=== PATIENT | female | born 1965 | race Two or more races ===

== ENCOUNTER 2020-04-17 13:49 | Outpatient (REF) | payer OTHER, SELFPAY ==
--- NOTE | 2020-04-17 | MM_ITS ---
EXAMINATION: MM SCREENING DIGITAL BREAST TOMOSYNTHESIS, BILATERAL CLINICAL INFORMATION: Screening. Asymptomatic. The lifetime risk of breast cancer based on the Tyrer-Cuzick Model is 7.0%. COMPARISON: Mammography: October 08, 2018 and studies dating back to December 06, 2011 TECHNIQUE: Digital breast tomosynthesis is performed in both the craniocaudal and mediolateral oblique views along with computer-aided detection (CAD). Synthesized 2D images are generated from the tomosynthesis. FINDINGS: There are scattered areas of fibroglandular density (ACR BI-RADS breast composition Category b). There are no significant masses, abnormal calcifications, or other abnormalities. There is a stable circumscribed density about the superior aspect of the left breast. MM/MM tomosynthesis screening BI IMPRESSION: There are no significant changes from prior study. ASSESSMENT: BI-RADS 1: Negative RECOMMENDATION: Routine annual mammography screening. This patient's information was entered into a reminder system with a target due date for their next mammogram.
== END 2020-04-17 13:50 | disposition home or self-care (01) ==
LOC: HO.MAMMO 13:49
PROVIDERS: PCP Internal Medicine; Visit Provider Internal Medicine
DX: Z12.31 Encounter for screening mammogram for malignant neoplasm of breast (principal)
CPT/HCPCS: 77063; 77067

== ENCOUNTER → 2020-06-29 14:25 | Outpatient (BNVA) | payer OTHER, SELFPAY | PROVIDERS: PCP Internal Medicine; Visit Provider Nurse Practitioner | DX: Z01.818 Encounter for other preprocedural examination (principal) | CPT/HCPCS: Q3014 ==

== ENCOUNTER 2020-11-04 13:50 | Outpatient (REF) | payer OTHER, SELFPAY ==
--- NOTE | ~2020-11-04 | US_ITS ---
EXAMINATION: US EXTRACRANIAL CAROTID DUPLEX, BILATERAL CLINICAL INFORMATION: Unilateral hypertensive retinopathy of the left COMPARISON: None TECHNIQUE: Real-time ultrasound and Doppler techniques (integrating B-mode 2-D vascular images, Doppler spectral analysis and color-flow Doppler imaging) were utilized to interrogate the extracranial carotid arteries, the vertebral arteries and proximal subclavian arteries bilaterally. The degree of stenosis is determined by criteria similar to NASCET. FINDINGS: Right Side: 1. There is trace atherosclerotic plaque seen in the bifurcation/proximal ICA region. 2. The common carotid artery PSV proximally is 120 cm/s and distally 94.4 cm/s. 3. The proximal internal carotid artery velocities are 70.9 cm/s systolic and 22.3 cm/s diastolic. 4. The proximal external carotid artery PSV is 117 cm/s. 5. The vertebral artery shows antegrade flow. 6. The subclavian artery waveforms are normal. Left Side: 1. There is minimal atherosclerotic plaque seen in the bifurcation/proximal ICA region. 2. The common carotid artery PSV proximally is 122 cm/s and distally 92.6 cm/s. 3. The proximal internal carotid artery velocities are 70.9 cm/s systolic and 18.8 cm/s diastolic. 4. The proximal external carotid artery PSV is 123 cm/s. 5. The vertebral artery shows antegrade flow. 6. The subclavian artery waveforms are normal. US/US carotid duplex BI IMPRESSION: 1. RIGHT: Minimal, non-hemodynamically significant stenosis of the proximal right internal carotid artery corresponding to a 0-49% stenosis by velocity criteria. 2. LEFT: Minimal, non-hemodynamically significant stenosis of the proximal left internal carotid artery corresponding to a 0-49% stenosis by velocity criteria.
== END 2020-11-04 13:51 | disposition home or self-care (01) ==
LOC: HO.HMGCX 13:50
PROVIDERS: PCP Internal Medicine; Visit Provider Internal Medicine
DX: H35.032 Hypertensive retinopathy, left eye (principal)
CPT/HCPCS: 93880

== ENCOUNTER 2020-11-27 10:57 | Outpatient (REF) | payer OTHER, SELFPAY ==
[2020-11-27 12:20] LABS: Cholesterol 225 mg/dL; HDL Cholesterol 51 mg/dL; LDL Cholesterol Calculated 139 mg/dl; Triglycerides 179 mg/dL
[2020-11-27 13:02] LABS: Creatinine Urine 150.67 mg/dL; Microalbum/Creatinine Ratio Ur 11.2 ug/mg cr
== END 2020-11-27 10:58 | disposition home or self-care (01) ==
LOC: HO.LAB 10:57
PROVIDERS: PCP Internal Medicine; Visit Provider Internal Medicine
DX: I10 Essential (primary) hypertension (principal)
CPT/HCPCS: 36415; 80061; 82043

== ENCOUNTER 2021-05-20 11:53 | Outpatient (REF) | payer OTHER, SELFPAY ==
--- NOTE | ~2021-05-20 | MM_ITS ---
EXAMINATION: MM SCREENING DIGITAL BREAST TOMOSYNTHESIS, BILATERAL CLINICAL INFORMATION: Screening. Asymptomatic. The lifetime risk of breast cancer based on the Tyrer-Cuzick Model is 14%. COMPARISON: Mammography: 04/17/2020, 10/08/2018, 09/18/2017 TECHNIQUE: Digital breast tomosynthesis is performed in both the craniocaudal and mediolateral oblique views along with computer-aided detection (CAD). Synthesized 2D images are generated from the tomosynthesis. Additional right CC view is provided. FINDINGS: There are scattered areas of fibroglandular density (ACR BI-RADS breast composition Category b). There are no significant masses, abnormal calcifications, or other abnormalities. Parenchymal pattern is similar to prior studies. There is no developing density or architectural abnormality. The axilla and skin contours are unremarkable. No significant changes. MM/MM tomosynthesis screening BI IMPRESSION: No mammographic evidence of malignancy. ASSESSMENT: BI-RADS 1: Negative RECOMMENDATION: Routine annual mammography screening. This patient's information was entered into a reminder system with a target due date for their next mammogram.
== END 2021-05-20 11:54 | disposition home or self-care (01) ==
LOC: HO.MAMMO 11:53
PROVIDERS: PCP Internal Medicine; Visit Provider Internal Medicine
DX: Z12.31 Encounter for screening mammogram for malignant neoplasm of breast (principal)
CPT/HCPCS: 77063; 77067

== ENCOUNTER 2021-07-23 10:46 | Outpatient (REF) | payer OTHER, SELFPAY ==
[2021-07-23 12:39] LABS: MANUAL DIFF FLAG NO
[2021-07-23 13:00] LABS: Basophils Absolute Auto 0.1 X10*3/uL (0.0-0.2); Basophils Percent Auto 0.7 % (0-2); Eosinophils Absolute Auto 0.1 X10*3/uL (0.0-0.4); Eosinophils Percent Auto 1.5 % (0-4); Hematocrit 42.1 % (37.0-47.0); Hemoglobin 14.3 g/dl (12.0-16.0); Imm Gran Abs Auto 0.05 X10*3/uL (0.00-0.03); Imm Gran Pct Auto 0.6 % (0.0-0.4); Lymphocytes Absolute Auto 3.3 X10*3/uL (1.2-4.9); Lymphocytes Percent Auto 38.1 % (20-40); Mean Corpuscular Hemoglobin 28.2 pg (27.0-33.0); Mean Platelet Volume 9.3 fL (9.4-12.3); Monocytes Absolute Auto 0.7 X10*3/uL (0.1-1.2); Monocytes Percent Auto 7.6 % (2-11); Neutrophils Absolute Auto 4.4 x10*3/uL (2.0-8.3); Neutrophils Percent Auto 51.5 % (45-73); Platelet Count 296 X10*3/uL (160-400); Red Blood Count 5.07 X10*6/uL (4.20-5.50); Red Cell Distribution Width 12.8 % (11.0-16.0); White Blood Count 8.6 X10*3/uL (4.8-10.8)
[2021-07-23 13:19] LABS: Alanine Aminotransferase 36 U/L (0-31); Albumin Level 4.5 g/dL (3.5-5.0); Alkaline Phosphatase 89 U/L (39-117); Anion Gap 12 (12-20); Aspartate Amino Transferase 24 U/L (5-31); Bilirubin Total 0.5 mg/dL (0.0-1.0); Blood Urea Nitrogen 10 mg/dL (9-16); Calcium 9.9 mg/dL (8.4-10.2); Carbon Dioxide 28 mmol/L (22-29); Chloride 103 mmol/L (96-108); Estimated Glomerular Filt Rate > 60; Glucose Random 128 mg/dL (60-115); Potassium 4.1 mmol/L (3.3-5.1); Sodium 139 mmol/L (135-145); Total Protein 7.8 g/dL (6.5-8.0)
== END 2021-07-23 10:47 | disposition home or self-care (01) ==
LOC: HO.LAB 10:46
PROVIDERS: PCP Internal Medicine; Referring Provider Internal Medicine; Visit Provider Nurse Practitioner
DX: Z12.11 Encounter for screening for malignant neoplasm of colon (principal)
CPT/HCPCS: 36415; 80053; 85025; 99212

== ENCOUNTER 2021-10-29 10:19 | Day surgery (SDC) | payer OTHER, SELFPAY ==
[2021-10-25 12:16] VITALS: BMI 30.2
--- NOTE | 2021-10-28 13:57 | P.CONAN_ITS ---
Documented by User: Akosua Parish NP 10/28/21 13:58 HPI - Anesthesia Eval Consult details Narrative: 56yo F for Colonoscopy PMFSH Active Problems Active Problems: All Active Problems (Updated 10/25/21 @ 12:13 by Luz Cotto, INÉS) Colon cancer screening (Acute) Positive PPD (Acute) Hypertension (Acute) Rosacea (Acute) Insomnia (Acute) Allergic rhinitis (Acute) Chronic neck pain (Acute) Lipoma of neck (Acute) Diabetes (Acute) Past Medical History Medical History Diabetes History of positive PPD HTN (hypertension) Rosacea Surgical History Surgical History No history of previous surgery Social History Social History (Updated 10/29/21 @ 10:55 by Yanet Bowen MD) Household Members: Spouse Alcohol intake: current Alcohol intake frequency: does not drink Patient Tobacco Use Status: Never used Tobacco Use of substances other than those prescribed or required for medical reasons: No Are you DNR?: No Advance Directives: No Advance Directives Information Provided: Yes Meds Allergies Allergy/AdvReac Type Severity Reaction Status Date / Time No Known Allergies Allergy Verified 07/23/21 11:40 Home Medications Medication Instructions Recorded Confirmed Last Taken Type chlorthalidone 25 mg tablet 25 mg PO DAILY 06/29/20 Unknown History hydrocortisone 2.5 % topical cream appl topical 06/29/20 Unknown History Exam Exam Date and Time: October 28, 2021 1357 Height,Weight and Vital Signs: Height 5 ft 2 in Weight 74.843 kg Pertinent Lab Results Pertinent Lab Results: Laboratory Tests 07/23/21 07/23/21 12:36 12:36 WBC 8.6 Hgb 14.3 Hct 42.1 Plt Count 296 Sodium 139 Potassium 4.1 Chloride 103 Carbon Dioxide 28 BUN 10 Creatinine 0.84 Assessment and Plan Assessment Anesthesia Assessment: Chart Reviewed Documented by User: Yanet Bowen MD 10/29/21 12:03 [facility] Active Problems Active Problems: All Active Problems (Updated 10/25/21 @ 12:13 by Luz Cotto RN) Colon cancer screening (Acute) Positive PPD (Acute) Hypertension (Acute) Rosacea (Acute) Insomnia (Acute) Allergic rhinitis (Acute) Chronic neck pain (Acute) Lipoma of neck (Acute) Diabetes diet-controlled Past Medical History Medical History Diabetes History of positive PPD HTN (hypertension) Rosacea Family History Family history of problems with anesthesia: No Surgical History Surgical History No history of previous surgery History of Problems with Anesthesia: No Social History Social History (Updated 10/29/21 @ 10:55 by Yanet Bowen MD) Household Members: Spouse Alcohol intake: current Alcohol intake frequency: does not drink Patient Tobacco Use Status: Never used Tobacco Use of substances other than those prescribed or required for medical reasons: No Are you DNR?: No Advance Directives: No Advance Directives Information Provided: Yes Meds Allergies Allergy/AdvReac Type Severity Reaction Status Date / Time No Known Allergies Allergy Verified 07/23/21 11:40 Home Medications Medication Instructions Recorded Confirmed Last Taken Type chlorthalidone 25 mg tablet 25 mg PO DAILY 06/29/20 Unknown History hydrocortisone 2.5 % topical cream appl topical 06/29/20 Unknown History Exam Height,Weight and Vital Signs: Height 5 ft 2 in Weight 74.843 kg Vital Signs Temp Pulse Resp BP Pulse Ox O2 Del Method 10/29/21 10:55 97.3 F 83 16 147/91 H 98 Room Air Airway Mallampati Class: II TM Dist: >3cm Neck ROM: Full Loose/Missing/Broken Teeth: Yes (1 missing bottom left) Heart: RRR Lungs: CTAB Assessment and Plan Assessment Anesthesia Assessment: Anesthesia Plan Discussed Final Anesthetic Review Family History of Problems with Anesthesia: No History of Problems with Anesthesia: No NPO: Yes ASA Class: II Final Preanesthetic Review: No Changes in Pt Med Stat, Meds/Allgs Chart Reviewed, Consent Obtained/Reviewed and Anes Risks/Benef Reviewed Patient Risk: Low Procedure Risk: Low Assessment/Block/Sedation in SS: Assess/Block/Sedation-SS Anesthetic Plan Anesthetic Plan: MAC: Disposition: Standard PACU
[2021-10-29 10:55] VITALS: BP 147/91; PULSE 83; RESP 16; TEMP 36.3; O2SAT 98
--- NOTE | 2021-10-29 11:28 | MHC.SHP ---
Pre-Procedural Eval Section A Date of Service: 10/29/21 The patient is an INPATIENT: No The History & Physical has been completed within 30 days and I have reviewed it.: No Section B Chief Complaint: screening Details of Present Illness: Colon cancer screening, brother had colon surgery (indication not know to the patient) Relevant Social History: None Present Medications: see Short Stay Collaborative assessment Medical History: Significant History (History of positive PPD Hypertension In occult blood in the stools Rosacea Insomnia History of leiomyoma of the uterus Allergic rhinitis/conjunctivitis Chronic neck pain LIpoma left neck) History of Previous Operations: No relevant previous surgery Allergies: Allergies Allergy/AdvReac Type Severity Reaction Status Date / Time No Known Allergies Allergy Verified 07/23/21 11:40 Review of Systems Sugical H&P ROS: Negative: Constitution, Cardiovascular, Respiratory and Gastrointestinal Exam Surgical H&P Exam: Normal: Heart, Normal: Lungs, Normal: Extremities and Normal: Abdomen Plan Diagnosis/Plan: Unchanged I have reviewed the history and physical and performed a pertinent physical examination on my patient. No changes have occurred unless specified.
--- NOTE | 2021-10-29 12:29 | P.OP_ITS ---
Operative Note Operative Note Date of Service: 10/29/21 Narrative: Pre-op diagnosis: Colon cancer screening, brother had colon surgery (indication not know to the patient) Post-op diagnosis:?other (Colon polyps, diverticulosis, hemorrhoids) Procedure: COLONOSCOPY TILL CECUM WITH BIOPSIES AND SNARE POLYPECTOMY Consent: Indications for the procedure and potential complications of bleeding, perforation, reaction to medications and missed diagnosis were discussed with the patient and informed consent was obtained. Instrument: Olympus PCF H 190 L variable stiffness pediatric colonoscope Monitoring: Vital signs and clinical assessment, intermittent blood pressure monitoring, continuous EKG monitoring, Pulse oximetry and Carbon Dioxide monitoring were done throughout the procedure. Colon withdrawl time was 20 minutes. Procedure: The patient was placed in the left lateral decubitis position and pre-procedure medications were administered. After a digital rectal examination of the ano-rectum, the video colonoscope was inserted into the rectum and advanced through the colon to the cecum. The colonoscope was slowly withdrawn in a retrograde panoramic fashion and the colon mucosa was carefully examined including a retroflexed view of the rectum. Findings and interventions are described below. Procedure Difficulty: Without difficulty Findings: Terminal Ileum: Not evaluated Cecum:? Normal Ascending Colon:? A 3-4 mm diminutive appearing polyp removed with a cold biopsy Transverse Colon:? Two 12 - 15 mm sessile polyps removed with a hot snare. Descending Colon:? Moderate diverticulosis Sigmoid Colon:? Two 12 to 15 mm sessile polyps removed with a hot snare. A 2 to 2.5 cms sessile polyp at 25 cms removed with a hot snare. Moderate diverticulosis Rectum:? Normal Ano-rectum:? Moderate internal hemorrhoids Colon preparation: Excellent ? Impression and Post Procedure Diagnosis: Colonoscopy Findings: Six small to medium sized and one large polyps removed Moderate diverticulosis seen in the left colon Moderate hemorrhoids on retroflexed exam. Plan: Await pathology results Patient has an appointment on 11/12/21 in the GI Clinic with? Radha Kang NP. Repeat Colonoscopy interval based on path results - in 2 years if polyps are adenomatous and 10 years if polyps are hyperplastic. Above findings were reviewed with the patient and colon polyps and diverticulosis handouts were given in the discharge area Surgeon: Lourdes Fried MD Anesthesia:?MAC Was an Bag Machine Operator used for this Procedure?:?Yes Bag Machine Operator:?Darlene Fontana Estimated blood loss (mL):?0 Pathology:?other ( A: biopsy ascending colon polyp? B: transverse colon polyps? C: sigmoid polyps? D: sigmoid polyp at 25 cm) Condition:?stable Disposition:?PACU
[2021-10-29 13:06] VITALS: BP 90/59; PULSE 74; RESP 16; TEMP 37.1; O2SAT 96
[2021-10-29 13:21] VITALS: BP 136/73; PULSE 70; RESP 17; O2SAT 99
[2021-10-29 13:36] VITALS: BP 135/69; PULSE 85; RESP 18; TEMP 37.1; O2SAT 96
== END 2021-10-29 14:00 | disposition home or self-care (01) ==
PROVIDERS: PCP Internal Medicine; Visit Provider Internal Medicine Gastroenterology
PROC: 0DJD8ZZ Inspection of Lower Intestinal Tract, Via Natural or Artificial Opening Endoscopic (ICD-10-PCS; CPT 45378; principal; 2021-10-29 11:40)
DX: Z12.11 Encounter for screening for malignant neoplasm of colon (principal); D12.3 Benign neoplasm of transverse colon; D12.5 Benign neoplasm of sigmoid colon; K63.5 Polyp of colon; K57.30 Diverticulosis of large intestine without perforation or abscess without bleeding; K64.8 Other hemorrhoids; I10 Essential (primary) hypertension; R76.11 Nonspecific reaction to tuberculin skin test without active tuberculosis; E11.9 Type 2 diabetes mellitus without complications; H57.13 Ocular pain, bilateral; L71.9 Rosacea, unspecified; J30.9 Allergic rhinitis, unspecified
CPT/HCPCS: 45385; 45380; 88305

== ENCOUNTER → 2021-11-12 11:19 | Outpatient (BNVA) | payer OTHER, SELFPAY | PROVIDERS: PCP Internal Medicine; Visit Provider Nurse Practitioner | DX: D12.6 Benign neoplasm of colon, unspecified; Z79.899 Other long term (current) drug therapy | CPT/HCPCS: 99212 ==

== ENCOUNTER 2021-12-09 14:05 | Outpatient (REF) | payer OTHER, SELFPAY ==
[2021-12-09 15:18] LABS: Appearance Urine Clear; Color Urine Yellow; Glucose Urine UA Negative (Negative); Leukocyte Esterase Urine Moderate (2+) (Negative); Nitrite Urine Negative (Negative); PH 6.5 (5.0-9.0); UMIC TRIGGER UACC YES; Urine Blood Trace (Negative); Urine Ketones Negative (Negative); Urine Protein Negative (Neg-Trace)
[2021-12-09 15:51] LABS: Bacteria Urine None Seen (None Seen); Hyaline Casts Urine 0-2 /LPF (0-2); RBC Urine 0-2 /HPF (0-2); Squamous Epithelial Cell Urine 0-2 /HPF (0-2); WBC Urine 0-5 /HPF (0-5)
== END 2021-12-09 14:06 | disposition home or self-care (01) ==
LOC: HO.LAB 14:05
PROVIDERS: Visit Provider Nurse Practitioner
DX: R10.13 Epigastric pain (principal); R19.5 Other fecal abnormalities; R30.0 Dysuria
CPT/HCPCS: 81001; 81003; 99212

== ENCOUNTER 2021-12-10 13:51 | Outpatient (REF) | payer OTHER, SELFPAY ==
[2021-12-10 15:28] LABS: Campylobacter Not Detected (Not Detect.); Cryptosporidium Not Detected (Not Detect.); E. coli EAEC Not Detected (Not Detect.); E. coli EPEC Not Detected (Not Detect.); E. coli ETEC Not Detected (Not Detect.); E. coli STEC Not Detected (Not Detect.); Plesiomonas shigelloides Not Detected (Not Detect.); Salmonella Not Detected (Not Detect.); Shigella sp./EIEC Not Detected (Not Detect.); Vibrio Not Detected (Not Detect.); Vibrio Cholerae Not Detected (Not Detect.); Yersinia enterocolitica Not Detected (Not Detect.)
[2021-12-10 15:29] LABS: Adenovirus F 40/41 Not Detected (Not Detect.); Astrovirus Not Detected (Not Detect.); Cyclospora cayetanensis Not Detected (Not Detect.); Entamoeba histolytica Not Detected (Not Detect.); Giardia lamblia Not Detected (Not Detect.); Norovirus GI/GII Not Detected (Not Detect.); Rotavirus A Not Detected (Not Detect.); Sapovirus Not Detected (Not Detect.)
== END 2021-12-10 13:52 | disposition home or self-care (01) ==
LOC: HO.LNP 13:51
PROVIDERS: Visit Provider Nurse Practitioner
DX: R30.0 Dysuria (principal); R19.5 Other fecal abnormalities
CPT/HCPCS: 87507

== ENCOUNTER 2022-01-07 12:25 | Outpatient (REF) | payer OTHER, SELFPAY ==
--- NOTE | 2022-01-07 | PFT_ITS ---
FLOWS: FEV1 109% of predicted at 2.44 L. FVC 96% of predicted at 2.73 L. FEV1 to FVC ratio of 0.89. The patient refused bronchodilator testing. LUNG VOLUMES: Total lung capacity 87% of predicted at 3.91 L. Residual volume 66% of predicted at 1.16 L. Slow vital capacity 101% of predicted at 2.75 L. Expiratory reserve volume 41% of predicted at 0.30 L. Diffusion capacity is normal. IMPRESSION: No obstructive or restrictive ventilatory defect. The patient refused bronchodilator testing. Decreased expiratory reserve volume suggests extrathoracic restriction likely secondary to abdominal obesity. Elias Partida MD AP/MODL / [id number]
--- NOTE | ~2022-01-07 | XR_ITS ---
EXAMINATION: XR CHEST CLINICAL INFORMATION: Shortness of breath COMPARISON: Previous chest x-ray most recent March 2018 TECHNIQUE: 2 views of the chest were obtained. FINDINGS: No significant abnormality is noted involving the heart, lungs, mediastinum, bony thorax or soft tissues. XR/XR chest 2V IMPRESSION: Unremarkable examination.
== END 2022-01-07 12:26 | disposition home or self-care (01) ==
LOC: HO.RESP 12:25
PROVIDERS: Absent Provider Internal Medicine; PCP Internal Medicine; Visit Provider Family Medicine
DX: R06.02 Shortness of breath (principal)
CPT/HCPCS: 71046; 94010; 94727; 94729

== ENCOUNTER → 2022-01-19 14:02 | Outpatient (BNVA) | payer OTHER, SELFPAY | PROVIDERS: PCP Internal Medicine; Referring Provider Internal Medicine; Visit Provider Nurse Practitioner | DX: R30.0 Dysuria (principal); K21.9 Gastro-esophageal reflux disease without esophagitis; R19.5 Other fecal abnormalities; D12.6 Benign neoplasm of colon, unspecified | CPT/HCPCS: 99212 ==

== ENCOUNTER 2022-06-07 11:33 | Outpatient (REF) | payer OTHER, SELFPAY ==
--- NOTE | ~2022-06-07 | MM_ITS ---
EXAMINATION: MM SCREENING DIGITAL BREAST TOMOSYNTHESIS, BILATERAL CLINICAL INFORMATION: Screening. Asymptomatic. The lifetime risk of breast cancer based on the Tyrer-Cuzick Model is 12%. COMPARISON: Mammography: 05/20/2021, 04/17/2020, 10/08/2018 TECHNIQUE: Digital breast tomosynthesis is performed in both the craniocaudal and mediolateral oblique views along with computer-aided detection (CAD). Synthesized 2D images are generated from the tomosynthesis. FINDINGS: There are scattered areas of fibroglandular density (ACR BI-RADS breast composition Category b). There are no significant masses, abnormal calcifications, or other abnormalities. No architectural abnormality or developing density or significant change from prior studies. The axilla and skin contours are unremarkable. MM/MM tomosynthesis screening BI IMPRESSION: No mammographic evidence of malignancy. ASSESSMENT: BI-RADS 1: Negative RECOMMENDATION: Routine annual mammography screening. This patient's information was entered into a reminder system with a target due date for their next mammogram.
== END 2022-06-07 11:34 | disposition home or self-care (01) ==
LOC: HO.MAMMO 11:33
PROVIDERS: PCP Nurse Practitioner Primary Care; Visit Provider Nurse Practitioner Primary Care
DX: Z12.31 Encounter for screening mammogram for malignant neoplasm of breast (principal)
CPT/HCPCS: 77063; 77067

== ENCOUNTER → 2022-07-19 13:34 | Outpatient (BNVA) | payer OTHER, SELFPAY | PROVIDERS: PCP Nurse Practitioner Primary Care; Visit Provider Nurse Practitioner | DX: K21.9 Gastro-esophageal reflux disease without esophagitis (principal); R10.13 Epigastric pain; R19.5 Other fecal abnormalities | CPT/HCPCS: 99212 ==

== ENCOUNTER 2022-12-02 13:06 | Outpatient (REF) | payer OTHER, SELFPAY ==
[2022-12-02 16:32] LABS: Anion Gap 14 (12-20); Blood Urea Nitrogen 13 mg/dL (9-16); Calcium 9.5 mg/dL (8.4-10.2); Carbon Dioxide 26 mmol/L (22-29); Chloride 105 mmol/L (96-108); Cholesterol 233 mg/dL (<200); Estimated Glomerular Filt Rate > 60; Glucose Random 110 mg/dL (60-115); HDL Cholesterol 58 mg/dL (>40); LDL Cholesterol Calculated 145 mg/dL (<100); Potassium 3.7 mmol/L (3.3-5.1); Sodium 141 mmol/L (135-145); Triglycerides 150 mg/dL (<150)
[2022-12-02 16:36] LABS: Estimated Average Glucose 146 mg/dL; Hemoglobin A1c % 6.7 % (<6.0)
[2022-12-02 18:10] LABS: Creatinine Urine 237.44 mg/dL; Microalbum/Creatinine Ratio Ur 12.6 ug/mg cr (<30)
== END 2022-12-02 13:07 | disposition home or self-care (01) ==
LOC: HO.HHCL 13:06
PROVIDERS: Visit Provider Nurse Practitioner Primary Care
DX: E11.59 Type 2 diabetes mellitus with other circulatory complications (principal); I15.2 Hypertension secondary to endocrine disorders
CPT/HCPCS: 36415; 80048; 80061; 82043; 82570; 83036

== ENCOUNTER 2023-03-21 12:47 | Outpatient (REF) | payer OTHER, SELFPAY ==
[2023-03-21 14:28] LABS: Alanine Aminotransferase 25 U/L (0-31); Albumin Level 4.4 g/dL (3.5-5.0); Alkaline Phosphatase 84 U/L (39-117); Anion Gap 13 (12-20); Aspartate Amino Transferase 20 U/L (5-31); Bilirubin Total 0.5 mg/dL (0.0-1.0); Blood Urea Nitrogen 15 mg/dL (9-16); Calcium 9.5 mg/dL (8.4-10.2); Carbon Dioxide 28 mmol/L (22-29); Chloride 104 mmol/L (96-108); Estimated Glomerular Filt Rate > 60; Glucose Random 162 mg/dL (60-115); Potassium 3.8 mmol/L (3.3-5.1); Sodium 141 mmol/L (135-145); Total Protein 7.9 g/dL (6.5-8.0)
== END 2023-03-21 12:48 | disposition home or self-care (01) ==
LOC: HO.LAB 12:47
PROVIDERS: PCP Nurse Practitioner Primary Care; Visit Provider Nurse Practitioner
DX: Z01.818 Encounter for other preprocedural examination (principal); R10.13 Epigastric pain; K21.9 Gastro-esophageal reflux disease without esophagitis; Z86.010 Personal history of colon polyps
CPT/HCPCS: 36415; 80053; 99212

== ENCOUNTER 2023-03-21 12:47 | Outpatient (AMB) | payer OTHER, SELFPAY ==
--- NOTE | 2023-03-21 13:01 | MHC.OFFVIS ---
Intake Vital Signs 03/21/23 13:02 Height 4 ft 11 in Weight 160 lb 0.889 oz BMI 32.3 BP 142/79 H Blood Pressure Location Lt brachial Position Sitting Pulse 69 Intake Visit Reasons: 8 month follow up Intake Note: Patient presents to in office visit today in 8 months follow up of epigastric pain. CC: Patient reports she is doing well. Denies having any GI symptoms today. Cane Flume Chute Operator Required: Yes Cane Flume Chute Operator Name: aidan Rodarte Accompanied by: Self / Same As Patient Allergies No Known Allergies Allergy (Verified 03/21/23 13:03) HPI 8 month follow up HPI Details Assessment & Plan (1) GERD (gastroesophageal reflux disease): Code(s): K21.9 - Gastro-esophageal reflux disease without esophagitis Plan: Vietnamese #Onofre LIve She continues to do well and has not been using the omeprazole or the bentyl! ROV 8 mos to discuss her next scope. (2) Abdominal cramping: Code(s): R10.9 - Unspecified abdominal pain (3) Loose stools: Code(s): R19.5 - Other fecal abnormalities Medications: Discontinued omeprazole Disc ontinued Reason: Doctor's Order 40 mg PO DAILY 30 days 30 caps 3RF TODAY'S VISIT Vietnamese #[id number] THE SHE WILL BE DUE FOR REPEAT COLONOSCOPY IN 2023 BECAUSE OF VERY LARGE COLON POLYPS DISCOVERED IN 2021. She is also no longer using the bentyl as she has not needed it. I will d/c it. She is agreeable to having the colonoscopy ordered today. I have asked her to go for lab work. Her only new health problems are high cholesterol and some allergic rhinitis. She denies any cardiac or respiratory problems. No Id problems She had very large TA's in 2021. [facility] Medical History Rosacea History of positive PPD Diabetes HTN (hypertension) Surgical History H/O colonoscopy Social History Household Members: Spouse Alcohol intake: current Alcohol intake frequency: does not drink Patient Tobacco Use Status: Never used Tobacco Review of Systems Const Denies fatigue, Denies fever(s), Denies night sweats, Denies poor appetite and Denies weight loss ENT Reports Normal hearing present, Denies dental pain, Denies dysphagia, Denies hearing loss, Denies mouth pain, Denies odynophagia, Denies throat swelling, Denies tongue swelling and Reports other (Dentition adequate) Card Reports no additional complaints Resp Reports no additional complaints GI Denies abdominal pain, Denies melena, Denies bloating, Denies hematochezia, Denies constipation, Denies GI cramping, Denies dysphagia, Denies excessive flatus, Denies early satiety, Denies heartburn, Denies diarrhea, Denies nausea, Denies odynophagia, Denies vomiting and Denies hematemesis Skin/Breast Denies pruritus, Denies lesions, Denies rash and Denies jaundice Neuro Reports Normal hearing present and Denies Abnormal speech present Endo Denies fatigue Aller/Immun Denies throat swelling and Denies tongue swelling Physical Exam Vital Signs: Last Vital Signs Pulse 69 03/21/23 13:02 BP 142/79 H 03/21/23 13:02 BMI result Body Mass Index 32.3 Const General: cooperative, no acute distress, well developed and well groomed Nutritional Appearance: well nourished and obese Orientation/consciousness: oriented to person, oriented to place and oriented to time Limitations: language barrier HEENT Head: Yes normocephalic and Yes atraumatic Eyes General: appearance normal, both eyes and all related structures Pupils: Equal, round and reactive pupils present Neck Neck: Yes normal visual inspection and Yes no lymphadenopathy Thyroid: Thyroid normal Resp Effort & Inspection: normal respiratory effort and able to speak in complete sentences Auscultation: clear to auscultation bilaterally Cardio Rate: regular rate Rhythm: regular rhythm Heart sounds: Normal, physiologic split S2 sound present Peripheral pulses: radial pulses present and posterior tibial pulses present GI Inspection: No distended, Yes Abdominal panniculus present and Yes obesity Palpation (GI): Soft to palpation, nontender, no guarding, not rigid and No hepatosplenomegaly present Percussion: Yes normal to percussion Auscultation: normal bowel sounds Rectal Exam - Female: deferred Skin General skin exam: no rashes or lesions noted, turgor normal, skin not dry, no jaundice, No spider nevi and no striae Rashes: no rashes Nails: normal Neuro General: oriented to person, oriented to place and oriented to time Cranial nerves: Yes Equal, round and reactive pupils present and Yes Normal hearing present Speech: No Abnormal speech present Extrem General: Yes normal to inspection, No clubbing, No cyanosis and No edema Psych Appearance: grossly normal and well kempt Mental Status: mental status grossly normal Speech and movement: Normal speech and movement present Affect: normal affect Attitude: cooperative Thought process: Normal thought process present and not confabulating Thought content: Normal thought content present Insight: Fair insight present (Psych) Judgement: Fair judgement present (Psych) Assessment & Plan Assessment & Plan (1) Pre-op examination: Code(s): Z01.818 - Encounter for other preprocedural examination (2) Tubular adenoma of colon: Comment: 10/2021=w large sessile repeat 2 years Code(s): D12.6 - Benign neoplasm of colon, unspecified (3) GERD (gastroesophageal reflux disease): Code(s): K21.9 - Gastro-esophageal reflux disease without esophagitis (4) Abdominal cramping: Code(s): R10.9 - Unspecified abdominal pain Plan Vietnamese #[id number] THE SHE WILL BE DUE FOR REPEAT COLONOSCOPY IN 2023 BECAUSE OF VERY LARGE COLON POLYPS DISCOVERED IN 2021. She is also no longer using the bentyl as she has not needed it. I will d/c it. She is agreeable to having the colonoscopy ordered today. I have asked her to go for lab work. Her only new health problems are high cholesterol and some allergic rhinitis. She denies any cardiac or respiratory problems. No Id problems She had very large TA's in 2021. Orders: Orders Colonoscopy - GI Use Only Today D12.6 - Benign neoplasm of colon, unspecified, Z01.818 - Encounter for other preprocedural examination Comprehensive Met. Panel Today D12.6 - Benign neoplasm of colon, unspecified, Z01.818 - Encounter for other preprocedural examination Medications: New bisacodyl (Dulcolax (bisacodyl)) 10 mg (2 x 5 mg) PO BEDTIME 2 days 4 tabs 0RF Refilled dicyclomine 10 mg PO TID 90 caps 3RF R10.13 - Epigastric pain Coding Level of Care Code Est Pt Level 4 (53774) Diagnoses Pre-op examination Z01.818 Tubular adenoma of colon D12.6 GERD (gastroesophageal reflux disease) K21.9 Abdominal cramping R10.9
[2023-03-21 13:02] VITALS: BP 142/79; PULSE 69; BMI 32.3
== END 2023-03-21 13:27 | disposition home or self-care (01) ==
PROVIDERS: PCP Nurse Practitioner Primary Care; Visit Provider Nurse Practitioner
DX: K21.9 Gastro-esophageal reflux disease without esophagitis (principal); Z01.818 Encounter for other preprocedural examination; Z86.010 Personal history of colon polyps
CPT/HCPCS: 99214

== ENCOUNTER 2023-04-06 09:55 | Outpatient (REF) | payer OTHER, SELFPAY ==
[2023-04-06 11:54] LABS: MANUAL DIFF FLAG NO
[2023-04-06 12:09] LABS: Basophils Absolute Auto 0.1 X10*3/uL (0.0-0.2); Basophils Percent Auto 1.2 % (0-2); Eosinophils Absolute Auto 0.2 X10*3/uL (0.0-0.4); Eosinophils Percent Auto 2.1 % (0-4); Hematocrit 41.9 % (37.0-47.0); Hemoglobin 14.5 g/dl (12.0-16.0); Imm Gran Abs Auto 0.05 X10*3/uL (0.00-0.03); Imm Gran Pct Auto 0.7 % (0.0-0.4); Lymphocytes Percent Auto 39.1 % (20-40); Mean Corpuscular HGB Conc 34.6 g/dl (31.0-35.0); Mean Corpuscular Hemoglobin 29.3 pg (27.0-33.0); Mean Corpuscular Volume 84.6 fL (80.0-98.0); Mean Platelet Volume 9.7 fL (9.4-12.3); Monocytes Absolute Auto 0.7 X10*3/uL (0.1-1.2); Monocytes Percent Auto 9.1 % (2-11); Neutrophils Absolute Auto 3.6 x10*3/uL (2.0-8.3); Neutrophils Percent Auto 47.8 % (45-73); Platelet Count 308 X10*3/uL (160-400); Red Blood Count 4.95 X10*6/uL (4.20-5.50); Red Cell Distribution Width 12.7 % (11.0-16.0); White Blood Count 7.6 X10*3/uL (4.8-10.8)
== END 2023-04-06 09:56 | disposition home or self-care (01) ==
LOC: HO.HHCL 09:55
PROVIDERS: Visit Provider Nurse Practitioner Primary Care
DX: M89.8X9 Other specified disorders of bone, unspecified site (principal)
CPT/HCPCS: 36415; 82550; 85025

== ENCOUNTER 2023-04-25 14:13 | Outpatient (REF) | payer OTHER, SELFPAY | END 2023-04-25 14:14 | disposition home or self-care (01) | LOC: HO.HHCL 14:13 | PROVIDERS: Visit Provider Nurse Practitioner Primary Care | DX: R74.8 Abnormal levels of other serum enzymes (principal) | CPT/HCPCS: 36415; 82550 ==

== ENCOUNTER 2023-06-13 11:25 | Outpatient (REF) | payer OTHER, SELFPAY | END 2023-06-13 11:26 | disposition home or self-care (01) | LOC: HO.MAMMO 11:25 | PROVIDERS: PCP Nurse Practitioner Primary Care; Visit Provider Nurse Practitioner Primary Care | DX: Z12.31 Encounter for screening mammogram for malignant neoplasm of breast (principal) | CPT/HCPCS: 77063; 77067 ==

== ENCOUNTER → 2023-06-13 11:45 | Outpatient (BNV) | payer OTHER, SELFPAY | PROVIDERS: PCP Nurse Practitioner Primary Care; Visit Provider Radiology Diagnostic Radiology | DX: Z12.31 Encounter for screening mammogram for malignant neoplasm of breast (principal) | CPT/HCPCS: 77063; 77067 ==

== ENCOUNTER 2023-06-26 13:21 | Outpatient (REF) | payer OTHER, SELFPAY ==
[2023-06-30 21:08] LABS: HPV mRNA E6/E7 rflx Not Detected (Not Detected)
== END 2023-06-26 13:22 | disposition home or self-care (01) ==
LOC: HO.HHCL 13:21
PROVIDERS: Advanced Practice Midwife; Visit Provider Nurse Practitioner Primary Care
DX: R74.8 Abnormal levels of other serum enzymes (principal); D21.9 Benign neoplasm of connective and other soft tissue, unspecified
CPT/HCPCS: 36415; 82550; 87624; 88142

== ENCOUNTER 2023-07-05 12:27 | Outpatient (REF) | payer OTHER, SELFPAY ==
--- NOTE | ~2023-07-05 | US_ITS ---
EXAMINATION: US PELVIS COMPLETE CLINICAL INFORMATION: History of uterine fibroid disease; postmenopausal patient. COMPARISON: Pelvic ultrasound dated 11/29/2018. TECHNIQUE: Transabdominal and transvaginal imaging were performed. FINDINGS: The uterus is of normal size and echogenicity, measuring 9.2 x 5.1 x 8.0 cm. The uterus is anteverted and anteflexed. A regular, homogeneous endometrium is identified measuring 0.4 cm. FIBROIDS: There are 8 fibroids seen. 1. Location: Posterior lower body, subserosal. Size: 3.9 x 2.7 x 3.9 cm. Prior: 3.5 x 2.1 x 3.4 cm. Fibroid characteristics: Heterogeneously hypoechoic. 2. Location: Posterior lower body, subserosal. Size: 2.9 x 3.0 x 2.8 cm. Prior: 2.7 x 2.6 x 2.6 cm. Fibroid characteristics: Heterogeneously hypoechoic. 3. Location: Anterior lower body, myometrial. Size: 1.5 x 1.3 x 1.7 cm. Prior: 1.5 x 1.0 x 1.3 cm. Fibroid characteristics: Heterogeneously hypoechoic. 4. Location: Posterior mid body, myometrial. Size: 3.2 x 2.6 x 2.6 cm. Prior: 1.5 x 1.6 x 1.3 cm. Fibroid characteristics: Heterogeneously hyperechoic, with shadowing calcifications. 5. Location: Anterior upper body, myometrial. Size: 1.5 x 1.2 x 1.3 cm. Prior: Not seen. Fibroid characteristics: Heterogeneous echotexture. 6. Location: Anterior lower fundus, myometrial. Size: 2.3 x 1.6 x 1.9 cm. Prior: 2.3 x 1.7 x 1.3 cm. Fibroid characteristics: Heterogeneous echotexture. 7. Location: Anterior fundus, myometrial. Size: 2.1 x 2.1 x 1.6 cm. Prior: Not seen. Fibroid characteristics: Heterogeneous echotexture. 8. Location: Posterior fundus, exophytic, subserosal. Size: 5.1 x 4.2 x 6.1 cm. Prior: 4.7 x 4.5 x 6.8 cm. Fibroid characteristics: Mildly hypoechoic. The right ovary is not visualized. The left ovary measures 3.0 x 1.7 x 1.8 cm, for a volume of 4.9 mL. There is no pelvic free fluid. No adnexal mass is seen. US/US pelvic and transvaginal IMPRESSION: 1. There are numerous uterine fibroids, as above. 2. The right ovary is not visualized.
== END 2023-07-05 12:28 | disposition home or self-care (01) ==
LOC: HO.HMGCX 12:27
PROVIDERS: PCP Nurse Practitioner Primary Care; Visit Provider Advanced Practice Midwife
DX: D21.9 Benign neoplasm of connective and other soft tissue, unspecified (principal)
CPT/HCPCS: 76830; 76856

== ENCOUNTER 2023-09-07 10:52 | Outpatient (REF) | payer OTHER, SELFPAY ==
[2023-09-07 12:47] LABS: Cholesterol 222 mg/dL (<200); HDL Cholesterol 50 mg/dL (>40); LDL Cholesterol Calculated 133 mg/dL (<100); Triglycerides 198 mg/dL (<150)
[2023-09-07 13:29] LABS: TSH reflex Free T4 0.95 uIU/mL (0.32-4.0); Vitamin D 25-OH Total 22.2 ng/mL (>30)
== END 2023-09-07 10:53 | disposition home or self-care (01) ==
LOC: HO.HHCL 10:52
PROVIDERS: Visit Provider Nurse Practitioner Primary Care
DX: R74.8 Abnormal levels of other serum enzymes (principal); E11.69 Type 2 diabetes mellitus with other specified complication; E78.5 Hyperlipidemia, unspecified; Z78.9 Other specified health status
CPT/HCPCS: 36415; 80061; 82306; 82550; 84443

== ENCOUNTER 2024-02-05 11:23 | Day surgery (SDC) | payer OTHER, SELFPAY ==
--- NOTE | 2023-08-17 09:37 | HO.ANESPROP2 ---
HPI - Anesthesia Eval Consult details Narrative: 58yo F for Colonoscopy PMFSH Active Problems Active Problems: All Active Problems Pre-op examination (Acute) Abdominal cramping (Acute) GERD (gastroesophageal reflux disease) (Acute) Urinary tract infection (Acute) Loose stools (Acute) Dysuria (Acute) Epigastric pain (Acute) Tubular adenoma of colon (Acute) Colon cancer screening (Acute) Positive PPD (Acute) Hypertension (Acute) Rosacea (Acute) Insomnia (Acute) Allergic rhinitis (Acute) Chronic neck pain (Acute) Lipoma of neck (Acute) Diabetes (Acute) Past Medical History Medical History Rosacea History of positive PPD Diabetes HTN (hypertension) Family History Family history of problems with anesthesia: No Surgical History Surgical History H/O colonoscopy History of Problems with Anesthesia: No Social History Social History Household Members: Spouse Alcohol intake: current Alcohol intake frequency: does not drink Patient Tobacco Use Status: Never used Tobacco Meds Allergies Allergy/AdvReac Type Severity Reaction Status Date / Time No Known Allergies Allergy Verified 03/21/23 13:03 Home Medications ?Medication ?Instructions ?Recorded ?Confirmed ?Last Taken ?Type lisinopril 2.5 mg tablet 2.5 mg PO DAILY 03/21/23 Unknown History Assessment and Plan Assessment Anesthesia Assessment: Chart Reviewed Final Anesthetic Review Family History of Problems with Anesthesia: No History of Problems with Anesthesia: No
[2023-08-17 13:30] VITALS: BMI 32.3
--- NOTE | 2024-02-02 09:52 | HO.ANESPROP2 ---
Documented by User: Akosua Parish NP 02/02/24 09:52 HPI - Anesthesia Eval Consult details Narrative: 58yo F for Colonoscopy PMFSH Active Problems Active Problems: All Active Problems Pre-op examination (Acute) Abdominal cramping (Acute) GERD (gastroesophageal reflux disease) (Acute) Urinary tract infection (Acute) Loose stools (Acute) Dysuria (Acute) Epigastric pain (Acute) Tubular adenoma of colon (Acute) Colon cancer screening (Acute) Positive PPD (Acute) Hypertension (Acute) Rosacea (Acute) Insomnia (Acute) Allergic rhinitis (Acute) Chronic neck pain (Acute) Lipoma of neck (Acute) Diabetes (Acute) Past Medical History Medical History Rosacea History of positive PPD Diabetes HTN (hypertension) Family History Family history of problems with anesthesia: No Surgical History Surgical History H/O colonoscopy History of Problems with Anesthesia: No Social History Social History Household Members: Spouse Are you a primary child care centre manager to a significant other at home: No Do you presently have visiting nurse or other home services: No Alcohol intake: current Alcohol intake frequency: does not drink Patient Tobacco Use Status: Never used Tobacco Have you been hit, kicked, punched, or otherwise hurt by someone within the past year? If so, by whom?: No Are you DNR?: No Advance Directives: No Advance Directives Information Provided: Yes Recently lost weight without trying: No Nutrition Risks: No Nutritional Risk Patient : No Meds Allergies Allergy/AdvReac Type Severity Reaction Status Date / Time No Known Allergies Allergy Verified 03/21/23 13:03 Home Medications ?Medication ?Instructions ?Recorded ?Confirmed ?Last Taken ?Type lisinopril 2.5 mg tablet 2.5 mg PO DAILY 03/21/23 Unknown History Exam Height,Weight and Vital Signs: Height 4 ft 11 in Weight 72.575 kg Assessment and Plan Assessment Anesthesia Assessment: Chart Reviewed Final Anesthetic Review Family History of Problems with Anesthesia: No History of Problems with Anesthesia: No Documented by User: Nicola Mcdaniels MD 02/05/24 12:45 PMFSH Past Medical History Medical History Rosacea History of positive PPD Diabetes HTN (hypertension) Surgical History Surgical History H/O colonoscopy Social History Social History Household Members: Spouse Are you a primary child care centre manager to a significant other at home: No Do you presently have visiting nurse or other home services: No Alcohol intake: current Alcohol intake frequency: does not drink Patient Tobacco Use Status: Never used Tobacco Have you been hit, kicked, punched, or otherwise hurt by someone within the past year? If so, by whom?: No Are you DNR?: No Advance Directives: No Advance Directives Information Provided: Yes Recently lost weight without trying: No Nutrition Risks: No Nutritional Risk Patient : No Meds Allergies Allergy/AdvReac Type Severity Reaction Status Date / Time No Known Allergies Allergy Verified 03/21/23 13:03 Home Medications ?Medication ?Instructions ?Recorded ?Confirmed ?Last Taken ?Type lisinopril 2.5 mg tablet 2.5 mg PO DAILY 03/21/23 Unknown History Exam Airway Mallampati Class: II TM Dist: >3cm Neck ROM: Full Assessment and Plan Assessment Anesthesia Assessment: Anesthesia Plan Discussed Final Anesthetic Review ASA Class: II Final Preanesthetic Review: No Changes in Pt Med Stat, Meds/Allgs Chart Reviewed, Consent Obtained/Reviewed, Anes Risks/Benef Reviewed and DNR Form (If Appl.) Patient Risk: Low Procedure Risk: Low Anesthetic Plan Anesthetic Plan: TIVA Disposition: Standard PACU
--- NOTE | 2024-02-05 12:07 | MHC.SHP ---
Pre-Procedural Eval Section A - 24 Hr Update-Section A only Date of Service: 02/05/24 The patient is an INPATIENT: No The patient has been examined within 24 hours of the surgical procedure. The History & Physical has been completed within 30 days and I have reviewed it.: No Section B - Complete if H&P > 30 days Chief Complaint: Surveillance for colon polyps Relevant Family History (Specify if Yes): No Relevant Social History: None Present Medications: see Short Stay Collaborative assessment Medical History: Significant History (Rosacea History of positive PPD Diabetes HTN (hypertension)) History of Previous Operations: Relevant previous surgery/procedure and date(s) (History of colonoscopy) Allergies: Allergies Allergy/AdvReac Type Severity Reaction Status Date / Time No Known Allergies Allergy Verified 03/21/23 13:03 Review of Systems Sugical H&P ROS: Negative: Constitution, Cardiovascular, Respiratory and Gastrointestinal Exam Surgical H&P Exam: Normal: Heart, Normal: Lungs, Normal: Extremities and Normal: Abdomen Plan Diagnosis/Plan: Unchanged I have reviewed the history and physical and performed a pertinent physical examination on my patient. No changes have occurred unless specified. Time Spent With Patient Time: Total time managing care of this patient today ____ minutes.
[2024-02-05 12:23] LABS: Glucose, Whole Blood 99 mg/dL (60-115)
[2024-02-05 12:25] VITALS: BP 134/78; PULSE 76; RESP 18; TEMP 36.3; O2SAT 96
--- NOTE | 2024-02-05 13:30 | HO.OPN-COLON ---
Colonoscopy Operative Note Operative Note Date of Service: 02/05/24 Narrative: COLONOSCOPY TILL CECUM WITH BIOPSIES AND SNARE POLYPECTOMY Pre-op diagnosis: Surveillance for colon polyps. Post-op diagnosis:? Colon polyps, Diverticulosis, hemorrhoids Endoscopist:? Lourdes Fried MD Anesthesia:?MAC Consent: Indications for the procedure and potential complications of bleeding, perforation, reaction to medications and missed diagnosis were discussed with the patient and informed consent was obtained. Instrument: Olympus PCF H 190 L variable stiffness pediatric colonoscope Monitoring: Vital signs and clinical assessment, intermittent blood pressure monitoring, continuous EKG monitoring, Pulse oximetry and Carbon Dioxide monitoring were done throughout the procedure. Please see anesthesia flowsheet. Colon withdrawl time was 25 minutes. Procedure: The patient was placed in the left lateral decubitis position and pre-procedure medications were administered. After a digital rectal examination of the ano-rectum, the video colonoscope was inserted into the rectum and advanced through the colon to the cecum. The colonoscope was slowly withdrawn in a retrograde panoramic fashion and the colon mucosa was carefully examined including a retroflexed view of the rectum. Findings and interventions are described below. Procedure Difficulty: without difficulty Findings: Terminal Ileum: Not evaluated Cecum: Prominent distal lip of ICV - biopsies were obtained to rule out adenomatous change Ascending Colon: Normal Transverse Colon: A 4-5 mm sessile polyp - removed with a cold biopsy Descending Colon: Normal Sigmoid Colon: A 5-6 mm sessile polyp - removed with a cold snare and polyp was not retrieved. Moderate diverticulosis Rectum: Normal Ano-rectum: Moderate internal hemorrhoids Colon preparation: Excellent, after some irrigation. [place] Bowel Preparation Scale Right colon; 3 Transverse colon: 3 Left colon; 3 (0 = Unprepared colon segment with mucosa not seen due to solid stool that cannot be cleared. 1 = Portion of mucosa of the colon segment seen, but other areas of the colon segment not well seen due to staining, residual stool and/or opaque liquid. 2 = Minor amount of residual staining, small fragments of stool and/or opaque liquid, but mucosa of colon segment seen well. 3 = Entire mucosa of colon segment seen well with no residual staining, small fragments of stool or opaque liquid) Impression and Post Procedure Diagnosis: Colonoscopy Findings: Two small polyps were removed Prominent distal lip of ICV - biopsies were obtained to rule out adenomatous change Moderate diverticulosis seen in the sigmoid [left] [entire] colon Moderate hemorrhoids on retroflexed exam. Plan: Pt has a FU appointment on 02/20/24 with Radha Kang NP. Repeat Colonoscopy in 3 years if polyps are adenomatous and due to a hx of multiple colon polyps on past colonoscopy. If biopsies from ICV show adenomatous change, repeat colon in 6 months. Above findings were reviewed with the patient and relevant handouts were given and the discharge area. BIOPSIES SHOWED: A. Ileocecal valve, biopsy: Ileocolonic mucosa with focally active inflammation. B. Colon, transverse, polypectomy: Tubular adenoma; negative for high-grade dysplasia or carcinoma. Letter sent advising repeat colon in 3 years. Pt placed on the colonoscopy recall list.
[2024-02-05 13:36] VITALS: BP 100/60; PULSE 70; RESP 14; TEMP 36.6; O2SAT 96
[2024-02-05 13:51] VITALS: BP 117/79; PULSE 73; RESP 16; TEMP 36.6; O2SAT 98
== END 2024-02-05 14:07 | disposition home or self-care (01) ==
PROVIDERS: PCP Nurse Practitioner Primary Care; Visit Provider Internal Medicine Gastroenterology
PROC: 0DJD8ZZ Inspection of Lower Intestinal Tract, Via Natural or Artificial Opening Endoscopic (ICD-10-PCS; CPT 45378; principal; 2024-02-05 13:20)
DX: Z12.11 Encounter for screening for malignant neoplasm of colon (principal); Z86.0101 Personal history of adenomatous and serrated colon polyps; D12.3 Benign neoplasm of transverse colon; K63.5 Polyp of colon; K57.30 Diverticulosis of large intestine without perforation or abscess without bleeding; K64.8 Other hemorrhoids; K21.9 Gastro-esophageal reflux disease without esophagitis; I10 Essential (primary) hypertension; E11.9 Type 2 diabetes mellitus without complications; R76.11 Nonspecific reaction to tuberculin skin test without active tuberculosis; L71.9 Rosacea, unspecified; Z79.899 Other long term (current) drug therapy
CPT/HCPCS: 45385; 45380; 82947; 88305; J2003; J2704

== ENCOUNTER → 2024-02-05 11:23 | Outpatient (BNV) | payer OTHER, SELFPAY | PROVIDERS: PCP Nurse Practitioner Primary Care; Visit Provider Internal Medicine Gastroenterology | DX: Z12.11 Encounter for screening for malignant neoplasm of colon (principal); Z86.0100 Personal history of colon polyps, unspecified; D12.3 Benign neoplasm of transverse colon; K63.5 Polyp of colon; K57.30 Diverticulosis of large intestine without perforation or abscess without bleeding; K64.8 Other hemorrhoids | CPT/HCPCS: 45380; 45385 ==

== ENCOUNTER 2024-06-18 11:01 | Outpatient (REF) | payer OTHER, SELFPAY ==
--- OUTSIDE RECORDS SUMMARY | 2024-06-18 13:17 | XMS_ITS | Clinical Summary ---
Author Organization [employer] Address [address] [place] [address] Care Team Providers Care Rn Patient Care Name Role Phone Nirali Bowser Primary Care Provider Allergies Active Allergy Reactions Criticality Noted Date Comments Cetirizine Headache,Anxiety Low 05/24/2019 Pravastatin Other Low 03/02/2023 Change in taste Medications Blood Glucose Monitoring Suppl (FreeStyle Lite) w/Device kit 2 Active Calcium Carb-Cholecalcif maria g 600-10 MG-MCG tablet Take 1 capsule by mouth in the morning. 7 Active FreeStyle lancetsIndicatio ns:Hypertension associated with diabetes (CMS/[facility]) 1 each by Other route 2 times daily. 100 each 3 Active FREESTYLE LITE test stripIndications :Hypertension associated with diabetes (CMS/HCC) Twice daily as needed 100 each 3 Active Alcohol Swabs padsIndications: Type 2 diabetes mellitus with hyperglycemia, without long-term current use of insulin ([facility]) 1 each if needed (to clean skin). 100 each 3 Active glucose blood test stripIndications :Type 2 diabetes mellitus with hyperglycemia, without long-term current use of insulin ([facility]) 1 each by Other route 2 times daily. 100 each 12 3 Active Blood Glucose Monitoring Suppl (FreeStyle Winnett Lite) w/Device kitIndications:T ype 2 diabetes mellitus with hyperglycemia, without long-term current use of insulin ([facility]) Use to test blood sugar 3 times daily 1 kit 3 Active simvastatin (Zocor) 10 MG tabletIndication s:Type 2 diabetes mellitus with other circulatory complication, without long-term current use of insulin (CMS/HCC) Take 1 tablet (10 mg) by mouth at bedtime. 90 tablet 3 4 11/22/19 25 Active Azelastine-Fluti casone 137-50 MCG/ACT suspensionIndica tions:Non-season al allergic rhinitis due to other allergic trigger Administer 1 spray into affected nostril(s) every 12 (twelve) hours. As needed for allergies/conge stion 23 g 2 5 Active lisinopril 2.5 MG tabletIndication s:Type 2 diabetes mellitus with hyperglycemia, without long-term current use of insulin (CMS/HCC) TAKE 1 TABLET BY MOUTH EVERY MORNING 90 tablet 1 5 Active Active Problems Problem Noted Date Diagnosed Date Dental calculus 12/15/2023 Periodontal disease 12/15/2023 Gingival bleeding 12/15/2023 Tooth sensitivity 12/15/2023 Chest wall discomfort 06/01/2023 Assessment & Plan (06/01/2023 6:22 AM EDT): EKG today HR 76x, QTC 436, NSR ,TWI in lead III but rest wnl -pain seems muscular- pain is reproduced w palpation -warm compresses advised and NSAIDS prn -alarm signs symptoms discussed w pt Sciatica of right side 06/01/2023 Assessment & Plan (06/01/2023 6:22 AM EDT): 03/2023 CBC and chem wnl Right lower back/buttock pain Seems sciatica, muscular pain ,normal neuro examination -warm compresses -avoid excessive activity for few days -tylenol prn and NDSIDS prn for mod pain -mucle relaxants for few days -- -prescribed muscle relaxant for few days -prior bedtime-explained to avoid ETOH,and to not drive or use heavy machinery after taking medication Type 2 diabetes mellitus wit h circulatory disorder, without long-term current use of insulin 12/19/2022 Overview (12/23/2022): DM: diagnosed in 2019 with A1C 6.8. Has strong FH of DM. Has been watching her diet and exercising. Metformin 500 BID was started previously but it gave her nausea/GI upset so she stopped it. Has been exercising regularly, likes to play tennis/basketball ASCVD risk 8.1% 12/02/22 On statin, ACEi Hypertension associated with diabetes (CMS/HCC) 05/05/2022 Overview (12/23/2022): Current regimen: Lisinopril 2.5mg daily For reference: amlodipine caused headaches and palpitations. 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/2011 Uterine leiomyoma 10/13/2011 Encounters Date Type Department Care Team Description 06/11/2024 Patient Outreach [facility] [address] [place] [phone] Nirali Bowser ANP Pre-visit Planning (SDOH Screening negative and Tobacco screening negative) 04/30/2024 Refill [facility] [place] [address] Nirali Bowser ANP Type 2 diabetes mellitus with hyperglycemia, without long-term current use of insulin ([facility]/HCC) 04/24/2024 Travel 04/22/2024 Telephone [facility] [place] [address] Rema Russ MA June recall 03/26/2024 2:00 PM EST Office Visit [facility] [place] [address] Nirali Bowser ANP Hypertension associated with diabetes (CMS/HCC) (Primary Dx); Non-seasonal allergic rhinitis due to other allergic trigger 03/26/2024 Travel 03/25/2024 Telephone [facility] [place] [address] Kylee Joseph MA chart prep 03/25/2024 Telephone [facility] [place] [address] Kylee Joseph MA from Last 3 Months Immunizations Name Administration Dates Next Due INFLUENZA VACCINE QUADRIVALE NT RECOMBINANT PRESERVATIVE FREE RIV4 12/25/2019 Influenza injectable quadriv alent IIV4 with preservative 01/22/2018 Influenza injectable quadriv alent preservative free 12/19/2022,05/05/2022,01/25/2021,2018 Influenza, IIV3, injectable 01/17/2014, 1 Influenza, Split (incl. mauricio fied surface antigen) 04/09/2013,02/01/2012 Influenza, seasonal, injecta ble, preservative free 01/22/2024 MMR 03/08/2013 Pfizer Covid-19 Vaccine 12+ 08/06/2020, 1 TD (adult), 2 Lf tetanus tox oid, preservative free, adsorbed 04/27/2023,04/04/2002 Tdap 04/09/2013 Zoster, Recombinant 02/06/2019 Family History Medical History Relation Name Comments Ovarian cancer Mother Relation Name Status Comments Mother Social History Tobacco Use Types Packs/Day Years Used Date Smoking Tobacco: Never Passive Smoke Exposure: Never Smokeless Tobacco: Never Tobacco Cessation:Counseling Given: Not Answered Alcohol Use Standard Drinks/Week Comments Never 0 (1 standard drink = 0.6 oz pur e alcohol) Depression Answer Date Recorded Patient Health Questionnaire-9 Score 17 11/22/2023 Patient Health Questionnaire-9 Score 17 11/22/2023 Last PHQ-9: Questionnaire Data Not on file 0 11/22/2023 Housing Stability Answer Date Recorded What is your housing situation today? I have cipriano ramires 06/11/[address] you li ve. Do you have problems with any of the following? None of the above 06/11/2024 Food Insecurity Answer Date Recorded Within the past 12 months, y ou worried that your food would run out before you got money to buy more: Never True 06/11/2024 Within the past 12 months,th e food you bought just didn't last and you didn't have enough money to get more: Never True Transportation Answer Date Recorded In the past 12 months, has l ack of transportation kept you from medical appts, meetings, work or from getting things needed for daily living? No 06/11/2024 Utilities Answer Date Recorded In the past 12 months, has t he electric, gas, oil or water company threatened to shut off services in your home? No 06/11/2024 Depression Answer Date Recorded Patient Health Questionnaire-2 Score 5 11/22/2023 Internet Access Answer Date Recorded Internet Access Q1 Yes 06/11/2024 Internet Access Q2 I do not want or need it 05/19 Comments No Sex and Gender Information Value Date Recorded Sex Assigned at Female 01/17/2022 10:16 AM EDT Legal Sex Female 10:16 AM EDT Gender Identity Female 01/17/2022 10:16 AM EDT Sexual Orientation Straight 01/17/2022 10 :16 AM EDT Last Filed Vital Signs Vital Sign Reading Time Taken Comments Blood Pressure 134/84 03/26/2024 1:59 PM EST Pulse 81 03/26/2024 1:59 PM EST Temperature 36.3 ??C (97.4 ??F) 03/26/2024 1:59 PM ES T Respiratory Rate 14 03/26/2024 1:59 PM EST Oxygen Saturation 97% 03/26/2024 1:59 PM EST Inhaled Oxygen Concentration - - Weight 71.8 kg (158 lb 6.4 oz) 03/26/2024 1:59 P M EST Height 152.4 cm (5') 11/22/2023 3:13 PM EDT Body Mass Index 30.94 11/22/2023 3:13 PM EDT Plan of Treatment Upcoming Encounters Date Type Department Care Team (Late st Contact Info) Description 06/21/2024 1:30 PM EDT Office Visit [facility] [address] [place] [phone] Nirali Bowser ANP [address] [place] [address] 06/25/2024 3:15 PM EDT Office Visit [facility] [address] [place] [phone] Gabriela Noriega CNM [address] [place] [address] 07/05/2024 10:00 AM EDT Office Visit [facility] [address] [place] [address] Lise Rogers [address] [place] [address] Health Maintenance Due Date Last Done Comments CT Colonography 1965 FIT DNA/Cologuard 1965 FIT 1965 FOBT 1965 HIV Screening 1965 Sigmoidoscopy 1965 Diabetes: Foot Exam 1974 Eye Exam 1974 Alcohol/Substance Use Screening 1976 Hepatitis B Vaccines (1 of 3 - 19+ 3-dose series) 07/31/1983 Pneumococcal Vaccine: 50+ Years (1 of 2 - PCV) 07/31/1983 Zoster Vaccines (2 of 2) 04/03/2019 02/06/2019 COVID-19 Vaccine ( season) 2023 05/21/2021, 08/06/2020, 07/16/2020 Diabetes: Urine Protein Screening 12/03/2023 12/02/2022, 07/22/2021, 11/27/2020 Dental X-Ray: Full Mouth 01/07/2024 021, 10/16/2013, 05/02/2008 Dental Oral Exam 05/03/2024 10/31/2023, , 05/15/2018, Additional history exists Depression Monitoring (PHQ-9) 05/21/2024 11/22/2023, 11/22/2023 Mammogram 06/12/2024 06/13/2023, 05/19, 05/20/2021, Additional history exists Dental Prophylaxis 06/14/2024 12/15/2023, 0 09/13/2021, 01/05/2021, Additional history exists Diabetes: Hemoglobin A1C 06/24/2024 025, 11/22/2023, 06/23/2023, Additional history exists Lipid Panel 09/06/2024 09/07/2023, 11/18, 11/27/2020 Dental X-Ray: Bitewings 10/31/2024 10/31/19 24, 09/13/2021, 01/05/2021, Additional history exists Depression Screening 11/21/2024 11/22/2023, 11/22/19 Tobacco Screening 03/26/2025 03/26/2024 SDOH Screening 06/11/2025 06/11/2024 Colonoscopy 02/01/2027 10/29/2021 Colorectal Cancer Screening 02/01/2027 Cervical Cancer Screening 06/25/2028 HPV/Cotest 06/25/2028 06/26/2023, 11/21/2018 Pap Smear 06/25/2028 06/26/2023 DTaP/Tdap/Td Vaccines (3 - Td or Tdap) 04/27/2033 04/27/2023, 04/09/2013, 04/04/2002 RSV Patients and Patients Aged 60 years or older (1 - 1-dose 75+ series) 07/31/2039 Hepatitis C Screening Completed 06/25/2020 Influenza Vaccine Completed 01/22/2024, , 05/05/2022, Additional history exists HIB Vaccines Aged Out No longer eligi ble based on patient's age to complete this topic HPV Vaccines Aged Out No longer eligi ble based on patient's age to complete this topic Hepatitis A Vaccines Aged Out No long er eligible based on patient's age to complete this topic IPV Vaccines Aged Out No longer eligi ble based on patient's age to complete this topic Meningococcal Vaccine Aged Out No shabana nitza eligible based on patient's age to complete this topic RSV under 20 months Aged Out No longe r eligible based on patient's age to complete this topic Rotavirus Vaccines Aged Out No longer eligible based on patient's age to complete this topic Procedures Procedure Name Priority Date/Time Associated Diagnosis Comments POCT GLYCATED HEMOGLOBIN, TOTAL Routine 03/26/2024 2:10 PM EST Hypertension associated with diabetes (CMS/HCC) POCT GLUCOSE Routine 03/26/2024 2:09 PM EST Hypertension associated with diabetes (CMS/HCC) PROPHYLAXIS - ADULT Routine 12/15/2023 1 :00 PM EDT Dental calculus Periodontal disease Gingival bleeding Tooth sensitivity BITEWINGS - 4 RADIOGRAPHIC IMAGES Routine 10/31/2023 10:00 AM EDT PERIODIC ORAL EVALUATION - ESTABLISHED PATIENT Routine 10/31/2023 10:00 AM EDT LIPID PANEL, STANDARD Routine 09/07/2023 10:57 AM EDT Type 2 diabetes mellitus with hyperlipidemia (CMS/HCC) (CMS/HCC) HPV MRNA E6/E7 REFLEX TO HPV 16, 18/45 Routine 06/26/2023 1:05 PM EDT PAP SMEAR Routine 06/26/2023 1:05 PM EDT Cervical cancer screening BI MAMMOGRAM SCREENING TOMOSYNTHESIS BILATERAL Routine 06/13/2023 11:45 AM EDT ALBUMIN, RANDOM URINE W/CREATININE Routine 12/02/2022 1:16 PM EDT Hypertension associated with diabetes (CMS/HCC) HM COLONOSCOPY Routine 10/29/2021 INTRAORAL - COMPLETE SERIES OF RADIOGRAPHIC IMAGES Routine 01/05/2021 12:00 AM EDT ZZZ HISTORICAL HEPATITIS C AB W/REFL TO HCV RNA, QN, PCR Routine 06/25/2020 12:08 PM EDT from Last 3 Months or Most Recently Relevant to Health Maintenance Results * (ABNORMAL) POCT HGB A1C (03/26/2024 2:10 PM EST) Hemoglobin A1C 6.9(A) 4.0 - 6.0 % QC Media Lot # [id number] Lot# Expiration Date ,026 Blood 03/26/2024 2:10 PM EST Nirali [facility] POINT OF CARE TEST ENTER/EDIT OR DERABLES Final Result * POCT Glucose (03/26/2024 2:09 PM EST) Glucose Blood, POC 136 60 - 200 mg/dL QC Media Lot # [id number] Lot# Expiration Date ,242,025 Blood Capillary blood specimen / Unknown 03/26/2024 2:09 PM EST Nirali Bowser ANP POINT OF CARE TEST ENTER/EDIT OR DERABLES Final Result * (ABNORMAL) Lipid Panel, Standard (09/07/2023 10:57 AM EDT) Triglycerides 198(H) <150 mg/dL [facility] Comment:Desirable Triglyceri de: less than 150 mg/dLBorderline High Triglyceride 150-199 mg/dLHigh Triglyceride: 200-499 mg/dLVery High Triglyceride: greater than or equal to 5OO mg/dL Cholesterol 222(H) <200 mg/dL [facility] Comment:Desirable Cholestero l: less than 200 mg/dLBorderline High Cholesterol: 200-239 mg/dLHigh Cholesterol: greater than 239 mg/dL LDL Cholesterol Calculated 133(H) <100 mg/dL [facility] Comment:Desirable LDL: less than 100 mg/dLNear Optimal/Above Optimal LDL: 110- 129 mg/dLBorderline High LDL: 130-159 mg/dLHigh LDL: 160-189 mg/dLVery High LDL: greater than or equal to 190 mg/dL HDL Cholesterol 50 >40 mg/dL [facility] Comment:Desirable HDL: great er than 40 mg/dL Note: This HDL assay may give artificially low results in patients with liver disease. Blood Venous blood specimen / Unknown 09/07/2023 10:57 AM EDT 09/07/2023 11:28 AM EDT Nirali Bowser [facility] BLOOD ORDERABLES Final Resul t [facility] [address] [place] [phone] * HPV mRNA E6/E7 w/Reflex to HPV Genotypes 16, 18/45 (06/26/2023 1:05 PM EDT) HPV nRNA E6/E7 Not Detected Not Detected [facility] Comment:Methodology: Transcr iption-Mediated AmplificationThis assay detects E6/E7 viral messenger RNA (mRNA) from 14high-risk HPV types (16,18,31,33,35,39,45,51,52,56,58,59,66,68).Cervical sources are required for HPV testing.If a vaginal source from a patient who has had atotal hysterectomy with removal of cervix wassubmitted, please contact the testing laboratoryfor alternative testing options.For additional information, please refer tohttp://education.appCREAR/faq/JFG402d0(This link if provided for information/educational purposes only.)THIS TEST WAS PERFORMED AT:[facility] [place] [phone] GONZALEZ MD HPV mRNA E6/E7 TNP [facility] HPV 16 RNA [facility] HPV 18/45 RNA [facility] 06/26/2023 1:05 PM EDT 06/27/2023 2:00 PM EDT Gabriela Noriega [facility] CYTOLOGY ORDERABLES F inal Result [facility] [address] [place] [address] [phone] * Pap Smear (06/26/2023 1:05 PM EDT) Swab Cervix uteri structure / Unknown 06/26/2023 1:05 PM EDT 06/27/2023 2:00 PM EDT Narrative [facility] - 07/10/2023 10:51 AM EDT ----- ------- Name: Sherry Ferguson I ?Age/Sex: 57/F ? : 1965 Unit#: [id number] ?? Attend Dr: NIRALI BOWSER NP ?Re06/26/23 ?Status: DEP REF ? Location: HO.HHCL ? Disch: ? ----- ------- SPEC : [id number] ? RECD: 06/27/23-1400 ? STATUS: ??SOUT ? REQ NUM: [id number] ? ZE: 06/26/23-1305 ? SUBM DR: GABRIELA NORIEGA CNM ? ENTERED: ??06/27/23-7576 ?SP TYPE: Pap Smr ?OTHR DR: ? ORDERED: ??Pap Smear ? Interpretation ?? Satisfactory for evaluation. ?? Negative for intraepithelial lesion or malignancy. ?HPV mRNA E6/E7: ?NOT DETECTED ? This assay detects E6/E7 viral messenger RNA (mRNA) from 14 high-risk HPV types (16, 18, ?? 31, 33, 35, 39, 45, 51, 52, 56, 58, 59, 66, 68) ?? HPV testing performed by [employer] [place], [place]. ??See reference laboratory ?? portion of the EMR for entire report. ?Clinical Information LMP: Postmenopausal Previous PAP test: 2019, WNL ? Material Received ?? ThinPrep-Vaginal/Cervical ----- ------- Signed (signature on file) LATOYA Curran (ASCP) 07/10/23 1051 ? ----- ------- ? END OF REPORT ? us Gabriela Noriega [facility] CYTOLOGY ORDERABLES F inal Result [facility] [address] [place] [phone] * BI Mammogram Screening Tomosynthesis Bilateral (06/13/2023 11:45 AM EDT) Anatomical Region Laterality Modality Breast Bilateral Mammography 06/13/2023 11:4 5 AM EDT Narrative 06/29/2023 6:16 AM EDT ? [facility] ? [address] ?[place] [address] ? Mammography Report ? Signed ? Patient: Marty,Sherry I ?MR#: [id number] ?? 6 ? : 1965 ?Acct:[id number] ? Age/Sex: 57 / F ?ADM Date: 06/13/23 ? Loc: HO.MAMMO ? Attending Dr: Nirali Bowser SHIP RIGGER ? Ordering Physician: NIRALI BOWSER NP ?Results: 1Negative ? Date of Service: 06/13/23 ?Follow Up: 1 Year From Orig ?? inal Mammogram ? Procedure(s): MM tomosynthesis screening BI ?? Accession Number(s): [id number] ? cc: NIELS,NIRALI MORALES ? EXAMINATION: ?? MM SCREENING DIGITAL BREAST TOMOSYNTHESIS, BILATERAL ? CLINICAL INFORMATION: ? Screening. Asymptomatic. ? COMPARISON: ?? Mammography: This study is compared with prior exams dating back to ?? 2019. ? TECHNIQUE: ?? Digital breast tomosynthesis is performed in both the craniocaudal and ?? mediolateral oblique views along with computer-aided detection (CAD). ?? Synthesized 2D images are generated from the tomosynthesis. ? FINDINGS: ?? There are scattered areas of fibroglandular density (ACR BI-RADS breast ?? composition Category b). ? There are no significant masses, abnormal calcifications, or other ?? abnormalities. ? MM/MM tomosynthesis screening BI ?? IMPRESSION: ?? No mammographic evidence of malignancy. ? ASSESSMENT: ? BI-RADS BI-RADS 1 - Negative ? RECOMMENDATION: ?? Routine annual mammography screening. ? 1 year F/U ? This examination should not preclude the clinical evaluation of a ?? suspicious palpable abnormality. ? This patient's information was entered into a reminder system with a ?? target due date for their next mammogram. ? Dictated By: ?Gabrielle Bautista MD ? Signed By: ?<Electronically signed by Gabrielle Bautista MD in OV> ? 06/29/23611 ? DD/ 1145 ? TD/TT: ? Press Manager: ? Procedure Note Jennifer Alba - 06/29/2023 [place] [facility] [address] [place] [address] Mammography Report Signed Patient: Sherry Ferguson IMR#: [id number] 6 : 1965Acct:[id number] Age/Sex: 57 / FADM Date: 06/13/23 Loc: HO.MAMMO Attending Dr: Nirali Bowser NP Ordering Physician: NIRALI BOWSER NPResults: 1Negative Date of Service: 06/13/23Follow Up: 1 Year From Orig inal Mammogram Procedure(s): MM tomosynthesis screening BI Accession Number(s): [id number] cc: NIRALI BOWSER NP EXAMINATION: MM SCREENING DIGITAL BREAST TOMOSYNTHESIS, BILATERAL CLINICAL INFORMATION: Screening. Asymptomatic. COMPARISON: Mammography: This study is compared with prior exams dating back to 2019. TECHNIQUE: Digital breast tomosynthesis is performed in both the craniocaudal and mediolateral oblique views along with computer-aided detection (CAD). Synthesized 2D images are generated from the tomosynthesis. FINDINGS: There are scattered areas of fibroglandular density (ACR BI-RADS breast composition Category b). There are no significant masses, abnormal calcifications, or other abnormalities. MM/MM tomosynthesis screening BI IMPRESSION: No mammographic evidence of malignancy. ASSESSMENT: BI-RADS BI-RADS 1 - Negative RECOMMENDATION: Routine annual mammography screening. 1 year F/U This examination should not preclude the clinical evaluation of a suspicious palpable abnormality. This patient's information was entered into a reminder system with a target due date for their next mammogram. Dictated By: Gabrielle Bautista MD Signed By: <Electronically signed by Gabrielle Bautista MD in OV> 06/29/23 0612 DD/ 1145 TD/TT: Press Manager: us Nirali Bowser ANP IMG BI PROCEDURES Final Result * Albumin, Random Urine W/Creatinine (12/02/2022 1:16 PM EDT) Creatinine, Urine 237.44 mg/dL [facility] Microalbumin Urine 30.0 mg/L [facility] Microalbum Creatinine Ratio Ur 12.6 <30 ug/mg cr [facility] Comment:Albumin/Creatinine R atio Reference Ranges: Normal: < 30 ug/mg creatinine Microalbuminuria: 30 - 300 ug/mg creatinineClinical Albuminuria: > 300 ug/mg creatinine Urine 12/02/2022 1:16 PM EDT 12/02/2022 3:56 PM EDT Nirali [facility] URINE ORDERABLES Final Resul t [facility] [address] [place] [phone] * Hm Colonoscopy (10/29/2021) Colonoscopy Normal Normal Narrative Татьяна Thomason - 10/29/2021 Recommended repeat colonoscopy in 2 years poor prep Historical Provider HEALTH MAINTENANCE Edited Result - Final * HEPATITIS C AB W/REFL TO HCV RNA, QN, PCR (06/25/2020 12:08 PM EDT) HEPATITIS C ANTIBODY NON-REACT CANDE NON-REACT CANDE [facility] INDEX 0.02 <1.00 [facility] Comment: ?? HCV antibody was non-reactive. There is no laboratory ?? evidence of HCV infection. ?? In most cases, no further action is required. However, if recent HCV exposure is suspected, a test for HCV RNA (test code 27567) is suggested. ?? For additional information please refer to http://education.appCREAR/faq/YUQ59d8 (This link is being provided for informational/ educational purposes only.) ?? 06/25/2020 12:0 8 PM EDT us Jose Villa MD HISTORICAL/NON ORDERABLE LABS Fi nal Result [facility] [address] [place] [address], from Last 3 Months or Most Recently Relevant to Health Maintenance Insurance [facility] - [facility] Care Teams Rn Patient Care Relationship Specialty Start Date End Date Nirali Bowser ANP [address] [place] [phone] PCP - General Family Medicine 05/05/22
--- OUTSIDE RECORDS SUMMARY | 2024-06-18 13:17 | XMS_ITS | Encounter Summary ---
Author Organization [employer] Address [address] [facility] 7t [place] [address] Care Team Providers Care Office Services Manager Name Role Phone Anna Singh Primary Care Provider Reason for Visit * Reason Onset Date Comments Medication Question 11/18/2022 Encounter Details Date Type Department Care Team ([facility] st Contact Info) Description 11/18/2022 Telephone [facility] MEDICINE [address] [place], [place] [phone] Anna Singh ANP [address] [place], [place] [phone] Medication Question Social History Tobacco Use Types Packs/Day Years Used Date Smoking Tobacco: Never Smokeless Tobacco: Never Alcohol Use Standard Drinks/Week Comments Never 0 (1 standard drink = 0.6 oz pur e alcohol) Depression Answer Date Recorded Patient Health Questionnaire-9 Score 14 08/19/2022 Depression Answer Date Recorded Patient Health Questionnaire-2 Score 5 08/19/2022 Comments Unknown Sex and Gender Information Value Date Recorded Sex Assigned at Female 01/17/2022 10:16 AM EDT Legal Sex Female 10:16 AM EDT Gender Identity Female 01/17/2022 10:16 AM EDT Sexual Orientation Straight 01/17/2022 10 :16 AM EDT documented as of this encounter Miscellaneous Notes * Telephone Encounter - Katherine Marx - 11/18/2022 12:45 PM EDT Michael Menjivar from [facility] calling to inform script that was sent for Alcohol Swabs pads needsdirections. documented in this encounter Plan of Treatment Upcoming Encounters Date Type Department Care Team (Late st Contact Info) Description 06/21/2024 1:30 PM EDT Office Visit [facility] MEDICINE [address] [place] [address] Anna Singh ANP [address] [place] [address] 06/25/2024 3:15 PM EDT Office Visit [facility] MEDICINE [address] [place] [address] Radha Quiroz CNM [address] [place] [address] 07/05/2024 10:00 AM EDT Office Visit [facility] ADULT DENTAL [address] [place] [address] Lise Rogers [address] [place] [address] documented as of this encounter Visit Diagnoses Not on filedocumented in this encounter Additional Health Concerns Assessment Noted Time PHQ-9 Depression Total Score: 14 023 2:33 PM EDT documented as of this encounter Care Teams Office Services Manager Relationship Specialty Start Date End Date Anna Singh ANP [address] [place] [id number] PCP - General Family Medicine 05/05/22 documented as of this encounter
--- OUTSIDE RECORDS SUMMARY | 2024-06-18 13:17 | XMS_ITS | Encounter Summary ---
Author Organization [employer] [facility] Address [address] [facility] 7t [place] [address] Care Team Providers Care Regulatory Affairs Analyst Name Role Phone Rachana Jaurez MD Primary Care Provider Trish Marion Primary Care Provider [phone] Anna Singh Primary Care Provider [phone] Encounter Details Date Type Department Care Team (Latest Contact Info) Description 01/05/2021 Abstract [facility] CONVERSIONS Dental, Provider, DDS Social History Tobacco Use Types Packs/Day Years Used Date Smoking Tobacco: Never Assessed Comments Unknown Sex and Gender Information Value Date Recorded Sex Assigned at Female 01/17/2022 10:16 AM EDT Legal Sex Female 10:16 AM EDT Gender Identity Female 01/17/2022 10:16 AM EDT Sexual Orientation Straight 01/17/2022 10 :16 AM EDT documented as of this encounter Plan of Treatment Upcoming Encounters Date Type Department Care Team (Late st Contact Info) Description 06/21/2024 1:30 PM EDT Office Visit [facility] MEDICINE [address] [place] [address] Anna Singh ANP [address] [place] [address] 06/25/2024 3:15 PM EDT Office Visit [facility] MEDICINE [address] [place] [address] Radha Quiroz CNM [address] [place] [address] 07/05/2024 10:00 AM EDT Office Visit [facility]ULT [facility] [address] [place] [address] Lise Rogers [address] [place], [place] [phone] documented as of this encounter Visit Diagnoses Not on filedocumented in this encounter Care Teams Regulatory Affairs Analyst Relationship Specialty Start Date End Date Rachana Juarez MD PCP - General Family Medicine 01/07/19 03/30/22 Trish Constantino FNP [address] [place] [address] PCP - General Family Medicine 03/31/22 05/04/22 Anna Singh ANP [address] [place] [address] PCP - General Family Medicine 05/05/22 documented as of this encounter
--- OUTSIDE RECORDS SUMMARY | 2024-06-18 13:17 | XMS_ITS | Encounter Summary ---
Author Organization [employer] [facility] Address [address] [facility] 7t [place] [address] Care Team Providers Care Game Design Instructor Name Role Phone Rachana Juarez MD Primary Care Provider Trish Marion Primary Care Provider [phone] Anna Singh Primary Care Provider [phone] Encounter Details Date Type Department Care Team (Latest Contact Info) Description 05/15/[address] [facility] CONVERSIONS Dental, Provider, DDS Social History Tobacco [...] Description 06/21/2024 1:30 PM EDT Office Visit [facility] MEDICINE [address] [place] [address] Anna Singh ANP [address] [place] [address] 06/25/2024 3:15 PM EDT Office Visit [facility] MEDICINE [address] [place] [address] Radha Quiroz CNM [address] [place] [address] 07/05/2024 10:00 AM EDT Office Visit [facility] ADULT DENTAL [address] [place] [address] [place] [address] Lise Rogers [address] [place] [address] documented as of this encounter Visit Diagnoses Not on filedocumented in this encounter Care Teams Game Design Instructor Relationship Specialty Start Date End Date Rachana Juarez MD PCP - General Family Medicine 01/07/19 03/30/22 Trish Constantino FNP [address] [place] [address] PCP - General Family Medicine 03/31/22 05/04/22 Anna Singh ANP [address] [place] [address] PCP - General Family Medicine 05/05/22 documented as of this encounter
--- OUTSIDE RECORDS SUMMARY | 2024-06-18 13:17 | XMS_ITS | Encounter Summary ---
Author Organization [employer] Address [address] [facility] 7[address] [place] [address] Care Team Providers Care Ship Captain Name Role Phone Anna Singh Primary Care Provider [phone] Reason for Visit * Reason Onset Date Comments Med Refill 01/17/2023 Encounter Details Date Type Department Care Team (Late st Contact Info) Description 01/17/2023 Telephone [facility] MEDICINE [address] [place], [place] [phone] Anna Singh ANP [address] [place], [place] [phone] Med Refill Social History Tobacco Use Types Packs/Day Years Used Date Smoking Tobacco: Never Smokeless Tobacco: Never Alcohol Use Standard Drinks/Week Comments Never 0 (1 standard drink = 0.6 oz pur e alcohol) Depression Answer Date Recorded Patient Health Questionnaire-9 Score 14 08/19/2022 Housing Stability Answer Date Recorded What is your housing situation today? I have cipriano ramires 01/17/[address] you li ve. Do you have problems with any of the following? None of the above 01/17/2023 Food Insecurity Answer Date Recorded Within the past 12 months, y ou worried that your food would run out before you got money to buy more: Never True 01/17/2023 Within the past 12 months,th e food you bought just didn't last and you didn't have enough money to get more: Never True Transportation Answer Date Recorded In the past 12 months, has l ack of transportation kept you from medical appts, meetings, work or from getting things needed for daily living? No 01/17/2023 Utilities Answer Date Recorded In the past 12 months, has t he electric, gas, oil or water company threatened to shut off services in your home? No 01/17/2023 Depression Answer Date Recorded Patient Health Questionnaire-2 Score 5 08/19/2022 Comments Unknown Sex and Gender Information Value Date Recorded Sex Assigned at Female 01/17/2022 10:16 AM EDT Legal Sex Female 10:16 AM EDT Gender Identity Female 01/17/2022 10:16 AM EDT Sexual Orientation Straight 01/17/2022 10 :16 AM EDT documented as of this encounter Miscellaneous Notes * Telephone Encounter - Hailey Cordero LPN - 01/17/2023 3:59 PM EDT 90 day supply was sent to [facility] on 11/18/22. * Telephone Encounter - Weston Jefferson - 01/17/2023 3:55 PM EDT Tc from patient requesting medication refill for lisinopril 2.5 MG tablet. documented in this encounter Plan of Treatment Upcoming Encounters Date Type Department Care Team (Late st Contact Info) Description 06/21/2024 1:30 PM EDT Office Visit [facility] MEDICINE [address] [place] [address] Anna Singh ANP [address] [place] [address] 06/25/2024 3:15 PM EDT Office Visit [facility] MEDICINE [address] [place] [address] Radha Quiroz CNM [address] [place] [address] 07/05/2024 10:00 AM EDT Office Visit [facility] ADULT DENTAL [address] [place] [address] Lise Rogers [address] [place] [address] documented as of this encounter Visit Diagnoses Not on filedocumented in this encounter Additional Health Concerns Assessment Noted Time PHQ-9 Depression Total Score: 14 023 2:33 PM EDT documented as of this encounter Care Teams Ship Captain Relationship Specialty Start Date End Date Anna Singh ANP [address] [place] [address] PCP - General Family Medicine 05/05/22 documented as of this encounter
== END 2024-06-18 11:02 | disposition home or self-care (01) ==
LOC: HO.MAMMO 11:01
PROVIDERS: PCP Nurse Practitioner Primary Care; Visit Provider Nurse Practitioner Primary Care
DX: Z12.31 Encounter for screening mammogram for malignant neoplasm of breast (principal)
CPT/HCPCS: 77063; 77067

== ENCOUNTER → 2024-06-18 11:30 | Outpatient (BNV) | payer OTHER, SELFPAY | PROVIDERS: PCP Nurse Practitioner Primary Care; Visit Provider Internal Medicine | DX: Z12.31 Encounter for screening mammogram for malignant neoplasm of breast (principal) | CPT/HCPCS: 77063; 77067 ==

== ENCOUNTER 2024-06-20 13:19 | Outpatient (AMB) | payer OTHER, SELFPAY ==
[2024-06-20 13:23] VITALS: BP 138/92; PULSE 69; BMI 31.9
--- NOTE | 2024-06-20 13:23 | A.OFFVIS_ITS ---
Vital Signs 06/20/24 13:23 Height 4 ft 11 in Weight 157 lb 13.616 oz BMI 31.9 BP 138/92 H Blood Pressure Location Lt brachial Position Sitting Pulse 69 Intake Visit Reasons: s/p colonoscopy (02/05/24) Intake Note: Patient in office today in follow up s/p colonoscopy. CC: Patient states she has been doing well and denies having any new GI symptoms. Mushroom Growing Supervisor Required: Yes Accompanied by: Self / Same As Patient Allergies No Known Allergies Allergy (Verified 06/20/24 13:25) HPI HPI s/p colonoscopy (02/05/24): Details: Assessment & Plan (1) Pre-op examination: Code(s): Z01.818 - Encounter for other preprocedural examination (2) Tubular adenoma of colon: Comment: 10/2021=w large sessile repeat 2 years Code(s): D12.6 - Benign neoplasm of colon, unspecified (3) GERD (gastroesophageal reflux disease): Code(s): K21.9 - Gastro-esophageal reflux disease without esophagitis (4) Abdominal cramping: Code(s): R10.9 - Unspecified abdominal pain Plan Danish #[id number] THE SHE WILL BE DUE FOR REPEAT COLONOSCOPY IN 2023 BECAUSE OF VERY LARGE COLON POLYPS DISCOVERED IN 2021. She is also no longer using the bentyl as she has not needed it. I will d/c it. She is agreeable to having the colonoscopy ordered today. I have asked her to go for lab work. Her only new health problems are high cholesterol and some allergic rhinitis. She denies any cardiac or respiratory problems. No Id problems She had very large TA's in 2021. Orders: Orders Colonoscopy - GI Use Only Today D12.6 - Benign neoplasm of colon, unspecified, Z01.818 - Encounter for other preprocedural examination Comprehensive Met. Panel Today D12.6 - Benign neoplasm of colon, unspecified, Z01.818 - Encounter for other preprocedural examination Medications: New bisacodyl (Dulcolax (bisacodyl)) 10 mg (2 x 5 mg) PO BEDTIME 2 days 4 tabs 0RF Refilled dicyclomine 10 mg PO TID 90 caps 3RF R10.13 - Epigastric pain Colonoscopy Findings: Terminal Ileum: Not evaluated Cecum: Prominent distal lip of ICV - biopsies were obtained to rule out adenomatous change Ascending Colon: Normal Transverse Colon: A 4-5 mm sessile polyp - removed with a cold biopsy Descending Colon: Normal Sigmoid Colon: A 5-6 mm sessile polyp - removed with a cold snare and polyp was not retrieved. Moderate diverticulosis Rectum: Normal Ano-rectum: Moderate internal hemorrhoids Impression and Post Procedure Diagnosis: Colonoscopy Findings: Two small polyps were removed Prominent distal lip of ICV - biopsies were obtained to rule out adenomatous change Moderate diverticulosis seen in the sigmoid [left] [entire] colon Moderate hemorrhoids on retroflexed exam. Plan: Pt has a FU appointment on 02/20/24 with Radha Kang NP. Repeat Colonoscopy in 3 years if polyps are adenomatous and due to a hx of multiple colon polyps on past colonoscopy. If biopsies from ICV show adenomatous change, repeat colon in 6 months. Above findings were reviewed with the patient and relevant handouts were given and the discharge area. BIOPSIES SHOWED: A. Ileocecal valve, biopsy: Ileocolonic mucosa with focally active inflammation. B. Colon, transverse, polypectomy: Tubular adenoma; negative for high-grade dysplasia or carcinoma. Letter sent advising repeat colon in 3 years. TODAY'S VISIT Danish #[employer] She is agreeable to a 3 year follow-up. The procedure was well tolerated. The results were explained and the patient is agreeable to the follow-up interval as stated. The bowel pattern has returned to normal. Education was provided to tell any 1st degree relatives about their findings to be sure that they are screened by age 45. Educated that they will be put on a recall list when it is time for their repeat scope but should they move out of state or away from the hospital they will need to remember along with their primary to repeat the procedure in a timely fashion to avoid any adverse complications. [facility] Medical History (Updated 06/20/24 @ 15:50 by WATSON Kearney) Rosacea History of positive PPD Diabetes HTN (hypertension) Surgical History (Updated 06/20/24 @ 13:28 by ANNETTE Mullen) H/O colonoscopy Social History Household Members: Spouse Are you a primary hearing care professional to a significant other at home: No Do you presently have visiting nurse or other home services: No Alcohol intake: current Alcohol intake frequency: does not drink Patient Tobacco Use Status: Never used Tobacco Review of Systems Const Denies fatigue, Denies fever(s), Denies night sweats, Denies poor appetite and Denies weight loss ENT Denies dental pain, Denies dysphagia, Denies hearing loss, Denies mouth pain, Denies odynophagia, Denies throat swelling, Denies tongue swelling and Reports other (Dentition adequate) Card Reports no additional complaints Resp Reports no additional complaints GI Details: Denies abdominal pain, Denies melena, Denies bloating, Denies hematochezia, Denies constipation, Denies GI cramping, Denies dysphagia, Denies excessive f latus, Denies early satiety, Denies heartburn, Denies diarrhea, Denies nausea, Denies odynophagia, Denies vomiting and Denies hematemesis Skin/Breast Denies pruritus, Denies lesions, Denies rash and Denies jaundice Endo Denies fatigue Aller/Immun Denies throat swelling and Denies tongue swelling Physical Exam Vital Signs: Last Vital Signs Pulse 69 06/20/24 13:23 BP 138/92 H 06/20/24 13:23 BMI result Body Mass Index 31.9 Const General: cooperative and healthy appearing Nutritional Appearance: obese Assessment & Plan Assessment & Plan (1) Tubular adenoma of colon: Comment: 06/2024= 1 small TA repeat in 5 years; 10/2021=w large sessile repeat 2 years Code(s): D12.6 - Benign neoplasm of colon, unspecified Category: Medical Plan Danish #[employer] She is agreeable to a 3 year follow-up. The procedure was well tolerated. The results were explained and the patient is agreeable to the follow-up interval as stated. The bowel pattern has returned to normal. Education was provided to tell any 1st degree relatives about their findings to be sure that they are screened by age 45. Educated that they will be put on a recall list when it is time for their repeat scope but should they move out of state or away from the hospital they will need to remember along with their primary to repeat the procedure in a timely fashion to avoid any adverse complications. Medications: Discontinued dicyclomine Discontinued Reason: Doctor's Order 10 mg PO TID 90 caps 3RF R10.13 - Epigastric pain Coding Level of Care Code Est Pt Level 3 (74376) Diagnoses Tubular adenoma of colon D12.6
--- OUTSIDE RECORDS SUMMARY | 2024-06-20 14:32 | XMS_ITS | Clinical Summary ---
Author Organization [email or web address] Address [address] [facility] 7t [place] [address] Care Team Providers Care Stevedore Dock Name Role Phone Nirali Bowser Primary Care Provider [phone] Allergies Active Allergy Reactions Criticality Noted Date Comments Cetirizine Headache,Anxiety Low 05/24/2019 Pravastatin Other Low 03/02/2023 Change in taste Medications Blood Glucose Monitoring Suppl (FreeStyle Lite) w/Device kit 2 Active Calcium Carb-Cholecalcif maria g 600-10 MG-MCG tablet Take 1 capsule by mouth in the morning. 7 Active FreeStyle lancetsIndicatio ns:Hypertension associated with diabetes (CMS/HCC) 1 each by Other route 2 times daily. 100 each 3 Active FREESTYLE LITE test stripIndications :Hypertension associated with diabetes (CMS/HCC) Twice daily as needed 100 each 3 Active Alcohol Swabs padsIndications: Type 2 diabetes mellitus with hyperglycemia, without long-term current use of insulin ([facility]) 1 each if needed (to clean skin). 100 each 3 Active glucose blood test stripIndications :Type 2 diabetes mellitus with hyperglycemia, without long-term current use of insulin ([facility]) 1 each by Other route 2 times daily. 100 each 12 3 Active Blood Glucose Monitoring Suppl (FreeStyle [place] Lite) w/Device kitIndications:T ype 2 diabetes mellitus with hyperglycemia, without long-term current use of insulin ([facility]) Use to test blood sugar 3 times [...] Department Care Team Description 06/11/2024 Patient Outreach [facility] [address] [place] [address] Nirali Bowser ANP Pre-visit Planning (SDOH Screening negative and Tobacco screening negative) 04/30/2024 Refill [facility] [address] Nirali Bowser ANP Type 2 diabetes mellitus with hyperglycemia, without long-term current use of insulin ([facility]) 04/24/2024 Travel 04/22/2024 Telephone [facility] [address] Rema Russ MA June recall 03/26/2024 2:00 PM EST Office Visit [facility] [place] [address] Nirali Bowser ANP Hypertension associated with diabetes (CMS/HCC) (Primary Dx); Non-seasonal allergic rhinitis due to other allergic trigger 03/26/2024 Travel 03/25/2024 Telephone [facility] [place] [address] Kylee Joseph MA chart prep 03/25/2024 Telephone [facility] [place] [address] Kylee Joseph MA from Last 3 Months [...] Description 06/21/2024 1:30 PM EDT Office Visit [facility] [address] [place] [address] Nirali Bowser ANP [address] [place] [address] 06/25/2024 3:15 PM EDT Office Visit [facility] [address] [place] [address] Gabriela Noriega CNM [address] [place] [address] 07/05/2024 10:00 AM EDT Office Visit [facility] ADULT DENTAL [address] [place] [address] Lise Rogers [address] [place] [address] Health Maintenance Due Date Last Done Comments [...] ,026 Blood 03/26/2024 2:10 PM EST N[facility]i [facility] POINT OF CARE TEST ENTER/EDIT OR DERABLES [...] 10:57 AM EDT) Triglycerides 198(H) <150 mg/dL [facility] Comment:Desirable Triglyceri de: less than 150 mg/dLBorderline High Triglyceride 150-199 mg/dLHigh Triglyceride: 200-499 mg/dLVery High Triglyceride: greater than or equal to 5OO mg/dL Cholesterol 222(H) <200 mg/dL [facility] Comment:Desirable Cholestero l: less than 200 mg/dLBorderline High Cholesterol: 200-239 mg/dLHigh Cholesterol: greater than 239 mg/dL LDL Cholesterol Calculated 133(H) <100 mg/dL [facility] Comment:Desirable LDL: less than 100 mg/dLNear Optimal/Above Optimal LDL: 110- 129 mg/dLBorderline High LDL: 130-159 mg/dLHigh LDL: 160-189 mg/dLVery High LDL: greater than or equal to 190 mg/dL HDL Cholesterol 50 >40 mg/dL [facility] Comment:Desirable HDL: great er than 40 mg/dL Note: This HDL assay may give artificially low results in patients with liver disease. Blood Venous blood specimen / Unknown 09/07/2023 10:57 AM EDT 09/07/2023 11:28 AM EDT Nirali Bowser [facility] BLOOD ORDERABLES Final Resul t [facility] [address] [place] [phone] * HPV mRNA E6/E7 w/Reflex to HPV Genotypes 16, 18/45 (06/26/2023 1:05 PM EDT) HPV nRNA E6/E7 Not Detected Not Detected [facility] Comment:Methodology: Transcr iption-Mediated AmplificationThis assay detects E6/E7 viral messenger RNA (mRNA) from 14high-risk HPV types (16,18,31,33,35,39,45,51,52,56,58,59,66,68).Cervical sources are required for HPV testing.If a vaginal source from a patient who has had atotal hysterectomy with removal of cervix wassubmitted, please contact the testing laboratoryfor alternative testing options.For additional information, please refer tohttp://education.Droid system master/faq/WOF028m4(This link if provided for information/educational purposes only.)THIS TEST WAS PERFORMED AT:[facility] [employer] [place] [phone] GONZALEZ MD HPV mRNA E6/E7 TNP [facility] HPV 16 RNA [facility] HPV 18/45 RNA [facility] 06/26/2023 1:05 PM EDT 06/27/2023 2:00 PM EDT Gabriela Noriega [facility] CYTOLOGY ORDERABLES F inal Result [facility] [address] [place] [phone] [phone] * Pap Smear (06/26/2023 1:05 PM EDT) Swab Cervix uteri structure / Unknown 06/26/2023 1:05 PM EDT 06/27/2023 2:00 PM EDT Narrative [facility] - 07/10/2023 10:51 AM EDT ----- ------- Name: Sherry Ferguson I ?Age/Sex: 57/F ? : 1965 Unit#: [id number] ?? Attend Dr: NIRALI BOWSER NP ?Re06/26/23 ?Status: DEP REF ? Location: HO.HHCL ? Disch: ? ----- ------- SPEC : [id number] ? RECD: 06/27/23-1400 ? STATUS: ??SOUT ? REQ NUM: [id number] ? ZE: 06/26/23-1305 ? SUBM DR: GABRIELA NORIEGA CNM ? ENTERED: ??06/27/23-6206 ?SP TYPE: Pap Smr ?OTHR DR: ? ORDERED: ??Pap Smear ? Interpretation ?? Satisfactory for evaluation. ?? Negative for intraepithelial lesion or malignancy. ?HPV mRNA E6/E7: ?NOT DETECTED ? This assay detects E6/E7 viral messenger RNA (mRNA) from 14 high-risk HPV types (16, 18, ?? 31, 33, 35, 39, 45, 51, 52, 56, 58, 59, 66, 68) ?? HPV testing performed by [employer], [place], [place]. ??See reference laboratory ?? portion of the EMR for entire report. ?Clinical Information LMP: Postmenopausal Previous PAP test: 2019, WNL ? Material Received ?? ThinPrep-Vaginal/Cervical ----- ------- Signed (signature on file) LATOYA Curran (ASCP) 07/10/23 1051 ? ----- ------- ? END OF REPORT ? us Gabriela Noriega [facility] CYTOLOGY ORDERABLES F inal Result [facility] [address] [place] [phone] * BI Mammogram Screening Tomosynthesis Bilateral (06/13/2023 11:45 AM EDT) Anatomical Region Laterality Modality Breast Bilateral Mammography 06/13/2023 11:4 5 AM EDT Narrative 06/29/2023 6:16 AM EDT ? [facility] ? [address] ?[place] [address] ? Mammography Report ? Signed ? Patient: Marty,Sherry I ?MR#: [id number] ?? 6 ? : 1965 ?Acct:[id number] ? Age/Sex: 57 / F ?ADM Date: 06/13/23 ? Loc: HO.MAMMO ? Attending Dr: Nirali Bowser [employer] ? Ordering Physician: NIRALI BOWSER NP ?Results: 1Negative ? Date of Service: 06/13/23 ?Follow Up: 1 Year From Orig ?? inal Mammogram ? Procedure(s): MM tomosynthesis screening BI ?? Accession Number(s): [id number] ? cc: NIELS,NIRALI MORALES ? EXAMINATION: ?? [...] 06/29/23611 ? DD/ 1145 ? TD/TT: ? Silvering Applicator: ? Procedure Note Jennifer Alba - 06/29/2023 [place] [facility] [address] [place] [address] Mammography Report Signed Patient: Sherry Ferguson IMR#: [id number] 6 : 1965Acct:[id number] Age/Sex: 57 / FADM Date: 06/13/23 Loc: HO.MAMMO Attending Dr: Nirali Bowser NP Ordering Physician: NIRALI BOWSER NPResults: 1Negative Date of Service: 06/13/23Follow Up: 1 Year From Orig inal Mammogram Procedure(s): MM tomosynthesis screening BI Accession Number(s): [id number] cc: NIRALI BOWSER NP EXAMINATION: MM SCREENING [...] in OV> 06/29/23 0612 DD/ 1145 TD/TT: Silvering Applicator: us Nirali Bowser ANP IMG BI PROCEDURES Final Result * Albumin, Random Urine W/Creatinine (12/02/2022 1:16 PM EDT) Creatinine, Urine 237.44 mg/dL [facility] Microalbumin Urine 30.0 mg/L [facility] Microalbum Creatinine Ratio Ur 12.6 <30 ug/mg cr [facility] Comment:Albumin/Creatinine R atio Reference Ranges: Normal: < 30 ug/mg creatinine Microalbuminuria: 30 - 300 ug/mg creatinineClinical Albuminuria: > 300 ug/mg creatinine Urine 12/02/2022 1:16 PM EDT 12/02/2022 3:56 PM EDT Nirali [facility] LAB URINE ORDERABLES Final Resul t [facility] [address] [place] [address] [phone] * Hm Colonoscopy (10/29/2021) Colonoscopy Normal Normal Narrative Татьяна [place] - 10/29/2021 Recommended repeat colonoscopy in 2 years poor prep Historical Provider HEALTH MAINTENANCE Edited Result - Final * HEPATITIS C AB W/REFL TO HCV RNA, QN, PCR (06/25/2020 12:08 PM EDT) HEPATITIS C ANTIBODY NON-REACT CANDE NON-REACT CANDE [facility] INDEX 0.02 <1.00 [facility] Comment: ?? HCV antibody was non-reactive. There is no laboratory ?? evidence of HCV infection. ?? In most cases, no further action is required. However, if recent HCV exposure is suspected, a test for HCV RNA (test code 64617) is suggested. ?? For additional information please refer to http://education.Droid system master/faq/QAY38g0 (This link is being provided for informational/ educational purposes only.) ?? 06/25/2020 12:0 8 PM EDT us Jose Villa MD HISTORICAL/NON ORDERABLE LABS Fi nal Result [facility] [address] [place] [address], from Last 3 Months or Most Recently Relevant to Health Maintenance Insurance [facility] CARE D[facility] - [facility] Care Teams Stevedore Dock Relationship Specialty Start Date End Date Nirali Bowser ANP [address] [place] [phone] PCP - General Family Medicine 05/05/22
--- OUTSIDE RECORDS SUMMARY | 2024-06-20 14:32 | XMS_ITS | Encounter Summary ---
Author Organization [employer] Address [address] [facility] 7t [place] [address] Care Team Providers Care Locomotive Operator Name Role Phone Anna Singh Primary Care Provider [phone] Reason for Visit * Reason Onset Date Comments Med Refill 01/17/2023 Encounter Details Date Type Department Care Team (Late st Contact Info) Description 01/17/2023 Telephone [facility] [address] [place], [place] [phone] Anna Singh ANP [address] [place], [place] [phone] Med Refill Social History Tobacco Use Types [...] Description 06/21/2024 1:30 PM EDT Office Visit [facility] [address] [place] [address] Anna Singh ANP [address] [place] [address] 06/25/2024 3:15 PM EDT Office Visit [facility] [address] [place] [address] Radha Quiroz CNM [address] [place] [address] 07/05/2024 10:00 AM EDT Office Visit [facility] ADULT DENT[facility] [address] [place] [address] Lise Rogers [address] [place] [address] documented as of this encounter Visit Diagnoses Not on filedocumented in this encounter Additional Health Concerns Assessment Noted Time PHQ-9 Depression Total Score: 14 023 2:33 PM EDT documented as of this encounter Care Teams Locomotive Operator Relationship Specialty Start Date End Date Anna Singh ANP [address] [place] [address] PCP - General Family Medicine 05/05/22 documented as of this encounter
--- OUTSIDE RECORDS SUMMARY | 2024-06-20 14:32 | XMS_ITS | Encounter Summary ---
Author Organization [employer] [facility] Address [address] [facility] 7t [place] [address] Care Team Providers Care Utility Worker [place] Name Role Phone Rachana Juarez MD Primary Care Provider Trish Marion Primary Care Provider [phone] Anna Singh Primary Care Provider [phone] Encounter Details Date Type Department Care Team (Latest Contact Info) Description 01/05/2021 Abstract [facility] CONVERSIONS Dental, Provider, DDS Social History [...] Description 06/21/2024 1:30 PM EDT Office Visit [facility] [address] [place] [address] Anna Singh ANP [address] [place] [address] 06/25/2024 3:15 PM EDT Office Visit [facility] [address] [place] [address] Radha Quiroz CNM [address] [place] [address] 07/05/2024 10:00 AM EDT Office Visit [facility] [address] [place] [address] Lise Rogers [address] [place], [place] [phone] documented as of this encounter Visit Diagnoses Not on filedocumented in this encounter Care Teams Utility Worker [employer] [place] Relationship Specialty Start Date End Date Rachana Juarez MD PCP - General Family Medicine 01/07/19 03/30/22 Trish Constantino FNP [address] [place] [address] PCP - General Family Medicine 03/31/22 05/04/22 Anna Singh ANP [address] [place] [address] PCP - General Family Medicine 05/05/22 documented as of this encounter
--- OUTSIDE RECORDS SUMMARY | 2024-06-20 14:32 | XMS_ITS | Encounter Summary ---
Author Organization [employer] [facility] Address [address] [facility] 7t [place] [address] Care Team Providers Care Assistant Restaurant General Manager Name Role Phone Rachana Juarez MD Primary Care Provider Trish Marion Primary Care Provider [phone] Anna Singh Primary Care Provider [phone] Encounter Details Date Type Department Care Team (Latest Contact Info) Description 05/15/2018 Abstract [facility] CONVERSIONS Dental, Provider, DDS Social History [...] Description 06/21/2024 1:30 PM EDT Office Visit [facility] [address] [place] [address] Anna Singh ANP [address] [place] [address] 06/25/2024 3:15 PM EDT Office Visit [facility] [address] [place] [address] Radha Quiroz CNM [address] [place] [address] 07/05/2024 10:00 AM EDT Office Visit [facility] ADULT DENTAL [address] [place] [address] [place] [address] Lise Rogers [address] [place] [address] documented as of this encounter Visit Diagnoses Not on filedocumented in this encounter Care Teams Assistant Restaurant General Manager Relationship Specialty Start Date End Date Rachana Juarez MD PCP - General Family Medicine 01/07/19 03/30/22 Trish Constantino FNP [address] [place] [address] PCP - General Family Medicine 03/31/22 05/04/22 Anna Singh ANP [address] [place] [address] PCP - General Family Medicine 05/05/22 documented as of this encounter
--- OUTSIDE RECORDS SUMMARY | 2024-06-20 14:32 | XMS_ITS | Encounter Summary ---
Author Organization [employer] Address [address] [facility] 7t [place] [address] Care Team Providers Care Operating System Programmer Name Role Phone Anna Singh Primary Care Provider [phone] Reason for Visit * Reason Onset Date Comments Medication Question 11/18/2022 Encounter Details Date Type Department Care Team ([facility] st Contact Info) Description 11/18/2022 Telephone [facility] [address] [place], [place] [phone] Anna Singh ANP [address] [place], [place] [phone] Medication Question Social History Tobacco Use Types [...] 11/18/2022 12:45 PM EDT Michael Menjivar from [facility] calling to inform script that was sent for Alcohol Swabs pads needsdirections. documented in this encounter Plan of Treatment Upcoming Encounters Date Type Department Care Team (Late st Contact Info) Description 06/21/2024 1:30 PM EDT Office Visit [facility] [address] [place] [address] Anna Singh ANP [address] [place] [address] 06/25/2024 3:15 PM EDT Office Visit [facility] MED[facility] [address] [place] [address] Radha Quiroz CNM [address] [place] [address] 07/05/2024 10:00 AM EDT Office Visit [facility] ADULT DENTAL [address] [place] [address] Lise Rogers [address] [place] [address] documented as of this encounter Visit Diagnoses Not on filedocumented in this encounter Additional Health Concerns Assessment Noted Time PHQ-9 Depression Total Score: 14 023 2:33 PM EDT documented as of this encounter Care Teams Operating System Programmer Relationship Specialty Start Date End Date Anna Singh ANP [address] [place] [address] PCP - General Family Medicine 05/05/22 documented as of this encounter
== END 2024-06-20 13:46 | disposition home or self-care (01) ==
LOC: HO.HGI 13:19
PROVIDERS: PCP Nurse Practitioner Primary Care; Visit Provider Nurse Practitioner
DX: D12.6 Benign neoplasm of colon, unspecified (principal)
CPT/HCPCS: 99213

== ENCOUNTER → 2024-06-20 13:19 | Outpatient (BNVA) | payer OTHER, SELFPAY | PROVIDERS: PCP Nurse Practitioner Primary Care; Visit Provider Nurse Practitioner | DX: D12.6 Benign neoplasm of colon, unspecified (principal); K21.9 Gastro-esophageal reflux disease without esophagitis | CPT/HCPCS: 99212 ==

== ENCOUNTER 2024-07-31 14:14 | Outpatient (REF) | payer OTHER, SELFPAY ==
--- NOTE | ~2024-07-31 | US_ITS ---
CLINICAL HISTORY: f u fibroids -2023 US pelvis transabdominal Comparison: US/UT/SR - US PELVIC AND TRANSVAGINAL - 07/05/23 12:46 EDT Findings: Transabdominal scanning performed. The patient declined transvaginal evaluation. Markedly limited evaluation of the uterus with poor visualization of the endometrium and poor delineation of uterine fibroids. There is irregularity of the uterine contour Anteverted uterus is 15 cm length. Only 1 of the known uterine fibroids was well-visualized, a 4.3 x 4.6 x 4.6 cm subserosal fibroid arising from the fundus (Previously 5.1 x 4.2 x 6.1 cm). The endometrium was not well visualized. Neither ovary was visualized. No free fluid. IMPRESSION: 1. Fibroid uterus. This document has been electronically signed by: Keily Montelongo MD on 07/31/2024 16:20:10
--- OUTSIDE RECORDS SUMMARY | 2024-07-31 14:16 | XMS_ITS | Encounter Summary ---
Author Organization [employer] Address [address] [facility] 7t [place] [address] Care Team Providers Care Etl Bi Developer Name Role Phone Anna Singh Primary Care Provider [phone] Reason for Visit * Reason Onset Date Comments Med Refill 01/17/2023 Encounter Details Date Type Department Care Team (Late st Contact Info) Description 01/17/2023 Telephone [facility] [address] [place], [place] [phone] Anna Singh ANP [address] [place], [place] [phone] Med Refill Social History Tobacco Use Types [...] t he electric, gas, oil or water [employer] threatened to shut off services in your [...] Care Team (Late st Contact Info) Description 09/13/2024 2:00 PM EDT Office Visit [facility] ADULT DENTAL [address] [place] [address] Michael Rogersaris [address] [place] [address] 09/26/2024 2:00 PM EDT Office Visit [facility] ADULT DENTAL [address] [place] [address] Ken, Lise [address] [place] [address] 10/24/2024 1:00 PM EDT Office Visit [facility] MEDICINE [address] [place] [address] Anna Singh ANP [address] [place] [address] 01/14/2025 3:00 PM EDT Office Visit [facility] ADULT DENTAL [address] [place] [address] Lise Rogers [address] [place], [place] [phone] documented as of this encounter Visit Diagnoses Not on filedocumented in this encounter Additional Health Concerns Assessment Noted Time PHQ-9 Depression Total Score: 14 023 2:33 PM EDT documented as of this encounter Care Teams Etl Bi Developer Relationship Specialty Start Date End Date Anna Singh ANP [address] [place] [address] PCP - General Family Medicine 05/05/22 documented as of this encounter
--- OUTSIDE RECORDS SUMMARY | 2024-07-31 14:16 | XMS_ITS | Encounter Summary ---
Author Organization [employer] Address [address] [facility] 7t [place] [address] Care Team Providers Care Receptionist Doctor'S Office Name Role Phone Anna Singh Primary Care Provider Reason for Visit * Reason Onset Date Comments Medication Question 11/18/2022 Encounter Details Date Type Department Care Team ([facility] Contact Info) Description 11/18/2022 Telephone [facility] MEDICINE [address] [place], [place] [phone] Anna Singh ANP [address] [place] [address] Medication Question Social History Tobacco Use Types [...] 11/18/2022 12:45 PM EDT Michael Menjivar from [facility] calling to inform script that was sent for Alcohol Swabs pads needsdirections. documented in this encounter Plan of Treatment Upcoming Encounters Date Type Department Care Team ([facility] st Contact Info) Description 09/13/2024 2:00 PM EDT Office Visit [facility] ADULT [facility]AL [address] [facility] [place] [address] Lise Rogers [address] [facility] [address] 09/26/2024 2:00 PM EDT Office Visit [facility] ADULT D[facility] [address] [facility] [place] [address] Lise Rogers [address] [place] [address] 10/24/2024 1:00 PM EDT Office Visit [facility] MED[facility] [address] [facility] [place] [address] Anna Singh ANP [address] [facility] [address] 01/14/2025 3:00 PM EDT Office Visit [facility] ADULT DENT[facility] [address] [facility] [place] [address] Lise Rogers [address] [place], [place] [address] documented as of this encounter Visit Diagnoses Not on filedocumented in this encounter Additional Health Concerns Assessment Noted Time PHQ-9 Depression Total Score: 14 023 2:33 PM EDT documented as of this encounter Care Teams Receptionist Doctor'S Office Relationship Specialty Start Date End Date Anna Singh ANP [facility] [place] [address] PCP - General Family Medicine 05/05/22 documented as of this encounter
--- OUTSIDE RECORDS SUMMARY | 2024-07-31 14:16 | XMS_ITS | Encounter Summary ---
Author Organization [employer] Address [address] [facility] 7t [place] [address] Care Team Providers Care Green Feed Attendant Name Role Phone Anna Singh Primary Care Provider [phone] Encounter Details Date Type Department Care Team (Late st Contact Info) Description 07/31/2024 Orders Only [facility] [address] [place], [place] [phone] Anna Singh ANP [address] [place], [place] [phone] Type 2 diabetes mellitus with hyperglycemia, without long-term current use of insulin ([facility]) Social History Tobacco Use Types Packs/Day Years Used Date Smoking Tobacco: Never Passive Smoke Exposure: Never Smokeless Tobacco: Never Alcohol Use Standard [...] AM EDT documented as of this encounter Progress Notes * LIVIA Zazueta - 07/31/2024 1:42 PM EDT Do recommend increase to lisinopril to 5mg daily. Will send. Happy birthday to pt! documented in this encounter Plan of Treatment Upcoming Encounters Date Type Department Care Team (Late st Contact Info) Description 09/13/2024 2:00 PM EDT Office Visit [facility] ADULT DENTAL [address] [place] [address] [facility] [address] [place] [address] 09/26/2024 2:00 PM EDT Office Visit [facility] ADULT DENTAL [address] [place] [address] Ken Lise [address] [place] [address] 10/24/2024 1:00 PM EDT Office Visit [facility] MED[facility]INE [address] [place] [address] Anna Singh ANP [address] [place] [address] 01/14/2025 3:00 PM EDT Office Visit [facility] ADULT DENTAL [address] [place] [address] Ken, Lise [address] [place] [address] documented as of this encounter Visit Diagnoses Diagnosis Type 2 diabetes mellitus with hyperglycemia, without long-term current use of insulin ([facility]) documented in this encounter Additional Health Concerns Assessment Noted Time PHQ-9 Depression Total Score: 17 024 4:07 PM EDT documented as of this encounter Care Teams Green Feed Attendant Relationship Specialty Start Date End Date Anna Singh ANP [address] [place] [address] PCP - General Family Medicine 05/05/22 documented as of this encounter
--- OUTSIDE RECORDS SUMMARY | 2024-07-31 14:16 | XMS_ITS | Encounter Summary ---
Author Organization [employer] [facility] Address [address] 7[address] [place] [address] Care Team Providers Care Crew Manager Name Role Phone Rachana Juarez MD Primary Care Provider Trish Marion Primary Care Provider [phone] Anna Singh Primary Care Provider [phone] Encounter Details Date Type Department Care Team (Latest Contact Info) Description 01/05/2021 Abstract [facility] CONVERSIONS Dental, Provider, DDS Social [...] Description 09/13/2024 2:00 PM EDT Office Visit [facility] ADULT DENTAL [address] [place] [address] Ken, Lise [address] [place] [address] 09/26/2024 2:00 PM EDT Office Visit [facility] ADULT DENTAL [address] [place] [address] Ken, Lise [address] [place] [address] 10/24/2024 1:00 PM EDT Office Visit [facility] MEDICINE [address] [place] [address] Anna Singh ANP [address] [place] [address] 01/14/2025 3:00 PM EDT Office Visit [facility] ADULT DENTAL [address], [place] [phone] Lise Rogers [address] [place] [address] documented as of this encounter Visit Diagnoses Not on filedocumented in this encounter Care Teams Crew Manager Relationship Specialty Start Date End Date Rachana Juarez MD PCP - General Family Medicine 01/07/19 03/30/22 Trish Constantino FNP [address], [place] [phone] PCP - General Family Medicine 03/31/22 05/04/22 Anna Singh ANP [address] [place] [address] PCP - General Family Medicine 05/05/22 documented as of this encounter
--- OUTSIDE RECORDS SUMMARY | 2024-07-31 14:16 | XMS_ITS | Clinical Summary ---
Author Organization [employer] Address [address] 7[address] [place] [address] Care Team Providers Care Plastic Boat Buffer Name Role Phone Nirali Bowesr Primary Care Provider [phone] Allergies Active Allergy Reactions Criticality Noted Date Comments Cetirizine Headache,Anxiety Low 05/24/2019 Pravastatin Other Low 03/02/2023 Change in taste Medications Blood Glucose Monitoring Suppl (FreeStyle Lite) w/Device kit 10/20/19 22 Active Calcium Carb-Cholecalc iferol 600-10 MG-MCG tablet Take 1 capsule by mouth in the morning. 01/31/20 17 Active FreeStyle lancetsIndicat ions:Hypertens ion associated with diabetes ([facility]/HCC) 1 each by Other route 2 times daily. 100 each 11/19/19 23 Active FREESTYLE LITE test stripIndicatio ns:Hypertensio n associated with diabetes (CMS/HCC) Twice daily as needed 100 each 11/19/19 23 Active Alcohol Swabs padsIndication s:Type 2 diabetes mellitus with hyperglycemia, without long-term current use of insulin ([facility]) 1 each if needed (to clean skin). 100 each 11/19/19 23 Active glucose blood test stripIndicatio ns:Type 2 diabetes mellitus with hyperglycemia, without long-term current use of insulin ([facility]) 1 each by Other route 2 times daily. 100 each 12/01/19 23 Active Blood Glucose Monitoring Suppl (FreeStyle [place] Lite) w/Device kitIndications :Type 2 diabetes mellitus with hyperglycemia, without long-term current use of insulin ([facility]) Use to test blood sugar 3 times daily 1 kit 12/10/19 23 Active simvastatin (Zocor) 10 MG tabletIndicati ons:Type 2 diabetes mellitus with other circulatory complication, without long-term current use of insulin ([facility]) Take 1 tablet (10 mg) by mouth at bedtime. 90 tablet 3 11/22/19 24 025 Active Azelastine-Flu ticasone 137-50 MCG/ACT suspensionIndi cations:Non-se asonal allergic rhinitis due to other allergic trigger Administer 1 spray into affected nostril(s) every 12 (twelve) hours. As needed for allergies/con gestion 23 g 2 03/26/19 25 Active lisinopril 5 MG tabletIndicati ons:Type 2 diabetes mellitus with hyperglycemia, without long-term current use of insulin ([facility]) TAKE 1 TABLET BY MOUTH EVERY MORNING 90 tablet 1 08/01/19 25 Active lisinopril 2.5 MG tabletIndicati ons:Type 2 diabetes mellitus with hyperglycemia, without long-term current use of insulin ([facility]) TAKE 1 TABLET BY MOUTH EVERY MORNING 90 tablet 1 04/30/19 25 025 Discontinued(Re order (will not trigger notification to Pharmacy)) Active Problems Problem Noted Date Diagnosed Date Acute gingival inflammation 07/05/2024 Abfraction 07/05/2024 Dental calculus 12/15/2023 Periodontal disease 12/15/2023 Gingival [...] On statin, ACEi Hypertension associated with diabetes ([facility]) 05/05/2022 Overview (12/23/2022): Current regimen: Lisinopril 2.5mg [...] Encounters Date Type Department Care Team Description 07/31/2024 Orders Only [facility] [address] [place] [address] Nirali Bowser ANP Type 2 diabetes mellitus with hyperglycemia, without long-term current use of insulin ([facility]) 07/22/2024 10:00 AM EDT Telemedicine [facility] [address] [place] [phone] Renea Melara, RN Essential hypertension 07/22/[address] [address] Nirali Bowser ANP [place] recall 07/22/2024 Travel 07/22/[address] [address] Renea Melara, RN Status Check: BP 07/16/2024 3:30 PM EDT Office Visit [address] [address] Gabriela Noriega CNM Visit for pelvic exam (Primary Dx); Fibroids 07/16/2024 Travel 07/05/2024 10:00 AM EDT Office Visit [facility] [address] [place] [phone] Lise Rogers Fractured dental moravian with loss of material (Primary Dx); Periodontal disease; Dental calculus; Gingival bleeding; Acute gingival inflammation; Abfraction 06/21/2024 1:30 PM EDT Office Visit [address] [address] Nirali Bowser ANP Hypertension associated with diabetes ([facility]) 06/21/2024 Travel 06/18/2024 Orders Only [address] [address] Nirali Bowser ANP 06/11/2024 Patient Outreach [address] [address] Nirali Bowser ANP Pre-visit Planning (SDOH Screening negative and Tobacco screening negative) from Last 3 Months Immunizations Immunization Administration Dates Next Due INFLUENZA VACCINE QUADRIVALE NT RECOMBINANT PRESERVATIVE FREE RIV4 12/25/2019 Influenza injectable quadriv alent IIV4 with preservative 01/22/2018 Influenza injectable quadriv alent preservative free 12/19/2022,05/05/2022,01/25/2021,2018 Influenza, IIV3, injectable 01/17/2014, 1 Influenza, Split (incl. mauricio fied surface antigen) 04/09/2013,02/01/2012 Influenza, seasonal, injecta ble, preservative free 01/22/2024 MMR 03/08/2013 Pfizer Covid-19 Vaccine 12+ 08/06/2020, 1 Pneumococcal Conjugate PCV 20 06/21/2024 TD (adult), 2 Lf tetanus tox oid, [...] your housing situation today? I have cipriano ike 06/11/[address] you li [...] Sign Reading Time Taken Comments Blood Pressure 135/90 07/16/2024 3:27 PM EDT Pulse 83 07/16/2024 3:27 PM EDT Temperature 36.5 ??C (97.7 ??F) 07/16/2024 3:27 PM ED T Respiratory Rate 16 07/16/2024 3:27 PM EDT Oxygen Saturation 98% 07/16/2024 3:27 PM EDT Inhaled Oxygen Concentration - - Weight 70.9 kg (156 lb 3.2 oz) 07/16/2024 3:27 P M EDT Height 152.4 cm (5') 07/16/2024 3:27 PM EDT Body Mass Index 30.51 07/16/2024 3:27 PM EDT Plan of Treatment Upcoming Encounters Date Type Department Care Team (Late st Contact Info) Description 09/13/2024 2:00 PM EDT Office Visit [facility] [address] [place] [address] Lise Rogers [address] [place] [address] 09/26/2024 2:00 PM EDT Office Visit [facility] [address] [place] [address] Ken Lise [address] [place] [address] 10/24/2024 1:00 PM EDT Office Visit [facility] [address] [place] [address] Nirali Bowser, ANP [address] [place] [address] 01/14/2025 3:00 PM EDT Office Visit [facility] [address] [place] [address] Lise Rogers [address] [place] [address] Health Maintenance Due Date Last Done Comments CT Colonography 1965 FIT DNA/Cologuard 1965 FIT 1965 FOBT 1965 HIV Screening 1965 Sigmoidoscopy 1965 Eye Exam 1974 Alcohol/Substance Use Screening 1976 Zoster Vaccines (2 of 2) 04/03/2019 02/06/2019 COVID-19 Vaccine ( season) 2023 05/21/2021, 08/06/2020, 07/16/2020 Diabetes: Urine Protein Screening 12/03/2023 12/02/2022, 07/22/2021, 11/27/2020 Lipid Panel 09/06/2024 09/07/2023, 11/18, 11/27/2020 Diabetes: Hemoglobin A1C 09/20/2024 025, 03/26/2024, 11/22/2023, Additional history exists Depression Screening 11/21/2024 11/22/2023, 11/22/19 Dental Oral Exam 01/05/2025 07/05/2024, , 01/05/2021, Additional history exists Dental Prophylaxis 01/05/2025 07/05/2024, 0 12/15/2023, 09/13/2021, Additional history exists SDOH Screening 06/11/2025 06/11/2024 Mammogram 06/18/2025 06/18/2024, 05/19, 06/07/2022, Additional history exists Diabetes: Foot Exam 06/21/2025 06/21/2024, 06/21/2024, 06/21/2024, Additional history exists Dental X-Ray: Bitewings 07/06/2025 07/06/19 25, 10/31/2023, 09/13/2021, Additional history exists Tobacco Screening 07/31/2025 07/31/2024 Colonoscopy 02/01/2027 10/29/2021 Colorectal Cancer Screening 02/01/2027 Dental X-Ray: Full Mouth 07/07/2027 025, 01/05/2021, 10/16/2013, Additional history exists Cervical Cancer Screening 06/25/2028 HPV/Cotest 06/25/2028 06/26/2023, 11/21/2018 Pap Smear 06/25/2028 06/26/2023 DTaP/Tdap/Td Vaccines (3 - Td or Tdap) 04/27/2033 04/27/2023, 04/09/2013, 04/04/2002 RSV Patients and Patients Aged 60 years or older (1 - 1-dose 75+ series) 07/31/2039 Hepatitis C Screening Completed 06/25/2020 Influenza Vaccine Completed 01/22/2024, , 05/05/2022, Additional history exists Pneumococcal Vaccine: 50+ Years Completed 06/21/2024 HIB Vaccines Aged Out No longer eligi ble based on patient's age to complete this topic HPV Vaccines Aged Out No longer eligi ble based on patient's age to complete this topic Hepatitis A Vaccines Aged Out No long er eligible based on patient's age to complete this topic Hepatitis B Vaccines Aged Out No long er eligible based on patient's age to complete this topic IPV Vaccines Aged Out No longer eligi ble based on patient's age to complete this topic Meningococcal B Vaccine Aged Out No l onger eligible based on patient's age to complete [...] Procedure Name Priority Date/Time Associated Diagnosis Comments COMPREHENSIVE PERIODONTAL EVALUATION - NEW OR ESTABLISHED PATIENT Routine 07/05/2024 10:00 AM EDT PERIODIC ORAL EVALUATION - ESTABLISHED PATIENT Routine 07/05/2024 10:00 AM EDT ORAL HYGIENE INSTRUCTIONS Routine 07/05/2024 10:00 AM EDT Fractured dental moravian with loss of material Periodontal disease Dental calculus Gingival bleeding Acute gingival inflammation Abfraction CASE PRESENTATION, DETAILED AND EXTENSIVE TREATMENT PLANNING Routine 07/05/2024 10:00 AM EDT Fractured dental moravian with loss of material Periodontal disease Dental calculus Gingival bleeding Acute gingival inflammation Abfraction PROPHYLAXIS - ADULT Routine 07/05/2024 1 0:00 AM EDT Periodontal disease Dental calculus Gingival bleeding Acute gingival inflammation Abfraction INTRAORAL - COMPLETE SERIES OF RADIOGRAPHIC IMAGES Routine 07/05/2024 10:00 AM EDT Fractured dental moravian with loss of material Periodontal disease Dental calculus Gingival bleeding Acute gingival inflammation Abfraction POCT GLYCATED HEMOGLOBIN, TOTAL Routine 06/21/2024 1:43 PM EDT Hypertension associated with diabetes (CMS/HCC) POCT GLUCOSE Routine 06/21/2024 1:39 PM EDT Hypertension associated with diabetes (CMS/HCC) BI MAMMOGRAM SCREENING TOMOSYNTHESIS BILATERAL Routine 06/18/2024 11:05 AM EDT LIPID PANEL, STANDARD Routine 09/07/2023 10:57 AM EDT Type 2 diabetes mellitus with hyperlipidemia (CMS/HCC) (CMS/HCC) HPV MRNA E6/E7 REFLEX TO HPV 16, 18/45 Routine 06/26/2023 1:05 PM EDT PAP SMEAR Routine 06/26/2023 1:05 PM EDT Cervical cancer screening ALBUMIN, RANDOM URINE W/CREATININE Routine 12/02/2022 1:16 PM EDT Hypertension associated with diabetes (CMS/HCC) HM COLONOSCOPY Routine 10/29/2021 ZZZ HISTORICAL HEPATITIS C AB W/REFL TO HCV RNA, QN, PCR Routine 06/25/2020 12:08 PM EDT from Last 3 Months or Most Recently Relevant to Health Maintenance Results * (ABNORMAL) POCT HGB A1C (06/21/2024 1:43 PM EDT) Hemoglobin A1C 6.7(A) 4.0 - 6.0 % QC Media Lot # [id number] Lot# Expiration Date Blood 06/21/2024 1:43 PM EDT us Nirali BHAKTA POINT OF CARE TEST ENTER/EDIT OR DERABLES Final Result * POCT Glucose (06/21/2024 1:39 PM EDT) Glucose Blood, POC 130 60 - 200 mg/dL QC Media Lot # [id number] Lot# Expiration Date Blood Capillary blood specimen / Unknown 06/21/2024 1:39 PM EDT us Nirali BHAKTA POINT OF CARE TEST ENTER/EDIT OR DERABLES Final Result * BI Mammogram Screening Tomosynthesis Bilateral (06/18/2024 11:05 AM EDT) Anatomical Region Laterality Modality Breast Bilateral Mammography 06/18/2024 11:0 5 AM EDT Narrative 06/23/2024 6:47 PM EDT ? [facility] [place] ? [address] ?[place] [address] ?[phone] ? Mammography Report ? Signed ? Patient: Marty,Sherry I ?MR#: [id number] ?? 6 ? : 1965 ?Acct:[id number] ? Age/Sex: 58 / F ?ADM Date: 06/18/24 ? Loc: HO.MAMMO ? Attending Dr: Nirali Bowser PUBLISHING DIRECTOR ? Ordering Physician: NIRALI BOWSER NP ?Results: 1Negative ? Date of Service: 06/18/24 ?Follow Up: 1 Year From Orig ?? inal Mammogram ? Procedure(s): MM tomosynthesis screening BI ?? Accession Number(s): [id number] ? cc: NIELS,NIRALI MORALES ? EXAMINATION: ?? MM SCREENING DIGITAL BREAST TOMOSYNTHESIS, BILATERAL ? CLINICAL INFORMATION: ? Screening. Asymptomatic. ? COMPARISON: ?? Mammography: Comparison is made with available priors ? TECHNIQUE: ?? Digital breast mammography with tomosynthesis is performed in both the ?? craniocaudal and mediolateral oblique views along with computer-aided ?? detection (CAD). ? FINDINGS: ?? There are scattered areas [...] due date for their next mammogram. ? Electronically signed by: ??Ann-Marie Valdez DO ??06/23/2024 06:44 PM EDT ? Dictated By: ?Ann-Marie Valdez DO ? Signed By: ?<Electronically signed by Ann-Marie Valdez, DO in OV> ? 06/23/24 1844 ? DD/ 1105 ? TD/TT: 06/18/24 1123 ? Databases Software Consultant: ? Procedure Note Anjali, Jennifer - 06/23/2024 [place] [facility] [address] [place] [address] Mammography Report Signed Patient: Sherry Ferguson [facility]#: [id number] 6 : 1965Acct:[id number] Age/Sex: 58 / FADM Date: 06/18/24 Loc: HO.MAMMO Attending Dr: Nirali Bowser PUBLISHING DIRECTOR Ordering Physician: NIRALI BOWSER NPResults: 1Negative Date of Service: 06/18/24Follow Up: 1 Year From Orig inal Mammogram Procedure(s): MM tomosynthesis screening BI Accession Number(s): [id number] cc: NIRALI BOWSER NP EXAMINATION: MM SCREENING DIGITAL BREAST TOMOSYNTHESIS, BILATERAL CLINICAL INFORMATION: Screening. Asymptomatic. COMPARISON: Mammography: Comparison is made with available priors TECHNIQUE: Digital breast mammography with tomosynthesis is performed in both the craniocaudal and mediolateral oblique views along with computer-aided detection (CAD). FINDINGS: There are scattered areas of fibroglandular [...] target due date for their next mammogram. Electronically signed by: Ann-Marie Valdez DO 06/23/2024 06:44 PM EDT Dictated By: Ann-Marie Valdez DO Signed By: <Electronically signed by Ann-Marie Valdez DO in OV> 06/23/24 1844 DD/ 1105 TD/TT: 06/18/24 1123 Databases Software Consultant: Nirali Bowser [facility] IM BI PROCEDURES Edited Result - Final * (ABNORMAL) Lipid Panel, Standard (09/07/2023 10:57 AM EDT) Triglycerides 198(H) <150 mg/dL [facility] Comment:Desirable Triglyceri de: less than 150 mg/dLBorderline High Triglyceride 150-199 mg/dLHigh Triglyceride: 200-499 mg/dLVery High Triglyceride: greater than or equal to 5OO mg/dL Cholesterol 222(H) <200 mg/dL [facility] Comment:Desirable Cholestero l: less than 200 mg/dLBorderline High Cholesterol: 200-239 mg/dLHigh Cholesterol: greater than 239 mg/dL LDL Cholesterol Calculated 133(H) <100 mg/dL [facility] Comment:Desirable LDL: less than 100 mg/dLNear Optimal/Above Optimal LDL: 110- 129 mg/dLBorderline High LDL: 130-159 mg/dLHigh LDL: 160-189 mg/dLVery High LDL: greater than or equal to 190 mg/dL HDL Cholesterol 50 >40 mg/dL [facility] Comment:Desirable HDL: great er than 40 mg/dL Note: This HDL assay may give artificially low results in patients with liver disease. Blood Venous blood specimen / Unknown 09/07/2023 10:57 AM EDT 09/07/2023 11:28 AM EDT Nirali BHAKTA LAB BLOOD ORDERABLES Final Resul t Performing Organization Address City/[facility]/ZIP Co de Phone Number [facility] [address] [place] [address] [phone] * HPV mRNA E6/E7 w/Reflex to HPV Genotypes 16, 18/45 (06/26/2023 1:05 PM EDT) HPV nRNA E6/E7 Not Detected Not Detected [facility] Comment:Methodology: Transcr iption-Mediated AmplificationThis assay detects E6/E7 viral messenger RNA (mRNA) from 14high-risk HPV types (16,18,31,33,35,39,45,51,52,56,58,59,66,68).Cervical sources are required for HPV testing.If a vaginal source from a patient who has had atotal hysterectomy with removal of cervix wassubmitted, please contact the testing laboratoryfor alternative testing options.For additional information, please refer [email or web address]/faq/BVP868b0(This link if provided for information/educational purposes only.)THIS TEST WAS PERFORMED AT:[facility] [place] [phone] GONZALEZ MD HPV mRNA E6/E7 [facility] HPV 16 RNA [facility] HPV 18/45 RNA [facility] 06/26/2023 1:05 PM EDT 06/27/2023 2:00 PM EDT Gabriela CARRILLO LAB CYTOLOGY ORDERABLES F inal Result [facility] [address] [place] [address] [phone] * Pap Smear (06/26/2023 1:05 PM EDT) Swab Cervix uteri structure / Unknown 06/26/2023 1:05 PM EDT 06/27/2023 2:00 PM EDT Narrative [facility] - 07/10/2023 10:51 AM EDT ----- ------- Name: MartySherry I ?Age/Sex: 57/F ? : 1965 Unit#: [id number] ?? Attend Dr: NIRALI BOWSER PUBLISHING DIRECTOR ?Re06/26/23 ?Status: DEP REF ? Location: [facility] ? Disch: ? ----- ------- SPEC : [id number] ? RECD: 06/27/23-1400 ? STATUS: ??SOUT ? REQ NUM: [id number] ? ZE: 06/26/23-1305 ? SUBM DR: GABRIELA NORIEGA CNM ? ENTERED: ??06/27/23-1446 ?SP TYPE: Pap Smr ?OTHR : ? ORDERED: ??Pap Smear ? Interpretation ?? Satisfactory for evaluation. ?? Negative for intraepithelial lesion or malignancy. ?HPV mRNA E6/E7: ?NOT DETECTED ? This assay detects E6/E7 viral messenger RNA (mRNA) from 14 high-risk HPV types (16, 18, ?? 31, 33, 35, 39, 45, 51, 52, 56, 58, 59, 66, 68) ?? HPV testing performed by [facility] [employer], [place], [place]. ??See reference laboratory ?? portion of the EMR for entire report. ?Clinical Information LMP: Postmenopausal Previous PAP test: 2019, WNL ? Material Received ?? ThinPrep-Vaginal/Cervical ----- ------- Signed (signature on file) LATOYA Curran (ASCP) 07/10/23 1051 ? ----- ------- ? END OF REPORT ? Gabriela Noriega [facility] CYTOLOGY ORDERABLES F inal Result Performing Organization Address [facility] de Phone Number [facility] [address] [place] [address] [phone] * Albumin, Random Urine W/Creatinine (12/02/2022 1:16 PM EDT) Creatinine, Urine 237.44 mg/dL [facility] Microalbumin Urine 30.0 mg/L [facility] Microalbum Creatinine Ratio Ur 12.6 <30 ug/mg cr [facility] Comment:Albumin/Creatinine R atio Reference Ranges: Normal: < 30 ug/mg creatinine Microalbuminuria: 30 - 300 ug/mg creatinineClinical Albuminuria: > 300 ug/mg creatinine Urine 12/02/2022 1:16 PM EDT 12/02/2022 3:56 PM EDT Nirali BHAKTA LAB URINE ORDERABLES Final Resul t Performing Organization Address [facility] de Phone Number [facility] [address] [place] [address] [phone] * Hm Colonoscopy (10/29/2021) Colonoscopy Normal Normal Narrative Татьяна Thomason - 10/29/2021 Recommended repeat colonoscopy in 2 years poor prep Historical Provider HEALTH MAINTENANCE Edited Result - Final * HEPATITIS C AB W/REFL TO HCV RNA, QN, PCR (06/25/2020 12:08 PM EDT) HEPATITIS C ANTIBODY NON-REACT CANDE NON-REACT CANDE [facility] INDEX 0.02 <1.00 [facility] Comment: ?? HCV antibody was non-reactive. There is no laboratory ?? evidence of HCV infection. ?? In most cases, no further action is required. However, if recent HCV exposure is suspected, a test for HCV RNA (test code 11112) is suggested. ?? For additional information please refer to [email or web address] [facility]/faq/EHJ35z6 (This link is being provided for informational/ educational purposes only.) ?? 06/25/2020 12:0 8 PM EDT us Jose Villa MD HISTORICAL/NON ORDERABLE LABS Fi nal Result [facility] [address] [place] [address], from Last 3 Months or Most Recently Relevant to Health Maintenance Insurance [facility] < 64 [employer] [place] [id number] [facility] [place] Care Teams Plastic Boat Buffer Relationship Specialty Start Date End Date Nirali Bowser ANP [address] [place] [phone] PCP - General Family Medicine 05/05/22
--- OUTSIDE RECORDS SUMMARY | 2024-07-31 14:16 | XMS_ITS | Encounter Summary ---
Author Organization [employer] [facility] Address [address] [place] [address] Care Team Providers Care Pizza Delivery Driver Name Role Phone Rachana Juarez MD Primary Care Provider Trish Marion Primary Care Provider [phone] Anna Singh Primary Care Provider [phone] Encounter Details Date Type Department Care Team (Latest Contact Info) Description 05/15/2018 Abstract [facility] CONVERSIONS Dental, Provider, DDS Social [...] Description 09/13/2024 2:00 PM EDT Office Visit [facility] [address] [place] [address] Ken, Lise [address] [place] [address] 09/26/2024 2:00 PM EDT Office Visit [facility] [address] [place] [address] Ken, Lise [address] [place] [address] 10/24/2024 1:00 PM EDT Office Visit [facility] [address] [place] [address] Anna Singh ANP [address] [place] [address] 01/14/2025 3:00 PM EDT Office Visit [facility] [address] [place], [place] [phone] Lise Rogers [address] [place] [address] documented as of this encounter Visit Diagnoses Not on filedocumented in this encounter Care Teams Pizza Delivery Driver Relationship Specialty Start Date End Date Rachana Juarez MD PCP - General Family Medicine 01/07/19 03/30/22 Trish Constantino FNP [address] [place], [place] [phone] PCP - General Family Medicine 03/31/22 05/04/22 Anna Singh ANP [address] [place] [address] PCP - General Family Medicine 05/05/22 documented as of this encounter
== END 2024-07-31 14:15 | disposition home or self-care (01) ==
LOC: HO.US 14:14
PROVIDERS: PCP Nurse Practitioner Primary Care; Visit Provider Advanced Practice Midwife
DX: D21.9 Benign neoplasm of connective and other soft tissue, unspecified (principal)
CPT/HCPCS: 76856

== ENCOUNTER 2024-10-28 10:20 | Outpatient (REF) | payer OTHER, SELFPAY ==
--- OUTSIDE RECORDS SUMMARY | 2024-10-28 10:56 | XMS_ITS | Clinical Summary ---
Author Organization [employer] Address [address] [place] [address] Care Team Providers Care Government Employee Name Role Phone Nirali Bowser Primary Care Provider [phone] Allergies Active Allergy Reactions Criticality Noted Date [...] Other route 2 times daily. 100 each 11 3 Active FREESTYLE LITE test stripIndications :Hypertension associated with diabetes (CMS/HCC) Twice daily as needed 100 each 11 3 Active Alcohol Swabs padsIndications: Type 2 diabetes mellitus with hyperglycemia, without long-term current use of insulin ([facility]) 1 each if needed (to clean skin). 100 each 3 Active glucose blood test stripIndications :Type 2 diabetes mellitus with hyperglycemia, without long-term current use of insulin ([facility]) 1 each by Other route 2 times daily. 100 each 12 3 Active Blood Glucose Monitoring Suppl (FreeStyle Bluff Lite) w/Device kitIndications:T ype 2 diabetes mellitus with hyperglycemia, without long-term current use of insulin ([facility]) Use to test blood sugar 3 times daily 1 kit 3 Active simvastatin (Zocor) 10 MG tabletIndication s:Type 2 diabetes mellitus with other circulatory complication, without long-term current use of insulin ([facility]) Take 1 tablet (10 mg) by mouth at bedtime. 90 tablet 3 4 11/22/19 25 Active Azelastine-Fluti casone 137-50 MCG/ACT suspensionIndica tions:Non-season al allergic rhinitis due to other allergic trigger Administer 1 spray into affected nostril(s) every 12 (twelve) hours. As needed for allergies/conge stion 23 g 2 5 Active lisinopril 5 MG tabletIndication s:Type 2 diabetes mellitus with hyperglycemia, without long-term current use of insulin (CMS/HCC) TAKE 1 TABLET BY MOUTH EVERY MORNING 90 tablet 1 5 Active NIFEdipine CC (Adalat CC) 30 MG 24 hr tabletIndication s:Hypertensive retinopathy of both eyes Take 1 tablet (30 mg) by mouth before breakfast. Do not crush, chew, or split. 30 tablet 2 5 10/25/19 26 Active Active Problems Problem Noted Date Diagnosed [...] Encounters Date Type Department Care Team Description 10/24/2024 1:00 PM EDT Office Visit [facility] [address] [place] [phone] Nirali Bowser ANP Type 2 diabetes mellitus with hyperlipidemia (CMS/HCC) ([facility]) (Primary Dx); Vitamin D deficiency; Hypertensive retinopathy of both eyes 10/24/2024 Travel 10/16/2024 Patient Outreach [facility] [address] [place] [phone] Nirali Bowser ANP Pre-visit Planning (SDOH screening was completed on 06/11/2024) 09/26/2024 2:00 PM EDT Office Visit [facility] [address] [place] [phone] Lise Rogers Gingival bleeding (Primary Dx); Dental calculus; Periodontal disease; Acute gingival inflammation 08/22/2024 2:00 PM EDT Office Visit [facility] [address] [place] [address] Ken, Lise Periodontal disease (Primary Dx); Dental calculus 08/01/2024 Results Follow-Up [facility] [address] [place] [address] Gabriela Noriega, KARINA Us Pelvis complete 07/31/2024 Telephone [facility] [address] [place] [address] Nirali Bowser ANP Med Refill 07/31/2024 Orders Only [facility] [address] [place] [address] Nirali Bowser ANP Type 2 diabetes mellitus with hyperglycemia, without long-term current use of insulin ([facility]) from Last 3 Months Immunizations Immunization Administration [...] your housing situation today? I have cipriano armires 06/11/[address] you li [...] Sign Reading Time Taken Comments Blood Pressure 134/90 10/24/2024 1:06 PM EDT Pulse 85 10/24/2024 1:06 PM EDT Temperature 36.5 C (97.7 F) 07/16/2024 3:27 PM EDT Respiratory Rate 16 10/24/2024 1:06 PM EDT Oxygen Saturation 99% 10/24/2024 1:06 PM EDT Inhaled Oxygen Concentration - - Weight 71.2 kg (157 lb) 10/24/2024 1:06 PM EDT Height 152.4 cm (5') 10/24/2024 1:06 PM EDT Body Mass Index 30.66 10/24/2024 1:06 PM EDT Plan of Treatment Upcoming Encounters Date Type Department Care Team (Late st Contact Info) Description 11/25/2024 1:30 PM EDT Clinical Support [facility] [address] [place] [address] 01/14/2025 3:00 PM EDT Office Visit [facility] [address] [place] [phone] Lise Rogers [address] [place] [address] Health Maintenance Due Date Last Done Comments CT Colonography 1965 FIT DNA/Cologuard 1965 FIT 1965 FOBT 1965 HIV Screening 1965 Sigmoidoscopy 1965 Disability Screening 1965 Eye Exam 1974 Alcohol/Substance Use Screening 1976 Zoster Vaccines (2 of 2) 04/03/2019 02/06/2019 COVID-19 Vaccine ( season) 2023 05/21/2021, 08/06/2020, 07/16/2020 Diabetes: Urine Protein Screening 12/03/2023 12/02/2022, 07/22/2021, 11/27/2020 Depression Monitoring 05/21/2024 11/22/2023, 024 Lipid Panel 09/06/2024 09/07/2023, 11/18, 11/27/2020 Influenza Vaccine (#1) 2024 , 12/19/2022, 05/05/2022, Additional history exists Dental Oral Exam 01/05/2025 07/05/2024, , 01/05/2021, Additional history exists Dental Prophylaxis 01/05/2025 07/05/2024, 0 12/15/2023, 09/13/2021, Additional history exists Diabetes: Hemoglobin A1C 01/24/2025 025, 06/21/2024, 03/26/2024, Additional history exists SDOH Screening 06/11/2025 06/11/2024 Mammogram 06/18/2025 06/18/2024, 05/19, 06/07/2022, Additional history exists Diabetes: Foot Exam 06/21/2025 06/21/2024, 06/21/2024, 06/21/2024, Additional history exists Dental X-Ray: Bitewings 07/06/2025 07/06/19 25, 10/31/2023, 09/13/2021, Additional history exists Tobacco Screening 10/24/2025 10/24/2024 Colonoscopy 02/01/2027 10/29/2021 Colorectal Cancer Screening 02/01/2027 Dental X-Ray: Full Mouth 07/07/2027 025, 01/05/2021, 10/16/2013, Additional history exists Cervical Cancer Screening 06/25/2028 HPV/Cotest 06/25/2028 06/26/2023, 11/21/2018 Pap Smear 06/25/2028 06/26/2023 DTaP/Tdap/Td Vaccines (3 - Td or Tdap) 04/27/2033 04/27/2023, 04/09/2013, 04/04/2002 RSV Patients and Patients Aged 60 years or older (1 - 1-dose 75+ series) 07/31/2039 Hepatitis C Screening Completed 06/25/2020 Pneumococcal Vaccine: 50+ Years Completed 06/21/2024 HIB [...] Diagnosis Comments POCT GLYCATED HEMOGLOBIN, TOTAL Routine 10/24/2024 1:09 PM EDT Type 2 diabetes mellitus with hyperlipidemia (CMS/HCC) ([facility]) POCT GLUCOSE Routine 10/24/2024 1:08 PM EDT Type 2 diabetes mellitus with hyperlipidemia (CMS/HCC) ([facility]) CASE PRESENTATION, DETAILED AND EXTENSIVE TREATMENT PLANNING Routine 09/26/2024 2:00 PM EDT Gingival bleeding Dental calculus Periodontal disease Acute gingival inflammation ORAL HYGIENE INSTRUCTIONS Routine 09/26/2024 2:00 PM EDT Gingival bleeding Dental calculus Periodontal disease Acute gingival inflammation LR PERIODONTAL SCALING AND ROOT PLANING - 4 OR MORE TEETH PER QUADRANT Routine 09/26/2024 2:00 PM EDT Gingival bleeding Dental calculus Periodontal disease Acute gingival inflammation UR PERIODONTAL SCALING AND ROOT PLANING - 4 OR MORE TEETH PER QUADRANT Routine 09/26/2024 2:00 PM EDT Gingival bleeding Dental calculus Periodontal disease Acute gingival inflammation CASE PRESENTATION, DETAILED AND EXTENSIVE TREATMENT PLANNING Routine 08/22/2024 2:00 PM EDT Periodontal disease Dental calculus ORAL HYGIENE INSTRUCTIONS Routine 08/22/2024 2:00 PM EDT Periodontal disease Dental calculus LL PERIODONTAL SCALING AND ROOT PLANING - 4 OR MORE TEETH PER QUADRANT Routine 08/22/2024 2:00 PM EDT Periodontal disease Dental calculus UL PERIODONTAL SCALING AND ROOT PLANING - 4 OR MORE TEETH PER QUADRANT Routine 08/22/2024 2:00 PM EDT Periodontal disease Dental calculus US PELVIS COMPLETE Routine 07/31/2024 4: 20 PM EDT PROPHYLAXIS - ADULT Routine 07/05/2024 1 0:00 AM EDT Periodontal disease Dental calculus Gingival bleeding Acute gingival inflammation Abfraction INTRAORAL - COMPLETE SERIES OF RADIOGRAPHIC IMAGES Routine 07/05/2024 10:00 AM EDT Fractured dental alevism with loss of material Periodontal disease Dental calculus Gingival bleeding Acute gingival inflammation Abfraction PERIODIC ORAL EVALUATION - ESTABLISHED PATIENT Routine 07/05/2024 10:00 AM EDT BI MAMMOGRAM SCREENING TOMOSYNTHESIS BILATERAL Routine 06/18/2024 11:05 AM EDT LIPID PANEL, STANDARD Routine 09/07/2023 10:57 AM EDT Type 2 diabetes mellitus with hyperlipidemia (CMS/HCC) ([facility]) HPV MRNA E6/E7 REFLEX TO HPV 16, [...] Maintenance Results * (ABNORMAL) POCT HGB A1C (10/24/2024 1:09 PM EDT) Hemoglobin A1C 6.6(A) 4.0 - 5.7 % QC Media Lot # [id number] Lot# Expiration Date Blood 10/24/2024 1:09 PM EDT us Nirali BHAKTA POINT OF CARE TEST ENTER/EDIT OR DERABLES Final Result * POCT Glucose (10/24/2024 1:08 PM EDT) Glucose Blood, POC 115 60 - 200 mg/dL QC Media Lot # [id number] Lot# Expiration Date [id number] Blood Capillary blood specimen / Unknown 10/24/2024 1:08 PM EDT us Nirali BHAKTA POINT OF CARE TEST ENTER/EDIT OR DERABLES Final Result * Us Pelvis complete (07/31/2024 4:20 PM EDT) Anatomical Region Laterality Modality Pelvis Ultrasound 07/31/2024 4:20 PM EDT Narrative 07/31/2024 4:21 PM EDT [address] [address] Ultrasound Report Signed Patient: Marty,Sherry I MR#: [id number] 6 : 1965 Acct:[id number] Age/Sex: 59 / F ADM Date: 07/31/24 Loc: HO.US Attending Dr: Gabriela Noriega CNM Ordering Physician: GABRIELA NORIEGA CNM Date of Service: 07/31/24 Procedure(s): US pelvic complete Accession Number(s): [id number] cc: GABRIELA NORIEGA CNM; NIRALI BOWSER NP CLINICAL HISTORY: f u fibroids -2023 US pelvis transabdominal Comparison: US/DE/SR - US PELVIC AND TRANSVAGINAL - 07/05/23 12:46 EDT Findings: Transabdominal scanning performed. The patient declined transvaginal evaluation. Markedly limited evaluation of the uterus with poor visualization of the endometrium and poor delineation of uterine fibroids. There is irregularity of the uterine contour Anteverted uterus is 15 cm length. Only 1 of the known uterine fibroids was well-visualized, a 4.3 x 4.6 x 4.6 cm subserosal fibroid arising from the fundus (Previously 5.1 x 4.2 x 6.1 cm). The endometrium was not well visualized. Neither ovary was visualized. No free fluid. IMPRESSION: 1. Fibroid uterus. This document has been electronically signed by: Keily Montelongo MD on 07/31/2024 16:20:10 Dictated By: Keily Montelongo MD Signed By: <Electronically signed by Keily Montelongo MD in OV> 07/31/24 1621 DD/ 1620 TD/TT: 07/31/24 1620 Play Reader: Procedure Note Donotuseinterpreter, Image - 08/05/[address] [address] Ultrasound Report Signed Patient: Sherry Ferguson IMR#: [id number] 6 : 1965Acct:[id number] Age/Sex: 59 / FADM Date: 07/31/24 Loc: HO.US Attending Dr: Gabriela Noriega CNM Ordering Physician: GABRIELA NORIEGA CNM Date of Service: 07/31/24 Procedure(s): US pelvic complete Accession Number(s): [id number] cc: GABRIELA NORIEGA CNM; NIRALI BOWSER NP CLINICAL HISTORY: f u fibroids -2023 US pelvis transabdominal Comparison: US/DE/SR - US PELVIC AND TRANSVAGINAL - 07/05/23 12:46 EDT Findings: Transabdominal scanning performed. The patient declined transvaginal evaluation. Markedly limited evaluation of the uterus with poor visualization of the endometrium and poor delineation of uterine fibroids. There is irregularity of the uterine contour Anteverted uterus is 15 cm length. Only 1 of the known uterine fibroids was well-visualized, a 4.3 x 4.6 x 4.6 cm subserosal fibroid arising from the fundus (Previously 5.1 x 4.2 x 6.1 cm). The endometrium was not well visualized. Neither ovary was visualized. No free fluid. IMPRESSION: 1. Fibroid uterus. This document has been electronically signed by: Keily Montelongo MD on 07/31/2024 16:20:10 Dictated By: Keily Montelongo MD Signed By: <Electronically signed by Keily Montelongo MD in OV> 07/31/24 1621 DD/ 1620 TD/TT: 07/31/24 1620 Play Reader: Gabriela Noriega CNM IM US PROCEDURES Edited Result - Final * BI Mammogram Screening Tomosynthesis Bilateral (06/18/2024 11:05 AM EDT) Anatomical Region Laterality Modality Breast Bilateral Mammography 06/18/2024 11:0 5 AM EDT Narrative 06/23/2024 6:47 PM EDT [facility] [address] [place] [address] Mammography Report Signed Patient: Sherry Ferguson I MR#: [id number] 6 : 1965 Acct:[id number] Age/Sex: 58 / F ADM Date: 06/18/24 Loc: HO.MAMMO Attending Dr: Nirali Bowser NP Ordering Physician: NIRALI BOWSER NP Results: 1Negative Date of Service: 06/18/24 Follow Up: 1 Year From Orig inal Mammogram Procedure(s): MM tomosynthesis screening BI Accession Number(s): [id number] cc: NIRALI BOWSER NP EXAMINATION: MM SCREENING [...] 06/23/24 1844 DD/ 1105 TD/TT: 06/18/24 1123 Play Reader: Procedure Note Donotuseinterpreter, Image - 06/23/2024 [facility] [address] [place] [address] Mammography Report Signed Patient: Sherry Ferguson [facility]#: [id number] 6 : 1965Acct:[id number] Age/Sex: 58 / FADM Date: 06/18/24 Loc: HO.MAMMO Attending Dr: Nirali Bowser NP Ordering Physician: NIRALI BOWSER NPResults: 1Negative Date of Service: 06/18/24Follow Up: 1 Year From Orig inal Mammogram Procedure(s): MM tomosynthesis screening BI Accession Number(s): [id number] cc: NIRALI BOWSER NP EXAMINATION: MM SCREENING [...] Ann-Marie Valdez DO 06/23/2024 06:44 PM EDT RP Dictated By: Ann-Marie Valdez DO Signed By: <Electronically signed by Ann-Marie Valdez DO in OV> 06/23/24 1844 DD/ 1105 TD/TT: 06/18/24 1123 Play Reader: Nirali Bowser ANP [facility] BI PROCEDURES Edited Result - Final * (ABNORMAL) Lipid Panel, Standard (09/07/2023 10:57 AM EDT) Triglycerides 198(H) <150 mg/dL [facility] Comment:Desirable Triglyceri de: less than 150 mg/dLBorderline High Triglyceride 150-199 mg/dLHigh Triglyceride: 200-499 mg/dLVery High Triglyceride: greater than or equal to 5OO mg/dL Cholesterol 222(H) <200 mg/dL [facility] Comment:Desirable Cholestero l: less than 200 mg/dLBorderline High Cholesterol: 200-239 mg/dLHigh Cholesterol: greater than 239 mg/dL LDL Cholesterol Calculated 133(H) <100 mg/dL [facility] Comment:Desirable LDL: less than 100 mg/dLNear Optimal/Above Optimal LDL: 110- 129 mg/dLBorderline High LDL: 130-159 mg/dLHigh LDL: 160-189 mg/dLVery High LDL: greater than or equal to 190 mg/dL HDL Cholesterol 50 >40 mg/dL [facility] Comment:Desirable HDL: great er than 40 mg/dL Note: This HDL assay may give artificially low results in patients with liver disease. Blood Venous blood specimen / Unknown 09/07/2023 10:57 AM EDT 09/07/2023 11:28 AM EDT Nirali BHAKTA LAB BLOOD ORDERABLES Final Resul t [facility] [address] [place] [address] [phone] * HPV mRNA E6/E7 w/Reflex to HPV Genotypes 16, 18/45 (06/26/2023 1:05 PM EDT) HPV nRNA E6/E7 Not Detected Not Detected [facility] Comment:Methodology: Transcr iption-Mediated AmplificationThis assay detects E6/E7 viral messenger RNA (mRNA) from 14high-risk HPV types (16,18,31,33,35,39,45,51,52,56,58,59,66,68).Cervical sources are required for HPV testing.If a vaginal source from a patient who has had atotal hysterectomy with removal of cervix wassubmitted, please contact the testing laboratoryfor alternative testing options.For additional information, please refer tohttp://education.Skipola/faq/WYD077g7(This link if provided for information/educational purposes only.)THIS TEST WAS PERFORMED AT:[facility] [place] [phone] GONZALEZ MD HPV mRNA E6/E7 [facility] HPV 16 RNA [facility] HPV 18/45 RNA [facility] 06/26/2023 1:05 PM EDT 06/27/2023 2:00 PM EDT Gabriela CARRILLO LAB CYTOLOGY ORDERABLES F inal Result [facility] [address] [place] [address] [phone] * Pap Smear (06/26/2023 1:05 PM EDT) Swab Cervix uteri structure / Unknown 06/26/2023 1:05 PM EDT 06/27/2023 2:00 PM EDT Narrative [facility] - 07/10/2023 10:51 AM EDT ----- ------- Name: Damian Fergusonerlin Lawrence Age/Sex: 57/F : 1965 Unit#: [id number] Attend Dr: NIRALI BOWSER NP Re06/26/23 Status: [facility] Location: [facility] Disch: ----- ------- SPEC : [id number] RECD: 06/27/23-1399 STATUS: ANGELA HADDAD NUM: [id number] ZE: 06/26/23-[address] [facility] [address]: GABRIELA NORIEGA CNM ENTERED: 06/27/23-717 SP TYPE: Pap Smr OTHR DR: ORDERED: Pap Smear Interpretation Satisfactory for evaluation. Negative for intraepithelial lesion or malignancy. HPV mRNA E6/E7: NOT DETECTED This assay detects E6/E7 viral messenger RNA (mRNA) from 14 high-risk HPV types (16, 18, 31, 33, 35, 39, 45, 51, 52, 56, 58, 59, 66, 68) HPV testing performed by [facility], [place], [place]. See reference laboratory portion of the EMR for entire report. Clinical Information LMP: Postmenopausal Previous PAP test: 2019, WNL Material Received ThinPrep-Vaginal/Cervical ----- ------- Signed (signature on file) LATOYA Curran (ASCP) 07/10/23 1051 ----- ------- END OF REPORT us Gabriela Noriega [facility] CYTOLOGY ORDERABLES F inal Result [facility] [address] [place] [phone] * Albumin, Random Urine W/Creatinine (12/02/2022 1:16 PM EDT) Creatinine, Urine 237.44 mg/dL [facility] Microalbumin Urine 30.0 mg/L [facility] Microalbum Creatinine Ratio Ur 12.6 <30 ug/mg cr [facility] Comment:Albumin/Creatinine R atio Reference Ranges: Normal: < 30 ug/mg creatinine Microalbuminuria: 30 - 300 ug/mg creatinineClinical Albuminuria: > 300 ug/mg creatinine Urine 12/02/2022 1:16 PM EDT 12/02/2022 3:56 PM EDT Nirali BHAKTA LAB URINE ORDERABLES Final Resul t [facility] [address] [place] [address] [phone] * Hm Colonoscopy (10/29/2021) Colonoscopy Normal Normal Narrative Татьяна Thomason - 10/29/2021 Recommended repeat colonoscopy in 2 years poor prep Historical Provider HEALTH MAINTENANCE Edited Result - Final * HEPATITIS C AB W/REFL TO HCV RNA, QN, PCR (06/25/2020 12:08 PM EDT) HEPATITIS C ANTIBODY NON-REACT CANDE NON-REACT CANDE [facility] INDEX 0.02 <1.00 [facility] Comment: HCV antibody was non-reactive. There is no laboratory evidence of HCV infection. In most cases, no further action is required. However, if recent HCV exposure is suspected, a test for HCV RNA (test code 25315) is suggested. For additional information please refer to http://education.Roojoom.Templafy/faq/VDX80w5 (This link is being provided for informational/ educational purposes only.) 06/25/2020 12:0 8 PM EDT Jose Villa MD HISTORICAL/NON ORDERABLE LABS Fi nal Result [facility] [address] from Last 3 Months or Most Recently Relevant to Health Maintenance Insurance [employer] [facility] < 65 DENTAL - [facility] Care Teams Government Employee Relationship Specialty Start Date End Date Nirali Bowser ANP [address] [place] [phone] PCP - General Family Medicine 05/05/22
[2024-10-28 14:00] LABS: Anion Gap 13 (12-20); Blood Urea Nitrogen 10 mg/dL (9-16); Calcium 9.5 mg/dL (8.4-10.2); Carbon Dioxide 28 mmol/L (22-29); Chloride 106 mmol/L (96-108); Cholesterol 209 mg/dL (<200); Estimated Glomerular Filt Rate > 60; HDL Cholesterol 53 mg/dL (>40); Potassium 4.2 mmol/L (3.3-5.1); Sodium 143 mmol/L (135-145); Triglycerides 231 mg/dL (<150)
[2024-10-28 14:27] LABS: Microalbum/Creatinine Ratio Ur 8.9 ug/mg cr (<30)
== END 2024-10-28 10:21 | disposition home or self-care (01) ==
LOC: HO.HHCL 10:20
PROVIDERS: PCP Nurse Practitioner Primary Care; Visit Provider Nurse Practitioner Primary Care
DX: E11.59 Type 2 diabetes mellitus with other circulatory complications (principal); E11.69 Type 2 diabetes mellitus with other specified complication; I15.2 Hypertension secondary to endocrine disorders; E78.5 Hyperlipidemia, unspecified; E55.9 Vitamin D deficiency, unspecified
CPT/HCPCS: 36415; 80048; 80061; 82043; 82306; 82570

== ENCOUNTER 2024-11-19 15:46 | Outpatient (REF) | payer OTHER, SELFPAY ==
--- OUTSIDE RECORDS SUMMARY | 2024-11-19 15:40 | XMS_ITS | Encounter Summary ---
Author Organization [employer] Address [address] [facility] 7t [place] [address] Care Team Providers Care Administration Assistant Name Role Phone Anna Singh Primary Care Provider [phone] Reason for Visit * Reason Comments Hip Pain Encounter Details Date Type Department Care Team (Late st Contact Info) Description 11/19/2024 3:40 PM EDT Office Visit [facility] WALK-IN [address] [id number] Name, MD Derrell [address] [place] [address] Essential hypertension (Primary Dx); Chronic right hip pain; Urination frequency Social History Tobacco Use Types Packs/Day Years [...] AM EDT documented as of this encounter Last Filed Vital Signs Vital Sign Reading Time Taken Comments Blood Pressure 143/89 11/19/2024 3:34 PM EDT Pulse 82 11/19/2024 3:16 PM EDT Temperature 36.8 C (98.2 F) 11/19/2024 3:16 PM EDT Respiratory Rate 18 11/19/2024 3:16 PM EDT Oxygen Saturation 98% 11/19/2024 3:16 PM EDT Inhaled Oxygen Concentration - - Weight 70.8 kg (156 lb) 11/19/2024 3:16 PM EDT Height - - Body Mass Index 30.47 10/24/2024 1:06 PM EDT documented in this encounter Progress Notes * Derrell Gilliam MD - 11/19/2024 3:40 PM EDT Subjective Patient ID: Sherry Ferguson is a 59 y.o. female who presents for Hip Pain. Patient comes complaining of several weeks of right hip pain. She describes right lateral hip pain and right groin discomfort on and off precipitated by physical exertion. The patient is convinced her pain is a medication side effect. She stopped using all of her medications last week because of this and she feels the musculoskeletal discomfort has improved. The patient has requested that I prescribe her 2.5 mg of lisinopril and 10 mg of simvastatin [facility] and [facility] (she DC'd Diovan, nifedipine, and 20 mg simvastatin lastweek due to her musculoskeletal complaints). She has a good exercise tolerance, she enjoys walking,she tells me that she played pickle ball last week. Review of Systems Constitutional: Negative for chills and fever. HENT: Negative for sore throat. Respiratory: Negative for cough, shortness of breath and wheezing. Cardiovascular: Negative for chest pain, palpitations and leg swelling. Gastrointestinal: Negative for abdominal pain. Genitourinary: She complains of several days of urinary frequency. No dysuria. Musculoskeletal: Positive for arthralgias. Objective Vitals: 11/19/24 1516 11/19/24 1534 BP: (!) 158/91 (!) 143/89 BP Location: Left arm Patient Position: Sitting BP Cuff Size: Adult Pulse: 82 Resp: 18 Temp: 98.2 ??F (36.8 ??C) TempSrc: Temporal SpO2: 98% Weight: 156 lb (70.8 kg) Physical Exam Constitutional: Appearance: Normal appearance. Cardiovascular: Rate and Rhythm: Normal rate and regular rhythm. Heart sounds: No murmur heard. No gallop. Pulmonary: Effort: Pulmonary effort is normal. No respiratory distress. Breath sounds: Normal breath sounds. No wheezing. Musculoskeletal: Right hip: Normal. Left hip: Normal. Right lower leg: No edema. Left lower leg: No edema. Neurological: Mental Status: She is alert. Assessment/Plan Diagnoses and all orders for this visit: Essential hypertension Comments: I recommended restarting antihypertensives. She refuses to use the Diovan and nifedipine she was using last week. I agreed to restart her on lisinopril 2.5 mg a day. She has a blood pressure monitor at home that she is recommended to use daily. She has an upcoming appointment with team nurses to recheck her blood pressure. Chronic right hip pain Comments: Musculoskeletal discomfort. I told her it is unlikely this has to do with her BP medications. Is possible statin could be exacerbating musculoskeletal discomfort so I agreed to restart her at a lowerdose. I recommended acetaminophen for pain and evaluation with x-ray to rule out DJD Orders: - XR Hip 2 or 3 Views Right; Future Urination frequency Comments: I recommended evaluation with urinalysis to rule out UTI. Orders: - Urinalysis, Complete, with Reflex to Culture; Future Other orders - lisinopril 2.5 MG tablet; Take 1 tablet (2.5 mg) by mouth Once per day. - simvastatin (Zocor) 10 MG tablet; Take 1 tablet (10 mg) by mouth at bedtime. - acetaminophen (Tylenol Extra Strength) 500 MG tablet; Take 1 tablet (500 mg) by mouth every 8 (eight) hours if needed for moderate pain. Future Appointments Date Time Provider Department Center 11/19/2024 3:40 PM [facility] WALK-IN CLINIC 1 WALK-IN [facility] 11/25/2024 1:30 PM [facility] GREEN TEAM NURSE MEDICINE [facility] 01/14/2025 3:00 PM Lise Rogers ADLT DENT [facility] documented in this encounter Plan of Treatment Upcoming Encounters Date Type Department Care Team (Late st Contact Info) Description 11/25/2024 1:30 PM EDT Clinical Support [facility] MEDICINE [address] [place] [address] 01/14/2025 3:00 PM EDT Office Visit [facility] ADULT DENTAL [address] [place] [address] Lise Rogers [address] [place] [address] Scheduled Orders Name Type Priority Associated Diagnoses Orde r Schedule XR Hip 2 or 3 Views Right Imaging Routine Chronic right hip pain Expected: 11/19/2024, Expires: 11/19/2025 Urinalysis, Complete, with Reflex to Culture Lab Routine Urination frequency Expected: 11/19/2024 (Approximate), Expires: 11/19/2025 documented as of this encounter Visit Diagnoses Diagnosis Essential hypertension- Primary Unspecified essential hypertension Chronic right hip pain Urination frequency Urinary frequency documented in this encounter Additional Health Concerns Assessment Noted Time PHQ-9 Depression Total Score: 17 024 4:07 PM EDT documented as of this encounter Care Teams Administration Assistant Relationship Specialty Start Date End Date Anna Singh ANP [address] [place] [address] PCP - General Family Medicine 05/05/22 documented as of this encounter
--- OUTSIDE RECORDS SUMMARY | 2024-11-19 16:39 | XMS_ITS | Encounter Summary ---
Author Organization [employer] Address [address] [facility] [address] [place] [address] Care Team Providers Care Trauma Nurse Name Role Phone Anna Singh Primary Care Provider [phone] Reason for Visit * Reason Onset Date Comments Medication Question 11/18/2022 Encounter Details Date Type Department Care Team ([facility] Contact Info) Description 11/18/2022 Telephone [facility] MEDICINE [address] [place], [place] [phone] Anna Singh ANP [address] [place] [address] Medication Question Social History Tobacco Use Types [...] 11/18/2022 12:45 PM EDT Michael Menjivar from [facility] calling to inform script that was sent for Alcohol Swabs pads needsdirections. documented in this encounter Plan of Treatment Upcoming Encounters Date Type Department Care Team ([facility] Contact Info) Description 11/25/2024 1:30 PM EDT Clinical Support [facility] MEDICINE [address] [place] [address] 01/14/2025 3:00 PM EDT Office Visit [facility] ADULT DENTAL [address] [place] [address] Michael Rogersaris [address] [place] [address] documented as of this encounter Visit Diagnoses Not on filedocumented in this encounter Additional Health Concerns Assessment Noted Time PHQ-9 Depression Total Score: 14 023 2:33 PM EDT documented as of this encounter Care Teams Trauma Nurse Relationship Specialty Start Date End Date Anna Singh ANP [address] [place] [address] PCP - General Family Medicine 05/05/22 documented as of this encounter
--- OUTSIDE RECORDS SUMMARY | 2024-11-19 16:39 | XMS_ITS | Encounter Summary ---
Author Organization [employer] Address [address] [facility] 7t [place] [address] Care Team Providers Care Block Cableman Name Role Phone Anna Singh Primary Care Provider [phone] Reason for Visit * Reason Onset Date Comments Med Refill 01/17/2023 Encounter Details Date Type Department Care Team (Late st Contact Info) Description 01/17/2023 Telephone [facility] MEDICINE [address] [place], [place] [phone] Anna Singh ANP [address] [place], [place] [phone] Med Refill Social History Tobacco Use Types [...] t he electric, gas, oil or water [employer] threatened to shut off services in your [...] Description 11/25/2024 1:30 PM EDT Clinical Support [facility] MEDICINE [address] [place] [address] 01/14/2025 3:00 PM EDT Office Visit [facility] ADULT DENTAL [address] [place] [address] Ken, Lise [address] [place] [address] documented as of this encounter Visit Diagnoses Not on filedocumented in this encounter Additional Health Concerns Assessment Noted Time PHQ-9 Depression Total Score: 14 023 2:33 PM EDT documented as of this encounter Care Teams Block Cableman Relationship Specialty Start Date End Date Anna Singh ANP [address] [place] [address] PCP - General Family Medicine 05/05/22 documented as of this encounter
--- OUTSIDE RECORDS SUMMARY | 2024-11-19 16:39 | XMS_ITS | Encounter Summary ---
Author Organization [employer] Address [address] [facility] [address] [place] [address] Care Team Providers Care Pool Finisher Name Role Phone Rachana Juarez MD Primary Care Provider Trish Marion Primary Care Provider [phone] Anna Singh Primary Care Provider [phone] Encounter Details Date Type Department Care Team (Latest Contact Info) Description 05/15/2018 Abstract [facility] CONVERSIONS Dental, Provider, DDS Social History [...] Upcoming Encounters Date Type Department Care Team ( st Contact Info) Description 11/25/2024 1:30 PM EDT Clinical Support [facility] MEDICINE [address] [place] [address] 01/14/2025 3:00 PM EDT Office Visit [facility] ADULT DENTAL [address] [place] [address] KenMichaelLise [address] [place] [address] documented as of this encounter Visit Diagnoses Not on filedocumented in this encounter Care Teams Pool Finisher Relationship Specialty Start Date End Date Rachana Juarez MD PCP - General Family Medicine 01/07/19 03/30/22 Trish Constantino FNP [address] [place] [address] PCP - General Family Medicine 03/31/22 05/04/22 Anna Singh ANP [address] [place] [address] PCP - General Family Medicine 05/05/22 documented as of this encounter
--- OUTSIDE RECORDS SUMMARY | 2024-11-19 16:39 | XMS_ITS | Encounter Summary ---
Author Organization [employer] Address [address] [facility] 7t [place] [address] Care Team Providers Care Software Solutions Architect Name Role Phone Anna Singh Primary Care Provider [phone] Reason for Visit * Reason Onset Date Comments Medication Question 11/11/2024 Encounter Details Date Type Department Care Team ([facility] st Contact Info) Description 11/11/2024 Telephone [facility] MEDICINE [address] [place], [place] [phone] Anna Singh ANP [address] [place], [place] [phone] Medication Question Social History Tobacco Use Types [...] encounter Miscellaneous Notes * Telephone Encounter - Sofia Maldonado RN - 11/14/2024 3:02 PM EDT TC placed to the pt with S railroad repairer #[id number] to inform and advise regarding pt request for a change in medication from Valsartan 40 mg back to Lisinopril 2.5 mg. Pt was advised that PCP reviewed this request and stated that the pt should remain compliant with taking all prescribed blood pressuremedications and come to already scheduled BP check on 11/25/2024. The pt was instructed to take bloodpressure readings at least twice daily leading up to this appt. The pt was in disagreement about this advice and stated that the current medication Vasartan 40 MG is making her blood pressure too high. Pt did not state that there are any corresponding symptoms with the elevated numbers. Pt was madeaware of the ongoing concerns with continued side effects from frequent changes in blood pressure medications but is not happy with current regimen. Per OV note from 10/24/2024 PCP advised if there areany side effects from the Valsartan will recommend low dose chlorthalidone. Pt in agreement and advised that this will be sent back to PCP for review. * Telephone Encounter - LIVIA Zazueta - 11/14/2024 2:03 PM EDT Can you please schedule pt for BP log review? She has had side effects to every medication thus fartried including lisinopril 2.5 that she is requesting. Would like to see a few weeks of home BP measurements to proceed. * Telephone Encounter - Candace Thompson - 11/11/2024 12:59 PM EDT Patient walked in requesting to change medication from valsartan 40 mg back to lisinopril 2.5. Per Patient the valsartan is causing her BP to drop too much and make Patient feel unwell. documented in this encounter Plan of Treatment Upcoming Encounters Date Type Department Care Team (Late st Contact Info) Description 11/25/2024 1:30 PM EDT Clinical Support [facility] MEDICINE [address] [place] [address] 01/14/2025 3:00 PM EDT Office Visit [facility] ADULT DENTAL [address] [place] [address] KenMichaelLise [address] [place] [address] documented as of this encounter Visit Diagnoses Not on filedocumented in this encounter Additional Health Concerns Assessment Noted Time PHQ-9 Depression Total Score: 17 11/21/ 024 4:07 PM EDT documented as of this encounter Care Teams Software Solutions Architect Relationship Specialty Start Date End Date Anna Singh ANP [address] [place] [address] PCP - General Family Medicine 05/05/22 documented as of this encounter
--- OUTSIDE RECORDS SUMMARY | 2024-11-19 16:39 | XMS_ITS | Encounter Summary ---
Author Organization [employer] Address [address] [facility] 7t [place] [address] Care Team Providers Care Distribution Center Manager Name Role Phone Anna Singh Primary Care Provider [phone] Encounter Details Date Type Department Care Team (Latest Contact Info) Description 11/19/2024 Travel Social History Tobacco Use Types Packs/Day Years [...] Description 11/25/2024 1:30 PM EDT Clinical Support [facility] MEDICINE [address] [place] [address] 01/14/2025 3:00 PM EDT Office Visit [facility] ADULT DENTAL [address] [place] [address] Lise Rogers [address] [place] [address] documented as of this encounter Visit Diagnoses Not on filedocumented in this encounter Additional Health Concerns Assessment Noted Time PHQ-9 Depression Total Score: 17 024 4:07 PM EDT documented as of this encounter Care Teams Distribution Center Manager Relationship Specialty Start Date End Date Anna Singh ANP [address] [place] [address] PCP - General Family Medicine 05/05/22 documented as of this encounter
--- OUTSIDE RECORDS SUMMARY | 2024-11-19 16:39 | XMS_ITS | Encounter Summary ---
Author Organization [employer] Address [address] [facility] [address] [place] [address] Care Team Providers Care Cooperative Manager Name Role Phone Rachana Juarez MD Primary Care Provider Trish Marion Primary Care Provider [phone] Anna Singh Primary Care Provider [phone] Encounter Details Date Type Department Care Team (Latest Contact Info) Description 01/05/2021 Abstract [facility] CONVERSIONS Dental, Provider, DDS Social History [...] Description 11/25/2024 1:30 PM EDT Clinical Support [facility] MEDICINE [address] [place] [address] 01/14/2025 3:00 PM EDT Office Visit [facility] ADULT DENTAL [address] [place] [address] KenMichaelLise [address] [place] [address] documented as of this encounter Visit Diagnoses Not on filedocumented in this encounter Care Teams Cooperative Manager Relationship Specialty Start Date End Date Rachana Juarez MD PCP - General Family Medicine 01/07/19 03/30/22 Trish Constantino FNP [address] [place] [address] PCP - General Family Medicine 03/31/22 05/04/22 Anna Singh ANP [address] [place] [address] PCP - General Family Medicine 05/05/22 documented as of this encounter
--- OUTSIDE RECORDS SUMMARY | 2024-11-19 16:39 | XMS_ITS | Clinical Summary ---
Author Organization [employer] Address [address] [place] [address] Care Team Providers Care Marble Setter Helper Name Role Phone Nirali Bowser Primary Care Provider [phone] Allergies Active Allergy Reactions Criticality Noted Date Comments Cetirizine Headache,Anxiety Low 05/24/2019 Pravastatin Other Low 03/02/2023 Change in taste Medications Blood Glucose Monitoring Suppl (FreeStyle Lite) w/Device kit 10/20/19 22 Active Calcium Carb-Cholecalc iferol 600-10 MG-MCG tablet Take 1 capsule by mouth in the morning. 01/31/20 17 Active FreeStyle lancetsIndicat ions:Hypertens ion associated with diabetes ([facility]) 1 each by Other route 2 times daily. 100 each 11/19/19 23 Active FREESTYLE LITE test stripIndicatio ns:Hypertensio n associated with diabetes ([facility]) Twice daily as needed 100 each 11/19/19 23 Active Alcohol Swabs padsIndication s:Type 2 diabetes mellitus with hyperglycemia, without long-term current use of insulin ([facility]) 1 each if needed (to clean skin). 100 each 11/19/19 23 Active glucose blood test stripIndicatio ns:Type 2 diabetes mellitus with hyperglycemia, without long-term current use of insulin ([facility]) 1 each by Other route 2 times daily. 100 each 12/01/19 23 Active Blood Glucose Monitoring Suppl (FreeStyle [place] Lite) w/Device kitIndications :Type 2 diabetes mellitus with hyperglycemia, without long-term current use of insulin ([facility]) Use to test blood sugar 3 times daily 1 kit 12/10/19 23 Active Azelastine-Flu ticasone 137-50 MCG/ACT suspensionIndi cations:Non-se asonal allergic rhinitis due to other allergic trigger Administer 1 spray into affected nostril(s) every 12 (twelve) hours. As needed for allergies/con gestion 23 g 2 03/26/19 25 Active lisinopril 2.5 MG tablet Take 1 tablet (2.5 mg) by mouth Once per day. 30 tablet 11 11/20/19 25 026 Active simvastatin (Zocor) 10 MG tablet Take 1 tablet (10 mg) by mouth at bedtime. 30 tablet 11/20/19 25 026 Active acetaminophen (Tylenol Extra Strength) 500 MG tablet Take 1 tablet (500 mg) by mouth every 8 (eight) hours if needed for moderate pain. 90 tablet 11/20/19 25 025 Active simvastatin (Zocor) 10 MG tabletIndicati ons:Type 2 diabetes mellitus with other circulatory complication, without long-term current use of insulin ([facility]) Take 1 tablet (10 mg) by mouth at bedtime. 90 tablet 3 11/22/19 24 025 Discontinued(Re order (will not trigger notification to Pharmacy)) lisinopril 5 MG tabletIndicati ons:Type 2 diabetes mellitus with hyperglycemia, without long-term current use of insulin ([facility]) TAKE 1 TABLET BY MOUTH EVERY MORNING 90 tablet 1 08/01/19 25 025 Discontinued(Callie de effects) NIFEdipine CC (Adalat CC) 30 MG 24 hr tabletIndicati ons:Hypertensi ve retinopathy of both eyes Take 1 tablet (30 mg) by mouth before breakfast. Do not crush, chew, or split. 30 tablet 2 10/25/19 25 025 Discontinued(Jv mckenzie refused) valsartan (Diovan) 40 MG tabletIndicati ons:Hypertensi ve retinopathy of both eyes,Hypertens ion associated with diabetes (CMS/HCC) Take 1 tablet (40 mg) by mouth Once per day. 30 tablet 1 10/29/19 25 025 Discontinued(Jv mckenzie refused) simvastatin (Zocor) 20 MG tabletIndicati ons:Type 2 diabetes mellitus with other circulatory complication, without long-term current use of insulin ([facility]) Take 1 tablet (20 mg) by mouth at bedtime. 90 tablet 3 11/06/19 25 025 Discontinued(Jv bartonnt discharge) Active Problems Problem Noted Date Diagnosed Date [...] Encounters Date Type Department Care Team Description 11/19/2024 3:40 PM EDT Office Visit [facility] [address] [place] [phone] Derrell Gilliam MD Essential hypertension (Primary Dx); Chronic right hip pain; Urination frequency 11/19/2024 Travel 11/11/[address] [address] Nirali Bowser ANP Medication Question 11/05/2024 Results Follow-Up [address] [address] Nirali Bowser ANP Albumin, Random Urine W/Creatinine, Basic Metabolic Panel 10/28/[address] [address] Nirali Bowser ANP 10/28/[address] [address] Renea Melara, electric engine mechanic Question 10/24/2024 1:00 PM EDT Office Visit [address] [address] Nirali Bowser ANP Type 2 diabetes mellitus with hyperlipidemia (CMS/HCC) (CMS/HCC) (Primary Dx); Vitamin D deficiency; Hypertensive retinopathy of both eyes; Hypertension associated with diabetes (CMS/HCC) 10/24/2024 Travel 10/16/2024 Patient Outreach [address] [address] Nirali Bowser ANP Pre-visit Planning (SDOH screening was completed on 06/11/2024) 09/26/2024 2:00 PM EDT Office Visit [facility] [address] [place] [phone] Lise Rogers Gingival bleeding (Primary Dx); Dental calculus; Periodontal disease; Acute gingival inflammation 08/22/2024 2:00 PM EDT Office Visit [facility] [address] [place] [address] Lise Rogers Periodontal disease (Primary Dx); Dental calculus from Last 3 Months Immunizations Immunization Administration [...] (156 lb) 11/19/2024 3:16 PM EDT Height 152.4 cm (5') 10/24/2024 1:06 PM EDT Body Mass Index 30.47 10/24/2024 1:06 PM EDT Plan of Treatment Upcoming Encounters Date Type Department Care Team (Late st Contact Info) Description 11/25/2024 1:30 PM EDT Clinical Support [facility] [address], [place] [phone] 01/14/2025 3:00 PM EDT Office Visit [facility] [address] [place] [address] Lise Rogers [address] [place] [address] Health Maintenance Due Date Last Done Comments CT Colonography 1965 FIT DNA/Cologuard 1965 FIT 1965 FOBT 1965 HIV Screening 1965 Sigmoidoscopy 1965 Disability Screening 1965 Eye Exam 1974 Alcohol/Substance Use Screening 1976 Zoster Vaccines (2 of 2) 04/03/2019 02/06/2019 Depression Monitoring 05/21/2024 11/22/2023, 024 COVID-19 Vaccine ( season) 2024 05/21/2021, 08/06/2020, 07/16/2020 Influenza Vaccine (#1) 2024 , 12/19/2022, 05/05/2022, [...] Additional history exists Dental X-Ray: Bitewings 07/06/2025 07/06/19, 10/31/2023, 09/13/2021, Additional history exists Diabetes: Urine Protein Screening 10/28/2025 10/28/2024, 12/02/2022, 07/22/2021, Additional history exists Lipid Panel 10/28/2025 10/28/2024, 08/19, 12/02/2022, Additional history exists Tobacco Screening 11/19/2025 11/19/2024 Colonoscopy 02/01/2027 10/29/2021 Colorectal Cancer Screening 02/01/2027 [...] Procedure Name Priority Date/Time Associated Diagnosis Comments VITAMIN D,25-OH,TOTAL,IA Routine 10/28/2024 10:59 AM EDT Vitamin D deficiency LIPID PANEL, STANDARD Routine 10/28/2024 10:59 AM EDT Type 2 diabetes mellitus with hyperlipidemia (CMS/HCC) (CMS/HCC) BASIC METABOLIC PANEL Routine 10/28/2024 10:59 AM EDT Hypertension associated with diabetes (CMS/HCC) ALBUMIN, RANDOM URINE W/CREATININE Routine 10/28/2024 10:59 AM EDT Hypertension associated with diabetes ([facility]/HCC) POCT GLYCATED HEMOGLOBIN, TOTAL Routine 10/24/2024 1:09 PM EDT Type 2 diabetes mellitus with hyperlipidemia ([facility]/HCC) ([facility]) POCT GLUCOSE Routine 10/24/2024 1:08 PM EDT Type 2 diabetes mellitus with hyperlipidemia ([facility]) ([facility]) CASE PRESENTATION, DETAILED AND EXTENSIVE TREATMENT [...] 2:00 PM EDT Periodontal disease Dental calculus PROPHYLAXIS - ADULT Routine 07/05/2024 1 0:00 AM EDT Periodontal disease Dental calculus Gingival bleeding Acute gingival inflammation Abfraction INTRAORAL - COMPLETE SERIES OF RADIOGRAPHIC IMAGES Routine 07/05/2024 10:00 AM EDT Fractured dental taoist with loss of material Periodontal disease Dental calculus Gingival bleeding Acute gingival inflammation Abfraction PERIODIC ORAL EVALUATION - ESTABLISHED PATIENT Routine 07/05/2024 10:00 AM EDT BI MAMMOGRAM SCREENING TOMOSYNTHESIS BILATERAL Routine 06/18/2024 11:05 AM EDT HPV MRNA E6/E7 REFLEX TO HPV 16, 18/45 Routine 06/26/2023 1:05 PM EDT PAP SMEAR Routine 06/26/2023 1:05 PM EDT Cervical cancer screening HM COLONOSCOPY Routine 10/29/2021 ZZZ HISTORICAL HEPATITIS C AB W/REFL TO HCV RNA, QN, PCR Routine 06/25/2020 12:08 PM EDT from Last 3 Months or Most Recently Relevant to Health Maintenance Results * Vitamin D, 25-Hydroxy, Total, Immunoassay (10/28/2024 10:59 AM EDT) Vitamin D 25-OH Total 46.1 >30 ng/mL [facility] Comment: Health Based Reference Values*< 20 ng/mL Dltgrposj40-65 ng/mL Insufficient> 30 ng/mL Sufficient*Kee LABOY. N Engl J Med. 2007;357:266-280There is no well-established upper level of normal vitamin Dlevels. Some laboratories use 50 ng/mL as an upper limit ofnormal. However, toxicity is patient-dependent and may occurat any level. Careful correlation with the patient'spresentation is necessary and, if there is concern forvitamin D toxicity, treatment should be consideredirrespective of the serum level.Care must be taken in interpreting Vitamin D results fromdifferent laboratories and methodologies. Published datademonstrated that results from patients undergoinghemodialysis may show a negative bias when tested withvarious automated 25-OH vitamin D assays when compared toLC-MS/MS.When testing samples from patients whose predominant form ofVitamin D is Vitamin D2, such as patients receiving VitaminD2 supplementation, results that are subtherapeutic shouldbe confirmed with another method such as LC-MS/MS. Blood Venous blood specimen / Unknown 10/28/2024 10:59 AM EDT 10/28/2024 1:18 PM EDT Nirali BHAKTA LAB BLOOD ORDERABLES Final Resul t [facility] [address] [place] [phone] * Albumin, Random Urine W/Creatinine (10/28/2024 10:59 AM EDT) Creatinine, Urine 155.65 mg/dL [facility] Microalbumin Urine 14.0 mg/L [facility] Microalbum Creatinine Ratio Ur 8.9 <30 ug/mg cr [facility] Comment:Albumin/Creatinine R atio Reference Ranges: Normal: < 30 ug/mg creatinine Microalbuminuria: 30 - 300 ug/mg creatinineClinical Albuminuria: > 300 ug/mg creatinine Urine 10/28/2024 10:5 9 AM EDT 10/28/2024 12:52 PM EDT Nirali BHAKTA LAB URINE ORDERABLES Final Resul t [facility] [address] [place] [phone] [phone] * (ABNORMAL) Lipid Panel, Standard (10/28/2024 10:59 AM EDT) Triglycerides 231(H) <150 mg/dL [facility] Comment:Desirable Triglyceri de: less than 150 mg/dLBorderline High Triglyceride 150-199 mg/dLHigh Triglyceride: 200-499 mg/dLVery High Triglyceride: greater than or equal to 5OO mg/dL Cholesterol 209(H) <200 mg/dL [facility] Comment:Desirable Cholestero l: less than 200 mg/dLBorderline High Cholesterol: 200-239 mg/dLHigh Cholesterol: greater than 239 mg/dL LDL Cholesterol Calculated 110(H) <100 mg/dL [facility] Comment:Desirable LDL: less than 100 mg/dLNear Optimal/Above Optimal LDL: 110- 129 mg/dLBorderline High LDL: 130-159 mg/dLHigh LDL: 160-189 mg/dLVery High LDL: greater than or equal to 190 mg/dL HDL Cholesterol 53 >40 mg/dL [facility] Comment:Desirable HDL: great er than 40 mg/dL Note: This HDL assay may give artificially low results in patients with liver disease. Blood Venous blood specimen / Unknown 10/28/2024 10:59 AM EDT 10/28/2024 1:18 PM EDT Nirali Bowser [facility] LAB BLOOD ORDERABLES Final Resul t Performing Organization Address [facility] Co de Phone Number [facility] [address] [place] [phone] [phone] * Basic Metabolic Panel (10/28/2024 10:59 AM EDT) Sodium 143 135 - 145 mmol/L [facility] Potassium 4.2 3.3 - 5.1 mmol/L [facility] Chloride 106 96 - 108 mmol/L [facility] Carbon Dioxide 28 22 - 29 mmol/L [facility] Anion Gap 13 12 - 20 [facility] Urea Nitrogen (BUN) 10 9 - 16 mg/dL [facility] Creatinine, Serum 0.69 0.5 - 1.4 mg/dL [facility] Estimated Glomerular Filt Rate >60 [facility] Comment:Chronic Kidney Disea se: Estimated GFR < 60 mL/min/1.55u0Ctijma Kidney Disease: Estimated GFR < 15 mL/min/1.73m2 Glucose 102 60 - 115 mg/dL [facility] Calcium 9.5 8.4 - 10.2 mg/dL [facility] Blood Venous blood specimen / Unknown 10/28/2024 10:59 AM EDT 10/28/2024 1:18 PM EDT Nirali Bowser ANP LAB BLOOD ORDERABLES Final Resul t Performing Organization Address [facility] Co de Phone Number [facility] [address] [place] [address] [phone] * (ABNORMAL) POCT HGB A1C (10/24/2024 1:09 PM EDT) Hemoglobin A1C 6.6(A) 4.0 - 5.7 % QC Media Lot # [id number] Lot# Expiration Date Blood 10/24/2024 1:09 PM EDT Nirali BHAKTA POINT OF CARE TEST ENTER/EDIT OR DERABLES Final Result * POCT Glucose (10/24/2024 1:08 PM EDT) Glucose Blood, POC 115 60 - 200 mg/dL QC Media Lot # [id number] Lot# Expiration Date [id number] Blood Capillary blood specimen / Unknown 10/24/2024 1:08 PM EDT Nirali Bowser ANP POINT OF CARE TEST ENTER/EDIT OR DERABLES Final Result * BI Mammogram Screening Tomosynthesis Bilateral (06/18/2024 11:05 AM EDT) Anatomical Region Laterality Modality Breast Bilateral Mammography 06/18/2024 11:0 5 AM EDT Narrative 06/23/2024 6:47 PM EDT [facility] [address] [place] [address] Mammography Report Signed Patient: Sherry Ferguson I MR#: [id number] 6 : 1965 Acct:[id number] Age/Sex: 58 / F ADM Date: 06/18/24 Loc: HO.MAMMO Attending Dr: Nirali Bowser NP Ordering Physician: NIRALI BOWSER NP Results: 1Negative Date of Service: 06/18/24 Follow Up: 1 Year From [facility] Mammogram Procedure(s): MM tomosynthesis screening BI Accession Number(s): [id number] cc: NIRALI BOWSER NP EXAMINATION: MM SCREENING [...] 06/23/24 1844 DD/ 1105 TD/TT: 06/18/24 1123 Employee Communications Specialist: Procedure Note Donotuseinterpreter, Image - 06/23/2024 [facility] [address] [place] [address] Mammography Report Signed Patient: Sherry Ferguson IMR#: [id number] 6 : 1965Acct:[id number] Age/Sex: 58 / FADM Date: 06/18/24 Loc: HO.MAMMO Attending Dr: Nirali Bowser NP Ordering Physician: NIRALI BOWSER NPResults: 1Negative Date of Service: 06/18/24Follow Up: 1 Year From Orig inal Mammogram Procedure(s): MM tomosynthesis screening BI Accession Number(s): [id number] cc: NIRALI BOWSER NP EXAMINATION: MM SCREENING [...] 06/23/24 1844 DD/ 1105 TD/TT: 06/18/24 1123 Employee Communications Specialist: us Nirali BHAKTA IMG BI PROCEDURES Edited Result - Final * HPV mRNA E6/E7 w/Reflex to HPV Genotypes 16, 18/45 (06/26/2023 1:05 PM EDT) HPV nRNA E6/E7 Not Detected Not Detected [facility] Comment:Methodology: Transcr iption-Mediated AmplificationThis assay detects E6/E7 viral messenger RNA (mRNA) from 14high-risk HPV types (16,18,31,33,35,39,45,51,52,56,58,59,66,68).Cervical sources are required for HPV testing.If a vaginal source from a patient who has had atotal hysterectomy with removal of cervix wassubmitted, please contact the testing laboratoryfor alternative testing options.For additional information, please refer tohttp://education.SpotlessCity/faq/BIX834e8(This link if provided for information/educational purposes only.)THIS TEST WAS PERFORMED AT:[facility] [place] [phone] GONZALEZ MD HPV mRNA E6/E7 [facility] HPV 16 RNA [facility] HPV 18/45 RNA [facility] 06/26/2023 1:05 PM EDT 06/27/2023 2:00 PM EDT Gabriela Noriega CNM LAB CYTOLOGY ORDERABLES F inal Result [facility] [address] [place] [phone] * Pap Smear (06/26/2023 1:05 PM EDT) Swab Cervix uteri structure / Unknown 06/26/2023 1:05 PM EDT 06/27/2023 2:00 PM EDT Narrative [facility] - 07/10/2023 10:51 AM EDT ----- ------- Name: Sherry Ferguson I Age/Sex: 57/F : 1965 Unit#: [id number] Attend Dr: NIRALI BOWSER NP Re06/26/23 Status: DEP REF Location: [facility] Disch: ----- ------- SPEC : [id number] RECD: 06/27/23-1400 STATUS: ANGELA REPayam NUM: [id number] ZE: 06/26/23-[address] [facility] [address]: GABRIELA NORIEGA [facility] EN[facility]ED: 06/27/23-1125 SP TYPE: Pap Smr OT DR: ORDERED: Pap Smear Interpretation Satisfactory for evaluation. Negative for intraepithelial lesion or malignancy. HPV mRNA E6/E7: NOT DETECTED This assay detects E6/E7 viral messenger RNA (mRNA) from 14 high-risk HPV types (16, 18, 31, 33, 35, 39, 45, 51, 52, 56, 58, 59, 66, 68) HPV testing performed by [facility], [place], [place]. See reference laboratory portion of the EMR for entire report. Clinical Information LMP: Postmenopausal Previous PAP test: 2019, WNL Material Received ThinPrep-Vaginal/Cervical ----- ------- Signed (signature on file) LATOYA Curran (ASCP) 07/10/23 1051 ----- ------- END OF REPORT Gabriela Noriega [facility] CYTOLOGY ORDERABLES F inal Result [facility] [address] [place] [phone] * Colonoscopy (10/29/2021) Colonoscopy Normal Normal Narrative Татьяна Thomason - 10/29/2021 Recommended repeat colonoscopy in 2 years poor prep Historical Provider HEALTH MAINTENANCE Edited Result - Final * HEPATITIS C AB W/REFL TO HCV RNA, QN, PCR (06/25/2020 12:08 PM EDT) HEPATITIS C ANTIBODY NON-REACT CANDE NON-REACT [facility] INDEX 0.02 <1.00 [facility] Comment: HCV antibody was non-reactive. There is no laboratory evidence of HCV infection. In most cases, no further action is required. However, if recent HCV exposure is suspected, a test for HCV RNA (test code 90184) is suggested. For additional information please refer to http://[employer].SpotlessCity/faq/NHR97w4 (This link is being provided for informational/ educational purposes only.) 06/25/2020 12:0 8 PM EDT us Jose Villa MD HISTORICAL/NON ORDERABLE LABS Fi nal Result [facility] [address] from Last 3 Months or Most Recently Relevant to Health Maintenance Insurance [facility] < 64 [place] [phone] [facility] Care Teams Marble Setter Helper Relationship Specialty Start Date End Date Nirali Bowser ANP [address] [place] [phone] PCP - General Family Medicine 05/05/22
[2024-11-19 17:39] LABS: Appearance Urine Clear; Glucose Urine UA Negative (Negative); PH 5.5 (5.0-9.0); Specific Gravity - Urine 1.010 (1.005-1.025); UMIC TRIGGER UACC YES
[2024-11-19 17:41] LABS: UACC Culture Trigger YES
== END 2024-11-19 15:47 | disposition home or self-care (01) ==
LOC: HO.HHCL 15:46
PROVIDERS: PCP Nurse Practitioner Primary Care; Visit Provider Internal Medicine Geriatric Medicine
DX: R35.0 Frequency of micturition (principal)
CPT/HCPCS: 81001; 87086

== ENCOUNTER 2024-11-20 13:08 | Outpatient (REF) | payer OTHER, SELFPAY ==
--- OUTSIDE RECORDS SUMMARY | 2024-11-19 15:40 | XMS_ITS | Encounter Summary ---
Author Organization [employer] Address [address] [facility] 7t [place] [address] Care Team Providers Care Sap Abap Programmer Name Role Phone Nirali Bowser Primary Care Provider [phone] Reason for Visit * Reason Comments Hip Pain Encounter Details Date Type Department Care Team (Late st Contact Info) Description 11/19/2024 3:40 PM EDT Office Visit [facility] WALK-IN [address] [phone] Name, MD Derrell [address] [place] [address] Essential hypertension (Primary Dx); Chronic right hip [...] Time Provider Department Center 11/19/2024 3:40 PM [facility] WALK-IN CLINIC 1 WALK-IN [facility] 11/25/2024 1:30 PM [facility] GREEN TEAM NURSE MEDICINE [facility] 01/14/2025 3:00 PM Lise Rogers ADLT DENT [facility] documented in this encounter Plan of Treatment Upcoming Encounters Date Type Department Care Team (Late st Contact Info) Description 11/25/2024 1:30 PM EDT Clinical Support [facility] MEDICINE [address] [place] [address] 01/14/2025 3:00 PM EDT Office Visit [facility] ADULT DENTAL [address] [place] [address] Lise Rogers [address] [place] [address] documented as of this encounter Procedures Procedure Name Priority Date/Time Associated Diagnosis Comments XR HIP 2 OR 3 VIEWS RIGHT Routine 11/20/2024 1:23 PM EDT Chronic right hip pain URINALYSIS, COMPLETE, WITH REFLEX TO CULTURE Routine 11/19/2024 4:09 PM EDT Urination frequency documented in this encounter Results * XR Hip 2 or 3 Views Right (11/20/2024 1:23 PM EDT) Anatomical Region Laterality Modality Lower Extremities, Hip Right Radiograp hic Imaging 11/20/2024 1:23 PM EDT Narrative 11/20/2024 2:21 PM EDT [facility] [address] [place] [address] XRay Report Signed Patient: Sherry Ferguson I MR#: [id number] 6 : 1965 Acct:[id number] Age/Sex: 59 / F ADM Date: 11/20/24 Loc: HO.HHCX Attending Dr: Nirali Bowser NP Ordering Physician: Derrell Gilliam MD Date of Service: 11/20/24 Procedure(s): XR hip RT min 2V Accession Number(s): [id number] cc: Derrell Gilliam MD; NIRALI BOWSER NP Reason for Exam: Chronic right hip/groin pain EXAMINATION: XR HIP, RIGHT CLINICAL INFORMATION: Chronic right hip/groin pain COMPARISON: None available. TECHNIQUE: Two views of the right hip. FINDINGS: No fracture. Alignment is anatomic. Hip joint space is maintained. Normal acetabular coverage. Soft tissues are unremarkable. XR/XR hip RT min 2V IMPRESSION: Normal right hip. Electronically signed by: Talha Frey MD 11/20/2024 02:18 PM EDT Dictated By: Talha Frey MD Signed By: <Electronically signed by Talha Frey MD in OV> 11/20/24 1418 DD/ 1323 TD/TT: 11/20/24 1400 Abatement Worker: Procedure Note Donotuseinterpreter, Image - 11/20/2024 [place] [address] XRay Report Signed Patient: Sherry Ferguson IMR#: [id number] 6 : 1965Acct:[id number] Age/Sex: 59 / FADM Date: 11/20/24 Loc: HO.HHCX Attending Dr: Nirali Bowser NP Ordering Physician: Derrell Gilliam MD Date of Service: 11/20/24 Procedure(s): XR hip RT min 2V Accession Number(s): [id number] cc: Derrell Gilliam MD; NIRALI BOWSER NP Reason for Exam: Chronic right hip/groin pain EXAMINATION: XR HIP, RIGHT CLINICAL INFORMATION: Chronic right hip/groin pain COMPARISON: None available. TECHNIQUE: Two views of the right hip. FINDINGS: No fracture. Alignment is anatomic. Hip joint space is maintained. Normal acetabular coverage. Soft tissues are unremarkable. XR/XR hip RT min 2V IMPRESSION: Normal right hip. Electronically signed by: Talha Frey MD 11/20/2024 02:18 PM EDT Dictated By: Talha Frey MD Signed By: <Electronically signed by Talha Frey MD in OV> 11/20/24 1418 DD/ 1323 TD/TT: 11/20/24 1400 Abatement Worker: us Derrell Gilliam MD IMG XR PROCEDURES Final Result * (ABNORMAL) Urinalysis, Complete, with Reflex to Culture (11/19/2024 4:09 PM EDT) Color Urine Yellow [facility] Appearance Urine Clear [facility] PH 5.5 5.0 - 9.0 [facility] Glucose Urine UA Negative Negative mg/dL [facility] Urine Blood Negative Negative [facility] Specific [place] - Urine 1.010 1.005 - 1.025 [facility] Urine Protein Negative Neg-Trace mg/dL [facility] Urine Ketones Negative Negative mg/dL [facility] Nitrite Urine Negative Negative [facility] Leukocyte Esterase Urine Small (1+)(A) Negative [facility] RBC Urine 0-2 0 - 2 /HPF [facility] Urine WBC 6-10(A) 0 - 5 /HPF [facility] Urine Squamous Epithelial Cell 0-2 0 - 2 /HPF [facility] Urine Bacteria None Seen None Seen [facility] Hyaline Casts, Urine 0-2 0 - 2 /LPF [facility] Urine 11/19/2024 4:09 PM EDT 11/19/2024 5:36 PM EDT Narrative [facility] - 11/19/2024 5:41 PM EDT [id number], Clean Catch us Derrell Gilliam MD LAB URINE ORDERABLES Final Resul t [facility] [address] [place] [address] [phone] documented in this encounter Visit Diagnoses Diagnosis Essential hypertension- Primary Unspecified essential hypertension Chronic right hip pain Urination frequency Urinary frequency documented in this encounter Additional Health Concerns Assessment Noted Time PHQ-9 Depression Total Score: 17 024 4:07 PM EDT documented as of this encounter Care Teams Sap Abap Programmer Relationship Specialty Start Date End Date Nirali Bowser ANP [address] [place] [address] PCP - General Family Medicine 05/05/22 documented as of this encounter
--- NOTE | ~2024-11-20 | XR_ITS ---
EXAMINATION: XR HIP, RIGHT CLINICAL INFORMATION: Chronic right hip/groin pain COMPARISON: None available. TECHNIQUE: Two views of the right hip. FINDINGS: No fracture. Alignment is anatomic. Hip joint space is maintained. Normal acetabular coverage. Soft tissues are unremarkable. XR/XR hip RT min 2V IMPRESSION: Normal right hip. Electronically signed by: Talha Frey MD 11/20/2024 02:18 PM EDT
--- OUTSIDE RECORDS SUMMARY | 2024-11-20 15:27 | XMS_ITS | Clinical Summary ---
Author Organization [employer] Address [address] [facility] 7t [place] [address] Care Team Providers Care Rattlesnake Farmer Name Role Phone Nirali Bowser Primary Care Provider [phone] Allergies Active Allergy Reactions Criticality Noted Date Comments Cetirizine Headache,Anxiety Low 05/24/2019 Pravastatin Other Low 03/02/2023 Change in taste Medications Blood Glucose Monitoring Suppl (FreeStyle Lite) w/Device kit 10/20/19 22 Active Calcium Carb-Cholecalc iferol 600-10 MG-MCG tablet Take 1 capsule by mouth in the morning. 01/31/20 17 Active FreeStyle lancetsIndicat ions:Hypertens ion associated with diabetes ([facility]) 1 each by Other route 2 times daily. 100 each 11/19/19 23 Active FREESTYLE LITE test stripIndicatio ns:Hypertensio n associated with diabetes ([facility]) Twice daily as needed 100 each 11/19/19 23 Active Alcohol Swabs padsIndication s:Type 2 diabetes mellitus with hyperglycemia, without long-term current use of insulin ([facility]) 1 each if needed (to clean skin). 100 each 11/19/19 23 Active glucose blood test stripIndicatio ns:Type 2 diabetes mellitus with hyperglycemia, without long-term current use of insulin ([facility]) 1 each by Other route 2 times daily. 100 each 12/01/19 23 Active Blood Glucose Monitoring Suppl (FreeStyle Hardy Lite) w/Device kitIndications :Type 2 diabetes mellitus with hyperglycemia, without long-term current use of insulin ([facility]) Use to test blood sugar 3 times [...] complication, without long-term current use of insulin ([facility]) Take 1 tablet (10 mg) by mouth at bedtime. 90 tablet 3 11/22/19 24 025 Discontinued(Re order (will not trigger notification to Pharmacy)) lisinopril 5 MG tabletIndicati ons:Type 2 diabetes mellitus with hyperglycemia, without long-term current use of insulin ([facility]) TAKE 1 TABLET BY MOUTH EVERY MORNING [...] complication, without long-term current use of insulin ([facility]) Take 1 tablet (20 mg) by mouth [...] Encounters Date Type Department Care Team Description 11/20/2024 Results Follow-Up [facility] [address] [place] [address] [place] [address] Derrell Gilliam MD XR Hip 2 or 3 Views Right 11/19/2024 3:40 PM EDT Office Visit [facility] [address] [place] [phone] Derrell Gilliam MD Essential hypertension (Primary Dx); Chronic right hip pain; Urination frequency 11/19/2024 Orders Only [address] [facility] [place] [address] Derrell Gilliam MD 11/19/2024 Travel 11/11/[address] [address] Nirali Bowser ANP Medication Question 11/05/2024 Results Follow-Up [address] [address] Nirali Bowser ANP Albumin, Random Urine W/Creatinine, Basic Metabolic Panel 10/28/[address] [address] Nirali Bowser ANP 10/28/[address] [address] Renea Melara, collective bargaining specialist Question 10/24/2024 1:00 PM EDT Office Visit [address] [address] Nirali Bowser ANP Type 2 diabetes mellitus with hyperlipidemia (CMS/HCC) (CMS/HCC) (Primary Dx); Vitamin D deficiency; Hypertensive retinopathy of both eyes; Hypertension associated with diabetes (CMS/HCC) 10/24/2024 Travel 10/16/2024 Patient Outreach [address] [address] Nirali Bowser ANP Pre-visit Planning (SDOH screening was completed on 06/11/2024) 09/26/2024 2:00 PM EDT Office Visit [facility] [address] [place] [address] Lise Rogers Gingival bleeding (Primary Dx); Dental calculus; Periodontal disease; Acute gingival inflammation 08/22/2024 2:00 PM EDT Office Visit [facility] [address] [place] [address] Lise Rogers Periodontal disease (Primary Dx); Dental [...] Description 11/25/2024 1:30 PM EDT Clinical Support [facility] [address] [place] [address] 01/14/2025 3:00 PM EDT Office Visit [facility] [address] [place] [address] Lise Rogers [address] [place] [address] Health Maintenance Due Date Last Done Comments [...] SDOH Screening 06/11/2025 06/11/2024 Mammogram 06/18/2025 06/18/2024, 0308/2023, 06/07/2022, Additional history exists Diabetes: Foot Exam 06/21/2025 06/21/2024, 06/21/2024, 06/21/2024, Additional history exists Dental X-Ray: Bitewings 07/06/2025 07/06/19 25, 10/31/2023, 09/13/2021, Additional history exists Diabetes: Urine Protein Screening 10/28/2025 10/28/2024, 12/02/2022, 07/22/2021, Additional history exists Lipid Panel 10/28/2025 10/28/2024, 06, 12/02/2022, Additional history exists Tobacco Screening 11/19/2025 [...] 1:23 PM EDT Chronic right hip pain CULTURE, URINE, ROUTINE Routine 11/19/2024 5:53 PM EDT URINALYSIS, COMPLETE, WITH REFLEX TO CULTURE Routine 11/19/2024 4:09 PM EDT Urination frequency VITAMIN D,25-OH,TOTAL,IA Routine 10/28/2024 10:59 AM EDT Vitamin D deficiency LIPID PANEL, STANDARD Routine 10/28/2024 10:59 AM EDT Type 2 diabetes mellitus with hyperlipidemia (CMS/HCC) ([facility]) BASIC METABOLIC PANEL Routine 10/28/2024 10:59 AM EDT Hypertension associated with diabetes (CMS/HCC) ALBUMIN, RANDOM URINE W/CREATININE Routine 10/28/2024 10:59 AM EDT Hypertension associated with diabetes (CMS/HCC) POCT GLYCATED HEMOGLOBIN, TOTAL Routine 10/24/2024 1:09 PM EDT Type 2 diabetes mellitus with hyperlipidemia (CMS/HCC) ([facility]) POCT GLUCOSE Routine 10/24/2024 1:08 PM EDT Type 2 diabetes mellitus with hyperlipidemia (CMS/HCC) (CMS/[facility]) CASE PRESENTATION, DETAILED AND EXTENSIVE TREATMENT PLANNING [...] Routine 07/05/2024 10:00 AM EDT Fractured dental druze with loss of material Periodontal disease Dental [...] Recently Relevant to Health Maintenance Results * XR Hip 2 or 3 Views Right (11/20/2024 1:23 PM EDT) Anatomical Region Laterality Modality Lower Extremities, Hip Right Radiograp hic Imaging 11/20/2024 1:23 PM EDT Narrative 11/20/2024 2:21 PM EDT [address] [address] XRay Report Signed Patient: Sherry Ferguson I MR#: [id number] 6 : 1965 Acct:[id number] Age/Sex: 59 / F ADM Date: 11/20/24 Loc: HO.HHCX Attending Dr: Nirali Bowser NP Ordering Physician: Derrell Gilliam MD Date of Service: 11/20/24 Procedure(s): XR hip RT min 2V Accession Number(s): [id number] cc: Derrell Gilliam MD; NIRALI BOWSER NP [...] Talha Frey MD 11/20/2024 02:18 PM EDT RP Dictated By: Talha Frey MD Signed By: <Electronically signed by Talha Frey MD in OV> 11/20/24 1418 DD/ 1323 TD/TT: 11/20/24 1400 Grey Tender: Procedure Note Donotuseinterpreter, Image - 11/20/2024 [place] [address] XRay Report Signed Patient: Sherry Ferguson IMR#: [id number] 6 : 1965Acct:[id number] Age/Sex: 59 / FADM Date: 11/20/24 Loc: HO.HHCX Attending Dr: Nirlai Bowser NP Ordering Physician: Derrell Gilliam MD Date of Service: 11/20/24 Procedure(s): XR hip RT min 2V Accession Number(s): [id number] cc: Derrell Gilliam MD; NIRALI BOWSER NP [...] Talha Frey MD 11/20/2024 02:18 PM EDT RP Dictated By: Talha Frey MD Signed By: <Electronically signed by Talha Frey MD in OV> 11/20/24 1418 DD/ 1323 TD/TT: 11/20/24 1400 Grey Tender: us Derrell Gilliam MD IMG XR PROCEDURES Final Result * (ABNORMAL) Urinalysis, Complete, with Reflex to Culture (11/19/2024 4:09 PM EDT) Color Urine Yellow [facility] Appearance Urine Clear [facility] PH 5.5 5.0 - 9.0 [facility] Glucose Urine UA Negative Negative mg/dL [facility] Urine Blood Negative Negative [facility] Specific [place] - Urine 1.010 1.005 - 1.025 [facility] Urine Protein Negative Neg-Trace mg/dL [facility] Urine Ketones Negative Negative mg/dL [facility] Nitrite Urine Negative Negative [facility] Leukocyte Esterase Urine Small (1+)(A) Negative [facility] RBC Urine 0-2 0 - 2 /HPF [facility] Urine WBC 6-10(A) 0 - 5 /HPF [facility] Urine Squamous Epithelial Cell 0-2 0 - 2 /HPF [facility] Urine Bacteria None Seen None Seen [facility] Hyaline Casts, Urine 0-2 0 - 2 /LPF [facility] Urine 11/19/2024 4:09 PM EDT 11/19/2024 5:36 PM EDT Narrative [facility] - 11/19/2024 5:41 PM EDT [id number], Clean Catch us Derrell Gilliam MD LAB URINE ORDERABLES Final Resul t [facility] [address], [place] [phone] * Vitamin D, 25-Hydroxy, Total, Immunoassay (10/28/2024 10:59 AM EDT) Vitamin D 25-OH Total 46.1 >30 ng/mL [facility] Comment: Health Based Reference Values*< 20 ng/mL Lekweomnw34-58 ng/mL Insufficient> 30 ng/mL Sufficient*Kee LABOY. N [...] 10:59 AM EDT 10/28/2024 1:18 PM EDT us Nirali Bowser ANP LAB BLOOD ORDERABLES Final Resul t Performing Organization Address City/State/[facility] Co de Phone Number [facility] [address] [place] [phone] * Albumin, Random Urine W/Creatinine (10/28/2024 10:59 AM EDT) Creatinine, Urine 155.65 mg/dL [facility] Microalbumin Urine 14.0 mg/L [facility] Microalbum Creatinine Ratio Ur 8.9 <30 ug/mg cr [facility] Comment:Albumin/Creatinine R atio Reference Ranges: Normal: < 30 ug/mg creatinine Microalbuminuria: 30 - 300 ug/mg creatinineClinical Albuminuria: > 300 ug/mg creatinine Urine 10/28/2024 10:5 9 AM EDT 10/28/2024 12:52 PM EDT us Nirali Bowser ANP LAB URINE ORDERABLES Final Resul t Performing Organization Address City/State/[facility] Co de Phone Number [facility] [address] [place] [phone] [phone] * (ABNORMAL) Lipid Panel, Standard (10/28/2024 10:59 AM EDT) Triglycerides 231(H) <150 mg/dL [facility] Comment:Desirable Triglyceri de: less than 150 mg/dLBorderline High Triglyceride 150-199 mg/dLHigh Triglyceride: 200-499 mg/dLVery High Triglyceride: greater than or equal to 5OO mg/dL Cholesterol 209(H) <200 mg/dL [facility] Comment:Desirable Cholestero l: less than 200 mg/dLBorderline High Cholesterol: 200-239 mg/dLHigh Cholesterol: greater than 239 mg/dL LDL Cholesterol Calculated 110(H) <100 mg/dL [facility] Comment:Desirable LDL: less than 100 mg/dLNear Optimal/Above Optimal LDL: 110- 129 mg/dLBorderline High LDL: 130-159 mg/dLHigh LDL: 160-189 mg/dLVery High LDL: greater than or equal to 190 mg/dL HDL Cholesterol 53 >40 mg/dL [facility] Comment:Desirable HDL: great er than 40 mg/dL Note: This HDL assay may give artificially low results in patients with liver disease. Blood Venous blood specimen / Unknown 10/28/2024 10:59 AM EDT 10/28/2024 1:18 PM EDT [facility] LAB BLOOD ORDERABLES Final Resul t Performing Organization Address [facility]/ZIP Co de Phone Number [facility] [address] [place] [phone] [phone] * Basic Metabolic Panel (10/28/2024 10:59 AM EDT) Sodium 143 135 - 145 mmol/L [facility] Potassium 4.2 3.3 - 5.1 mmol/L [facility] Chloride 106 96 - 108 mmol/L [facility] Carbon Dioxide 28 22 - 29 mmol/L [facility] Anion Gap 13 12 - 20 [facility] Urea Nitrogen (BUN) 10 9 - 16 mg/dL [facility] Creatinine, Serum 0.69 0.5 - 1.4 mg/dL [facility] Estimated Glomerular Filt Rate >60 [facility] Comment:Chronic Kidney Disea se: Estimated GFR < 60 mL/min/1.30h3Vxptoc Kidney Disease: Estimated GFR < 15 mL/min/1.73m2 Glucose 102 60 - 115 mg/dL [facility] Calcium 9.5 8.4 - 10.2 mg/dL [facility] Blood Venous blood specimen / Unknown 10/28/2024 10:59 AM EDT 10/28/2024 1:18 PM EDT us Nirali BHAKTA LAB BLOOD ORDERABLES Final Resul t [facility] [address] [place] [phone] * (ABNORMAL) POCT HGB A1C (10/24/2024 1:09 PM EDT) Hemoglobin A1C 6.6(A) 4.0 - 5.7 % QC Media Lot # [id number] Lot# Expiration Date Blood 10/24/2024 1:09 PM EDT us Nirali Bowser ANP POINT OF CARE TEST ENTER/EDIT OR DERABLES Final Result * POCT Glucose (10/24/2024 1:08 PM EDT) Glucose Blood, POC 115 60 - 200 mg/dL QC Media Lot # [id number] Lot# Expiration Date 008 Blood Capillary blood specimen / Unknown 10/24/2024 1:08 PM EDT us Nirali BHAKTA POINT OF CARE TEST ENTER/EDIT OR DERABLES Final Result * BI Mammogram Screening Tomosynthesis Bilateral (06/18/2024 11:05 AM EDT) Anatomical Region Laterality Modality Breast Bilateral Mammography 06/18/2024 11:0 5 AM EDT Narrative 06/23/2024 6:47 PM EDT [facility] [address] [place], [place] [address] Mammography Report Signed Patient: Sherry Ferguson I MR#: [id number] 6 : 1965 Acct:[id number] Age/Sex: 58 / F ADM Date: 06/18/24 Loc: HO.MAMMO Attending Dr: Nirali Bowser NP Ordering Physician: NIRALI BOWSER NP Results: 1Negative Date of Service: 06/18/24 Follow Up: 1 Year From Orig inal Mammogram Procedure(s): MM tomosynthesis screening BI Accession Number(s): [id number] cc: NIRALI BOWSER NP EXAMINATION: MM SCREENING [...] 06/23/24 1844 DD/ 1105 TD/TT: 06/18/24 1123 Grey Tender: Procedure Note Donotuseinterpreter, Image - 06/23/2024 [facility] [address] [place] [address] Mammography Report Signed Patient: Sherry Ferguson [facility]#: [id number] 6 : 1965Acct:[id number] Age/Sex: 58 / FADM Date: 06/18/24 Loc: HO.MAMMO Attending Dr: Nirali Bowser SUPERVISOR INTELLIGENCE ANALYST Ordering Physician: NIRALI BOWSER NPResults: 1Negative Date of Service: 06/18/24Follow Up: 1 Year From Orig inal Mammogram Procedure(s): MM tomosynthesis screening BI Accession Number(s): [id number] cc: NIRALI BOWSER NP EXAMINATION: MM SCREENING [...] 06/23/24 1844 DD/ 1105 TD/TT: 06/18/24 1123 Grey Tender: Nirali Bowser ANP IMG BI PROCEDURES Edited Result - Final * HPV mRNA E6/E7 w/Reflex to HPV Genotypes 16, 18/45 (06/26/2023 1:05 PM EDT) HPV nRNA E6/E7 Not Detected Not Detected [facility] Comment:Methodology: Transcr iption-Mediated AmplificationThis assay detects E6/E7 viral messenger RNA (mRNA) from 14high-risk HPV types (16,18,31,33,35,39,45,51,52,56,58,59,66,68).Cervical sources are required for HPV testing.If a vaginal source from a patient who has had atotal hysterectomy with removal of cervix wassubmitted, please contact the testing laboratoryfor alternative testing options.For additional information, please refer tohttp://education.[employer]/faq/WHU326a0(This link if provided for information/educational purposes only.)THIS TEST WAS PERFORMED AT:[employer] [place] [phone] GONZALEZ MD HPV mRNA E6/E7 [facility] HPV 16 RNA [facility] HPV 18/45 RNA [facility] 06/26/2023 1:05 PM EDT 06/27/2023 2:00 PM EDT us Gabriela Noriega [facility] CYTOLOGY ORDERABLES F inal Result [facility] [address] [place] [phone] * Pap Smear (06/26/2023 1:05 PM EDT) Swab Cervix uteri structure / Unknown 06/26/2023 1:05 PM EDT 06/27/2023 2:00 PM EDT Narrative [facility] - 07/10/2023 10:51 AM EDT ----- ------- Name: Sherry Ferguson I Age/Sex: 57/F : 1965 Unit#: [id number] Attend Dr: NIRALI BOWSER NP Re06/26/23 Status: DEP REF Location: [facility] Disch: ----- ------- SPEC : [id number] RECD: 06/27/23-1399 STATUS: ANGELA HADDAD NUM: [id number] ZE: 06/26/23-[address] [facility] [address]: GABRIELA NORIEGA [facility] ENTERED: 06/27/23-1446 SP TYPE: Pap Smr OTHR DR: ORDERED: Pap Smear Interpretation Satisfactory for evaluation. Negative for intraepithelial lesion or malignancy. HPV mRNA E6/E7: NOT DETECTED This assay detects E6/E7 viral messenger RNA (mRNA) from 14 high-risk HPV types (16, 18, 31, 33, 35, 39, 45, 51, 52, 56, 58, 59, 66, 68) HPV testing performed by [facility], [place], [place]. See reference laboratory portion of the EMR for entire report. Clinical Information LMP: Postmenopausal Previous PAP test: 2019, WNL Material Received ThinPrep-Vaginal/Cervical ----- ------- Signed (signature on file) LATOYA Curran (ASCP) 07/10/23 1051 ----- ------- END OF REPORT Gabriela Noriega [facility] CYTOLOGY ORDERABLES F inal Result [facility] [address] [place] [phone] * Colonoscopy (10/29/2021) Colonoscopy Normal Normal Narrative Татьяна Thomason - 10/29/2021 Recommended repeat colonoscopy in 2 years poor prep Historical Provider HEALTH MAINTENANCE Edited Result - Final * HEPATITIS C AB W/REFL TO HCV RNA, QN, PCR (06/25/2020 12:08 PM EDT) HEPATITIS C ANTIBODY NON-REACT CANDE NON-REACT CANDE [facility] INDEX 0.02 <1.00 [facility] Comment: HCV antibody was non-reactive. There is no laboratory evidence of HCV infection. In most cases, no further action is required. However, if recent HCV exposure is suspected, a test for HCV RNA (test code 84125) is suggested. For additional information please refer to http://education.[employer].Soceaniq/faq/EVU23x5 (This link is being provided for informational/ educational purposes only.) 06/25/2020 12:0 8 PM EDT Jose Villa MD HISTORICAL/NON ORDERABLE LABS Fi nal Result [facility] [address] from Last 3 Months or Most Recently Relevant to Health Maintenance Insurance [facility] < 65 DENTAL [facility] Care Teams Rattlesnake Farmer Relationship Specialty Start Date End Date Nirali Bowser ANP [address] [place] [phone] PCP - General Family Medicine 05/05/22
--- OUTSIDE RECORDS SUMMARY | 2024-11-20 15:27 | XMS_ITS | Encounter Summary ---
Author Organization [email or web address] Address [address] [facility] [address] [place] [address] Care Team Providers Care Fundraising Coordinator Name Role Phone Anna Singh Primary Care Provider [phone] Reason for Visit * Reason Onset Date Comments Medication Question 11/18/2022 Encounter Details Date Type Department Care Team (Special Care Hospital Contact Info) Description 11/18/2022 Telephone [facility] [address] [place], [place] [phone] Anna Singh ANP [address] [place] [address] Medication Question Social History Tobacco Use Types [...] 11/18/2022 12:45 PM EDT Michael Menjivar from [facility] calling to inform script that was sent for Alcohol Swabs pads needsdirections. documented in this encounter Plan of Treatment Upcoming Encounters Date Type Department Care Team (Special Care Hospital Contact Info) Description 11/25/2024 1:30 PM EDT Clinical Support [facility] [address] [place] [address] 01/14/2025 3:00 PM EDT Office Visit [facility]ULT [facility] [address] [place] [address] Michael Rogersaris [address] [place] [address] documented as of this encounter Visit Diagnoses Not on filedocumented in this encounter Additional Health Concerns Assessment Noted Time PHQ-9 Depression Total Score: 14 023 2:33 PM EDT documented as of this encounter Care Teams Fundraising Coordinator Relationship Specialty Start Date End Date Anna Singh ANP [address] [place] [address] PCP - General Family Medicine 05/05/22 documented as of this encounter
--- OUTSIDE RECORDS SUMMARY | 2024-11-20 15:27 | XMS_ITS | Encounter Summary ---
Author Organization [employer] Address [address] [facility] [address] 7t [place] [address] Care Team Providers Care Evp And Chief Operating Officer Name Role Phone Anna Singh Primary Care Provider [phone] Encounter Details Date Type Department Care Team [...] Description 11/25/2024 1:30 PM EDT Clinical Support [facility] [address] [place] [address] 01/14/2025 3:00 PM EDT Office Visit [facility] AD[facility] [address] [place] [address] Lise Rogers [address] [place] [address] documented as of this encounter Visit Diagnoses Not on filedocumented in this encounter Additional Health Concerns Assessment Noted Time PHQ-9 Depression Total Score: 17 024 4:07 PM EDT documented as of this encounter Care Teams Evp And Chief Operating Officer Relationship Specialty Start Date End Date Anna Singh ANP [address] [place] [address] PCP - General Family Medicine 05/05/22 documented as of this encounter
--- OUTSIDE RECORDS SUMMARY | 2024-11-20 15:27 | XMS_ITS | Encounter Summary ---
Author Organization [employer] Address [address] [facility] 7t [place] [address] Care Team Providers Care Mat Weaver Name Role Phone Anna Singh Primary Care Provider [phone] Reason for Visit * Reason Onset Date Comments Med Refill 01/17/2023 Encounter Details Date Type Department Care Team (Late st Contact Info) Description 01/17/2023 Telephone [facility] MEDICINE [address] [place], [place] [phone] Anna Singh ANP [address] [place], [place] [phone] Med Refill Social History Tobacco Use Types [...] t he electric, gas, oil or water [employer] threatened to shut off services in your [...] Description 11/25/2024 1:30 PM EDT Clinical Support [facility] [address] [place] [address] 01/14/2025 3:00 PM EDT Office Visit [facility] ADULT DENTAL [address] [place] [address] Ken, Lise [address] [place] [address] documented as of this encounter Visit Diagnoses Not on filedocumented in this encounter Additional Health Concerns Assessment Noted Time PHQ-9 Depression Total Score: 14 023 2:33 PM EDT documented as of this encounter Care Teams Mat Weaver Relationship Specialty Start Date End Date Anna Singh ANP [address] [place] [address] PCP - General Family Medicine 05/05/22 documented as of this encounter
--- OUTSIDE RECORDS SUMMARY | 2024-11-20 15:27 | XMS_ITS | Encounter Summary ---
Author Organization [employer] Address [address] [facility] 7t [place] [address] Care Team Providers Care Contact Center Representative Name Role Phone Anna Singh Primary Care Provider [phone] Encounter Details Date Type Department Care Team (Late st Contact Info) Description 11/19/2024 Orders Only [facility] MEDICINE [address] [place], [place] [phone] Name, MD Derrell [address] [place] [address] Social History Tobacco Use Types Packs/Day Years [...] 1:30 PM EDT Clinical Support [facility] [address] [place] [address] 01/14/2025 3:00 PM EDT Office Visit [facility] ADULT DENT[facility] [address] [place] [address] Ken, Lise [address] [place] [address] Pending Results Name Type Priority Associated Diagnoses Date /Time Culture, Urine, Routine Microbiology Routine 11/19/2024 5:53 PM EDT documented as of this encounter Procedures Procedure Name Priority Date/Time Associated Diagnosis Comments CULTURE, URINE, ROUTINE Routine 11/19/2024 5:53 PM EDT documented in this encounter Visit Diagnoses Not on filedocumented in this encounter Additional Health Concerns Assessment Noted Time PHQ-9 Depression Total Score: 17 024 4:07 PM EDT documented as of this encounter Care Teams Contact Center Representative Relationship Specialty Start Date End Date Anna Singh ANP [address] [place] [address] PCP - General Family Medicine 05/05/22 documented as of this encounter
--- OUTSIDE RECORDS SUMMARY | 2024-11-20 15:27 | XMS_ITS | Encounter Summary ---
Author Organization [employer] Address [address] [facility] 7t [place] [address] Care Team Providers Care Helper Animal Laboratory Name Role Phone Anna Singh Primary Care Provider [phone] Encounter Details Date Type Department Care Team (Late st Contact Info) Description 11/20/2024 Results Follow-Up [facility] MEDICINE [address] [place], [place] [phone] Name, MD Derrell [address] [place] [address] XR Hip 2 or 3 Views Right Social History Tobacco Use Types Packs/Day Years [...] Description 11/25/2024 1:30 PM EDT Clinical Support [facility] MEDICINE [address] [place] [address] 01/14/2025 3:00 PM EDT Office Visit [facility] ADULT DENTAL [address] [place] [address] Ken, Lise [address] [place] [address] documented as of this encounter Visit Diagnoses Not on filedocumented in this encounter Additional Health Concerns Assessment Noted Time PHQ-9 Depression Total Score: 17 024 4:07 PM EDT documented as of this encounter Care Teams Helper Animal Laboratory Relationship Specialty Start Date End Date Anna Singh ANP [address] [place] [address] PCP - General Family Medicine 05/05/22 documented as of this encounter
--- OUTSIDE RECORDS SUMMARY | 2024-11-20 15:27 | XMS_ITS | Encounter Summary ---
Author Organization [employer] Address [address] [facility] [address] [place] [address] Care Team Providers Care Fire Tender Name Role Phone Rachana Juarez MD Primary Care Provider Trish Marion Primary Care Provider [phone] Anna Singh Primary Care Provider [phone] Encounter Details Date Type Department Care Team (Latest Contact Info) Description 01/05/2021 Abstract [facility] CONVERSIONS Dental, Provider, DDS Social [...] Description 11/25/2024 1:30 PM EDT Clinical Support [facility] MEDICINE [address] [place] [address] 01/14/2025 3:00 PM EDT Office Visit [facility] ADULT DENTAL [address] [place] [address] KenMichaelLise [address] [place] [address] documented as of this encounter Visit Diagnoses Not on filedocumented in this encounter Care Teams Fire Tender Relationship Specialty Start Date End Date Rachana Juarez MD PCP - General Family Medicine 01/07/19 03/30/22 Trihs Constantino FNP [address] [place] [address] PCP - General Family Medicine 03/31/22 05/04/22 Anna Singh ANP [address] [place] [address] PCP - General Family Medicine 05/05/22 documented as of this encounter
--- OUTSIDE RECORDS SUMMARY | 2024-11-20 15:27 | XMS_ITS | Encounter Summary ---
Author Organization [employer] Address [address] [facility] [address] [place] [address] Care Team Providers Care Customer Resolution Specialist Name Role Phone Rachana Juarez MD Primary Care Provider Trish Marion Primary Care Provider [phone] Anna Singh Primary Care Provider [phone] Encounter Details Date Type Department Care Team (Latest Contact Info) Description 05/15/[address] [facility] CONVERSIONS Dental, Provider, DDS Social History [...] Description 11/25/2024 1:30 PM EDT Clinical Support [facility] MEDICINE [address] [place] [address] 01/14/2025 3:00 PM EDT Office Visit [facility] ADULT DENTAL [address] [place] [address] KenMichaelLise [address] [place] [address] documented as of this encounter Visit Diagnoses Not on filedocumented in this encounter Care Teams Customer Resolution Specialist Relationship Specialty Start Date End Date Rachana Juarez MD PCP - General Family Medicine 01/07/19 03/30/22 Trish Constantino FNP [address] [place] [address] PCP - General Family Medicine 03/31/22 05/04/22 Anna Singh ANP [address] [place] [address] PCP - General Family Medicine 05/05/22 documented as of this encounter
== END 2024-11-20 13:09 | disposition home or self-care (01) ==
LOC: HO.HHCX 13:08
PROVIDERS: PCP Nurse Practitioner Primary Care; Visit Provider Nurse Practitioner Primary Care
DX: M25.551 Pain in right hip (principal); G89.29 Other chronic pain
CPT/HCPCS: 73502

== ENCOUNTER → 2024-11-20 14:02 | Outpatient (BNV) | payer OTHER, SELFPAY | PROVIDERS: PCP Nurse Practitioner Primary Care; Visit Provider Radiology Diagnostic Radiology | DX: M25.551 Pain in right hip (principal); G89.29 Other chronic pain | CPT/HCPCS: 73502 ==

== ENCOUNTER 2025-01-16 15:59 | Outpatient (REF) | payer OTHER, SELFPAY ==
--- OUTSIDE RECORDS SUMMARY | 2025-01-14 15:00 | XMS_ITS | Encounter Summary ---
Author Organization [employer] Address [address] [facility] 7t [place] [address] Care Team Providers Care Manager Training Name Role Phone Anna Singh Primary Care Provider [phone] Reason for Visit * Reason Comments Routine Cleaning 3 months Post-SRP Encounter Details Date Type Department Care Team (Late st Contact Info) Description 01/14/2025 3:00 PM EDT Office Visit [facility] ADULT DENTAL [address] [place], [place] [phone] Michael Rogersaris [address] [place] [address] Dental calculus (Primary Dx); Periodontal disease Social History Tobacco Use Types Packs/Day Years [...] Sign Reading Time Taken Comments Blood Pressure 124/72 01/14/2025 3:12 PM EDT Pulse - - Temperature - - Respiratory Rate - - Oxygen Saturation - - Inhaled Oxygen Concentration - - Weight - - Height - - Body Mass Index - - documented in this encounter Progress Notes * Lise Rogers - 01/14/2025 3:00 PM EDT Patient ID: Sherry Ferguson is a 59 y.o. female. Time Out: Timeout Date: 01/14/25, Timeout Time: 1516 () Location: [facility] Tooth: Maxilla and Mandible Procedure: Prophylaxis, perio chart Verified the above with patient, blood donor unit assistant, and provider. Confirmed via patient's chart, intraorally and by radiographs. Windows Desktop Engineer: not applicable Medical Hx: Vitals: Blood pressure 124/72. Medications, Med Hx reviewed with patient and updated in chart. Treatment Provided Dental procedures in this visit D1110 - PROPHYLAXIS - ADULT (Completed) Service provider: Lise Ortiz provider: Delgado Ceballos DDS D1330 - ORAL HYGIENE INSTRUCTIONS (Completed) Service provider: Lise Ortiz provider: Delgado Ceballos DDS D9450 - CASE PRESENTATION, DETAILED AND EXTENSIVE TREATMENT PLANNING (Completed) Service provider: Lise Ortiz provider: Delgado Ceballos DDS Instruments Used: Ultrasonic Scalers, Hand Scalers, and Prophy angle Fluoride: 5% NaF varnish applied and POI given Oral Cancer Screening: No lesions Head/Neck Exam: No Lesions Calculus: Light, Moderate, and Localized on lower anterior teeth. Plaque: Moderate Stain: Light Bleeding: Light and Moderate Gingiva: Bleeding on probing Localized on linguals of anterior gingiva and all molars OH: Fair Perio Chart: Completed Still exhibits 4 mm to 5 mm on posteriors. Oral hygiene instructions provided to patient including brushing technique and flossing. Recommendations: Blair two times daily, modified garcia technique, Floss daily, Electric toothbrush, Soft bristle toothbrush, Blair Tongue, Anti-sensitivity toothpaste, OTC Fluoride mouthwash. Recall Frequency: 3 mo NV: 3 months prophy Hygienist: Lise Rogers RDH documented in this encounter Plan of Treatment Upcoming Encounters Date Type Department Care Team (Late st Contact Info) Description 02/25/2025 1:00 PM EST Office Visit [facility] MEDICINE [address] [place] [address] Anna Singh ANP [address] [place] [address] 05/15/2025 2:00 PM EST Office Visit [facility] ADULT DENTAL [address] [place] [address] Lise Rogers [address] [place] [address] Scheduled Orders Name Type Priority Associated Diagnoses Orde r Schedule PERIODIC ORAL EVALUATION - ESTABLISHED PATIENT Dental Routine 1 Occurren london starting 01/14/2025 BITEWINGS - 4 RADIOGRAPHIC IMAGES Dental Routine 1 Occurrence s starting 01/14/2025 INTRAORAL - PERIAPICAL FIRST RADIOGRAPHIC IMAGE Dental Routine 1 Occur rences starting 01/14/2025 INTRAORAL - PERIAPICAL EACH ADDITIONAL RADIOGRAPHIC IMAGE Dental Routine 1 Occurrences starting 01/14/2025 PROPHYLAXIS - ADULT Dental Routine 1 Occ urrences starting 01/14/2025 CASE PRESENTATION, DETAILED AND EXTENSIVE TREATMENT PLANNING Dental Routine 1 Occurrences starting 01/14/2025 documented as of this encounter Procedures Procedure Name Priority Date/Time Associated Diagnosis Comments PROPHYLAXIS - ADULT Routine 01/14/2025 3 :00 PM EDT Dental calculus Periodontal disease ORAL HYGIENE INSTRUCTIONS Routine 01/14/2025 3:00 PM EDT Dental calculus Periodontal disease CASE PRESENTATION, DETAILED AND EXTENSIVE TREATMENT PLANNING Routine 01/14/2025 3:00 PM EDT Dental calculus Periodontal disease documented in this encounter Visit Diagnoses Diagnosis Dental calculus- Primary Accretions on teeth Periodontal disease Unspecified gingival and periodontal disease documented in this encounter Additional Health Concerns Assessment Noted Time PHQ-9 Depression Total Score: 17 024 4:07 PM EDT documented as of this encounter Care Teams Manager Training Relationship Specialty Start Date End Date Anna Singh ANP [address] [place] [phone] PCP - General Family Medicine 05/05/22 documented as of this encounter
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
--- NOTE | ~2025-01-16 | XR_ITS ---
EXAMINATION: XR LUMBOSACRAL SPINE CLINICAL INFORMATION: L sided back/buttock pain radiating down left leg COMPARISON: None available. TECHNIQUE: Three views of the lumbosacral spine. FINDINGS: Lumbar lordosis is maintained. Grade 2 anterolisthesis of L5 on S1 due to bilateral pars defect of L5. Tiny marginal osteophytes in the lower thoracic spine. Vertebral body heights are preserved. Disc space narrowing at L5-S1. Bilateral sacroiliac joints are intact. XR/XR lumbar spine 2-3V IMPRESSION: 1. No acute compression fractures. 2. Spondylolisthesis at L5-S1. Electronically signed by: Fuad Baird MD 01/16/2025 04:47 PM EDT
--- OUTSIDE RECORDS SUMMARY | 2025-01-16 15:00 | XMS_ITS | Encounter Summary ---
Author Organization [employer] Address [address] [facility] 7t [place] [address] Care Team Providers Care Chalker Soles Name Role Phone Anna Singh LIVIA Primary Care Provider [phone] Reason for Visit * Reason Comments pain in leg 3 weeks Encounter Details Date Type Department Care Team (Late st Contact Info) Description 01/16/2025 3:00 PM EDT Office Visit [facility] [place] [address] [place], [place] [phone] Piriformis syndrome of left side (Primary Dx); Acute left ankle pain Social History Tobacco Use Types Packs/Day Years [...] Sign Reading Time Taken Comments Blood Pressure 146/91 01/16/2025 3:15 PM EDT Pulse 77 01/16/2025 3:15 PM EDT Temperature 36 C (96.8 F) 01/16/2025 3:15 PM EDT Respiratory Rate 20 01/16/2025 3:15 PM EDT Oxygen Saturation 100% 01/16/2025 3:15 PM EDT Inhaled Oxygen Concentration - - Weight 70.6 kg (155 lb 9.6 oz) 01/16/2025 3:15 P M EDT Height 152.4 cm (5') 01/16/2025 3:15 PM EDT Body Mass Index 30.39 01/16/2025 3:15 PM EDT documented in this encounter Plan of Treatment Upcoming Encounters Date Type Department Care Team (Late st Contact Info) Description 02/25/2025 1:00 PM EST Office Visit [facility] MED[facility] [address] [place] [address] Anna Singh ANP [address] [place] [address] 05/15/2025 2:00 PM EST Office Visit [facility] ADULT DENTAL [address] [place] [address] Lise Rogers [address] [place] [address] documented as of this encounter Procedures Procedure Name Priority Date/Time Associated Diagnosis Comments XR ANKLE 3+ VIEWS LEFT Routine 01/16/2025 4:20 PM EDT Piriformis syndrome of left side Acute left ankle pain XR LUMBAR SPINE 2-3 VIEWS Routine 01/16/2025 4:20 PM EDT Piriformis syndrome of left side Acute left ankle pain XR FOOT 3+ VIEWS LEFT Routine 01/16/2025 4:00 PM EDT Piriformis syndrome of left side Acute left ankle pain documented in this encounter Results * XR Lumbar Spine 2-3 Views (01/16/2025 4:20 PM EDT) Anatomical Region Laterality Modality Spine, L-spine Radiographic Chanell ging 01/16/2025 4:20 PM EDT Narrative 01/16/2025 4:50 PM EDT [address] [address] XRay Report Signed Patient: Sherry Ferguson I MR#: [id number] 6 : 1965 Acct:[id number] Age/Sex: 59 / F ADM Date: 01/16/25 Loc: HO.HHCX Attending Dr: Hailey Cornelius DO Ordering Physician: Hailey Cornelius DO Date of Service: 01/16/25 Procedure(s): XR lumbar spine 2-3V Accession Number(s): [id number] cc: Hailey Cornelius DO Reason for Exam: L sided back/buttock pain radiating down left leg EXAMINATION: XR LUMBOSACRAL SPINE CLINICAL INFORMATION: L sided back/buttock pain radiating down left leg COMPARISON: None available. TECHNIQUE: Three views of the lumbosacral spine. FINDINGS: Lumbar lordosis is maintained. Grade 2 anterolisthesis of L5 on S1 due to bilateral pars defect of L5. Tiny marginal osteophytes in the lower thoracic spine. Vertebral body heights are preserved. Disc space narrowing at L5-S1. Bilateral sacroiliac joints are intact. XR/XR lumbar spine 2-3V IMPRESSION: 1. No acute compression fractures. 2. Spondylolisthesis at L5-S1. Electronically signed by: Fuad Baird MD 01/16/2025 04:47 PM EDT RP Dictated By: Fuad Baird MD Signed By: <Electronically signed by Fuad Baird MD in OV> 01/16/251646 DD/ 19 TD/TT: 01/16/251624 Post Exchange Manager: Procedure Note Donotuseinterpreter, Image - 01/16/[address] [address] XRay Report Signed Patient: Sherry Ferguson [facility]#: [id number] 6 : 1965Acct:[id number] Age/Sex: 59 / FADM Date: 01/16/25 Loc: HO.HHCX Attending Dr: Hailey Cornelius DO Ordering Physician: Hailey Cornelius DO Date of Service: 01/16/25 Procedure(s): XR lumbar spine 2-3V Accession Number(s): [id number] cc: Hailey Cornelius DO Reason for Exam: L sided back/buttock pain radiating down left leg EXAMINATION: XR LUMBOSACRAL SPINE CLINICAL INFORMATION: L sided back/buttock pain radiating down left leg COMPARISON: None available. TECHNIQUE: Three views of the lumbosacral spine. FINDINGS: Lumbar lordosis is maintained. Grade 2 anterolisthesis of L5 on S1 due to bilateral pars defect of L5. Tiny marginal osteophytes in the lower thoracic spine. Vertebral body heights are preserved. Disc space narrowing at L5-S1. Bilateral sacroiliac joints are intact. XR/XR lumbar spine 2-3V IMPRESSION: 1. No acute compression fractures. 2. Spondylolisthesis at L5-S1. Electronically signed by: Fuad Baird MD 01/16/2025 04:47 PM EDT RP Dictated By: Fuad Baird MD Signed By: <Electronically signed by Fuad Baird MD in OV> 01/16/251646 DD/ 162 TD/TT: 01/16/251624 Post Exchange Manager: Hailey Cornelius DO IMG XR PROCEDURES Final Resu lt * XR Ankle 3+ Views Left (01/16/2025 4:20 PM EDT) Anatomical Region Laterality Modality Lower Extremities, Ankle Left Radiogr aphic Imaging 01/16/2025 4:20 PM EDT Narrative 01/16/2025 4:48 PM EDT [address] [address] XRay Report Signed Patient: Sherry Ferguson I MR#: [id number] 6 : 1965 Acct:[id number] Age/Sex: 59 / F ADM Date: 01/16/25 Loc: .HHCX Attending Dr: Hailey Cornelius DO Ordering Physician: Hailey Cornelius DO Date of Service: 01/16/25 Procedure(s): XR ankle LT min 3V Accession Number(s): [id number] cc: Hailey Cornelius DO Reason for Exam: L foot and ankle pain s/p trauma EXAMINATIONS: 1. XR ANKLE, LEFT 2. XR FOOT 3 OR MORE VIEWS LEFT CLINICAL INFORMATION: L foot and ankle pain s/p trauma COMPARISON: None available. TECHNIQUE: AP, lateral, and mortise views of the left ankle. AP, lateral and oblique views of the left foot. FINDINGS: Ankle: No fracture. Normal alignment. Ankle mortise is maintained. Overlying soft tissues are unremarkable. Foot: No fracture or destructive bone lesion. Hallux valgus. No dislocation. Joint spaces are preserved. Overlying soft tissues are unremarkable. No radiopaque foreign body. XR/XR ankle LT min 3V IMPRESSION: Left ankle: No fracture or dislocation. Left foot: No fracture or dislocation. Electronically signed by: Fuad Baird MD 01/16/2025 04:45 PM EDT Dictated By: Fuad Baird MD Signed By: <Electronically signed by Fuad Baird MD in OV> 01/16/25 1645 DD/ 162 TD/TT: 01/16/251624 Post Exchange Manager: Procedure Note Donotroryinterpreter, Image - 01/16/[address] [address] XRay Report Signed Patient: Sherry Ferguson [facility]#: [id number] 6 : 1965Acct:[id number] Age/Sex: 59 / FADM Date: 01/16/25 Loc: [facility] Attending Dr: Hailey Cornelius DO Ordering Physician: Hailey Cornelius DO Date of Service: 01/16/25 Procedure(s): XR ankle LT min 3V Accession Number(s): [id number] cc: Hailey Cornelius DO Reason for Exam: L foot and ankle pain s/p trauma EXAMINATIONS: 1. XR ANKLE, LEFT 2. XR FOOT 3 OR MORE VIEWS LEFT CLINICAL INFORMATION: L foot and ankle pain s/p trauma COMPARISON: None available. TECHNIQUE: AP, lateral, and mortise views of the left ankle. AP, lateral and oblique views of the left foot. FINDINGS: Ankle: No fracture. Normal alignment. Ankle mortise is maintained. Overlying soft tissues are unremarkable. Foot: No fracture or destructive bone lesion. Hallux valgus. No dislocation. Joint spaces are preserved. Overlying soft tissues are unremarkable. No radiopaque foreign body. XR/XR ankle LT min 3V IMPRESSION: Left ankle: No fracture or dislocation. Left foot: No fracture or dislocation. Electronically signed by: Fuad Baird MD 01/16/2025 04:45 PM EDT Dictated By: Fuad Baird MD Signed By: <Electronically signed by Fuad Baird MD in OV> 01/16/25 1645 DD/ 1620 TD/TT: 01/16/251624 Post Exchange Manager: Hailey Cornelius DO IMG XR PROCEDURES Final Resu lt * XR Foot 3+ Views Left (01/16/2025 4:00 PM EDT) Anatomical Region Laterality Modality Lower Extremities, Foot Left Radiogra phic Imaging 01/16/2025 4:00 PM EDT Narrative 01/16/2025 4:48 PM EDT [address] [address] XRay Report Signed Patient: Sherry Ferguson I MR#: [id number] 6 : 1965 Acct:[id number] Age/Sex: 59 / F ADM Date: 01/16/25 Loc: HO.HHCX Attending Dr: Hailey Cornelius DO Ordering Physician: Hailey Cornelius DO Date of Service: 01/16/25 Procedure(s): XR foot LT min 3V Accession Number(s): [id number] cc: Hailey Cornelius DO Reason for Exam: L ankle and foot pain s/p trauma EXAMINATIONS: 1. XR ANKLE, LEFT 2. XR FOOT 3 OR MORE VIEWS LEFT CLINICAL INFORMATION: L foot and ankle pain s/p trauma COMPARISON: None available. TECHNIQUE: AP, lateral, and mortise views of the left ankle. AP, lateral and oblique views of the left foot. FINDINGS: Ankle: No fracture. Normal alignment. Ankle mortise is maintained. Overlying soft tissues are unremarkable. Foot: No fracture or destructive bone lesion. Hallux valgus. No dislocation. Joint spaces are preserved. Overlying soft tissues are unremarkable. No radiopaque foreign body. XR/XR foot LT min 3V IMPRESSION: Left ankle: No fracture or dislocation. Left foot: No fracture or dislocation. Electronically signed by: Fuad Baird MD 01/16/2025 04:45 PM EDT Dictated By: Fuad Baird MD Signed By: <Electronically signed by Fuad Baird MD in OV> 01/16/25 1645 DD/ 1600 TD/TT: 01/16/25 1625 Post Exchange Manager: Procedure Note Pamelainterpreter, Image - 01/16/[address] [address] XRay Report Signed Patient: Sherry Ferguson IMR#: [id number] 6 : 1965Acct:[id number] Age/Sex: 59 / FADM Date: 01/16/25 Loc: HO.HHCX Attending Dr: Hailey Cornelius DO Ordering Physician: Hailey Cornelius DO Date of Service: 01/16/25 Procedure(s): XR foot LT min 3V Accession Number(s): [id number] cc: Hailey Cornelius DO Reason for Exam: L ankle and foot pain s/p trauma EXAMINATIONS: 1. XR ANKLE, LEFT 2. XR FOOT 3 OR MORE VIEWS LEFT CLINICAL INFORMATION: L foot and ankle pain s/p trauma COMPARISON: None available. TECHNIQUE: AP, lateral, and mortise views of the left ankle. AP, lateral and oblique views of the left foot. FINDINGS: Ankle: No fracture. Normal alignment. Ankle mortise is maintained. Overlying soft tissues are unremarkable. Foot: No fracture or destructive bone lesion. Hallux valgus. No dislocation. Joint spaces are preserved. Overlying soft tissues are unremarkable. No radiopaque foreign body. XR/XR foot LT min 3V IMPRESSION: Left ankle: No fracture or dislocation. Left foot: No fracture or dislocation. Electronically signed by: Fuad Baird MD 01/16/2025 04:45 PM EDT Dictated By: Fuad Baird MD Signed By: <Electronically signed by Fuad Baird MD in OV> 01/16/25 1645 DD/ 1600 TD/TT: 01/16/25 1625 Post Exchange Manager: Hailey Cornelius DO IMG XR PROCEDURES Final Resu lt documented in this encounter Visit Diagnoses Diagnosis Piriformis syndrome of left side- Primary Acute left ankle pain documented in this encounter Additional Health Concerns Assessment Noted Time PHQ-9 Depression Total Score: 17 024 4:07 PM EDT documented as of this encounter Care Teams Chalker Soles Relationship Specialty Start Date End Date Anna Singh ANP [address] [place] [address] PCP - General Family Medicine 05/05/22 documented as of this encounter
--- OUTSIDE RECORDS SUMMARY | 2025-01-16 18:16 | XMS_ITS | Clinical Summary ---
Author Organization [employer] Address [address] [facility] [address] [place] [address] Care Team Providers Care Flake Cutter Operator Name Role Phone Nirali Bowser Primary Care Provider [phone] Allergies Active Allergy Reactions Criticality Noted Date Comments Cetirizine Headache,Anxiety Low 05/24/2019 Pravastatin Other Low 03/02/2023 Change in taste Medications Blood Glucose Monitoring Suppl (FreeStyle Lite) w/Device kit 2 Active Calcium Carb-Cholecalci ferol 600-10 MG-MCG tablet Take 1 capsule by mouth in the morning. 7 Active FreeStyle lancetsIndicati ons:Hypertensio n associated with diabetes (HCC) 1 each by Other route 2 times daily. 100 each 3 Active Additional Information Patient not taking.Reported on 01/14/2025 FREESTYLE LITE test stripIndication s:Hypertension associated with diabetes (HCC) Twice daily as needed 100 each 3 Active Additional Information Patient not taking.Reported on 01/14/2025 Alcohol Swabs padsIndications :Type 2 diabetes mellitus with hyperglycemia, without long-term current use of insulin (HCC) 1 each if needed (to clean skin). 100 each 3 Active Additional Information Patient not taking.Reported on 01/14/2025 glucose blood test stripIndication s:Type 2 diabetes mellitus with hyperglycemia, without long-term current use of insulin (HCC) 1 each by Other route 2 times daily. 100 each 12 3 Active Additional Information Patient not taking.Reported on 01/14/2025 Blood Glucose Monitoring Suppl (FreeStyle [place] Lite) w/Device kitIndications: Type 2 diabetes mellitus with hyperglycemia, without long-term current use of insulin (HCC) Use to test blood sugar 3 times daily 1 kit 3 Active Additional Information Patient not taking.Reported on 01/14/2025 Azelastine-Flut icasone 137-50 MCG/ACT suspensionIndic ations:Non-seas onal allergic rhinitis due to other allergic trigger Administer 1 spray into affected nostril(s) every 12 (twelve) hours. As needed for allergies/conge stion 23 g 2 5 Active lisinopril 2.5 MG tablet Take 1 tablet (2.5 mg) by mouth Once per day. 30 tablet 11 5 11/20/19 26 Active simvastatin (Zocor) 10 MG tablet Take 1 tablet (10 mg) by mouth at bedtime. 30 tablet 11 5 11/20/19 26 Active Bisacodyl EC 5 MG EC tablet 4 Active naproxen (Naprosyn) 500 MG tablet Take 1 tablet (500 mg) by mouth if needed in the morning and at bedtime for mild pain. 30 tablet 5 01/17/20 26 Active acetaminophen (Tylenol 8 Hour) 650 MG ER tablet Take 1 tablet (650 mg) by mouth every 8 (eight) hours if needed for mild pain. Do not crush, chew, or split. 40 tablet 1 5 02/16/20 25 Active baclofen (Lioresal) 10 MG tablet Take 0.5 tablets (5 mg) by mouth if needed in the morning, at noon, and at bedtime for muscle spasms. 30 tablet 1 5 03/17/20 25 Active Diclofenac Sodium 1 % gel Apply 2 g topically if needed in the morning, at noon, in the evening, and at bedtime (pain). 150 g 3 5 Active gabapentin (Neurontin) 100 MG capsule Take 1 capsule (100 mg) by mouth at bedtime. 30 capsule 1 5 01/17/20 26 Active acetaminophen (Tylenol Extra Strength) 500 MG tablet Take 1 tablet (500 mg) by mouth every 8 (eight) hours if needed for moderate pain. 90 tablet 5 12/20/19 25 predniSONE (Deltasone) 20 MG tablet Take 1 tablet (20 mg) by mouth Once per day for 5 days. 5 tablet 5 01/16/20 25 Active Problems Problem Noted Date Diagnosed Date [...] Encounters Date Type Department Care Team Description 01/16/2025 3:00 PM EDT Office Visit [facility] [address] [place] [phone] Piriformis syndrome of left side (Primary Dx); Acute left ankle pain 01/16/2025 Results Follow-Up [facility] [address] [address] Hailey Cornelius DO XR Lumbar Spine 2-3 Views 01/16/2025 Orders Only [facility] [address] [address] Hailey Cornelius DO Abnormal x-ray of lumbar spine (Primary Dx) 01/16/2025 Travel 01/15/[address] [address] Nirali Bowser ANP Nurse Triage 01/14/2025 3:00 PM EDT Office Visit [facility] [address] [place] [phone] KenLise Dental calculus (Primary Dx); Periodontal disease 01/10/2025 10:40 AM EDT Office Visit [facility] [address] [address] Justa Koenig MD Left sided sciatica (Primary Dx); Dietary counseling; Exercise counseling; Overweight 01/10/2025 Travel 01/07/2025 2:00 PM EDT Immunization [address] [address] Sofia Maldonado, INÉS Encounter for immunization 01/07/2025 Travel 12/09/[address] [address] Nirali Bowser ANP dec recall 11/25/2024 1:30 PM EDT Clinical Support [address] [address] Macie Loo, RN Hypertension associated with diabetes (CMS/HCC) 11/25/2024 Travel 11/20/2024 Results [facility]Up [address] [facility] [place] [address] Derrell Gilliam MD XR Hip 2 or 3 Views Right 11/19/2024 3:40 PM EDT Office Visit [facility] [place] [address] Derrell Gilliam MD Essential hypertension (Primary Dx); Chronic right hip pain; Urination frequency 11/19/2024 Orders Only [address] [place] [address] Derrell Gilliam MD 11/19/2024 Travel 11/11/[address] [address] Nirali Bowser ANP Medication Question 11/05/2024 Results Follow-Up [address] [address] Nirali Bowser ANP Albumin, Random Urine W/Creatinine, Basic Metabolic Panel 10/28/[address] [address] Nirali Bowser ANP 10/28/[address] [address] Renea Melara, crop or grain farmer Question 10/24/2024 1:00 PM EDT Office Visit [address] [address] Nirali Bowser ANP Type 2 diabetes mellitus with hyperlipidemia (CMS/HCC) ([facility]/HCC) (Primary Dx); Vitamin D deficiency; Hypertensive retinopathy of both eyes; Hypertension associated with diabetes (CMS/HCC) 10/24/2024 Travel 10/16/2024 Patient Outreach [address] [address] Nirali Bowser ANP Pre-visit Planning (SDOH screening was completed on 06/11/2024) from Last 3 Months Immunizations Immunization Administration Dates Next Due INFLUENZA VACCINE QUADRIVALE NT RECOMBINANT PRESERVATIVE FREE RIV4 12/25/2019 Influenza injectable quadriv alent IIV4 with preservative 01/22/2018 Influenza injectable quadriv alent preservative free 12/19/2022,05/05/2022,01/25/2021,2018 Influenza, IIV3, injectable 01/17/2014, 1 Influenza, Split (incl. mauricio fied surface antigen) 04/09/2013,02/01/2012 Influenza, seasonal, injecta ble, preservative free 01/07/2025,01/22/2024 MMR 03/08/2013 Pfizer Covid-19 Vaccine 12+ 08/06/2020, [...] Mass Index 30.39 01/16/2025 3:15 PM EDT Plan of Treatment Upcoming Encounters Date Type Department Care Team (Late st Contact Info) Description 02/25/2025 1:00 PM EST Office Visit [facility] [address] [place] [address] Nirali Bowser ANP [address] [place] [address] 05/15/2025 2:00 PM EST Office Visit [facility] [address] [place] [address] Michael Rogersaris [address] [place] [address] Health Maintenance Due Date Last Done Comments CT Colonography 1965 FIT DNA/Cologuard 1965 FIT 1965 FOBT 1965 HIV Screening 1965 Sigmoidoscopy 1965 Disability Screening 1965 Eye Exam 1974 Alcohol/Substance Use Screening 1976 Zoster Vaccines (2 of 2) 04/03/2019 02/06/2019 Depression Monitoring 05/21/2024 11/22/2023, 024 COVID-19 Vaccine ( season) 2024 05/21/2021, 08/06/2020, 07/16/2020 Dental Oral Exam 01/05/2025 07/05/2024, , 01/05/2021, Additional history exists Diabetes: Hemoglobin A1C 01/24/2025 025, 06/21/2024, 03/26/2024, Additional history exists SDOH Screening 06/11/2025 06/11/2024 Mammogram 06/18/2025 06/18/2024, 05/19, 06/07/2022, Additional history exists Diabetes: Foot Exam 06/21/2025 06/21/2024, 06/21/2024, 06/21/2024, Additional history exists Dental X-Ray: Bitewings 07/06/2025 07/06/19, 10/31/2023, 09/13/2021, Additional history exists Dental Prophylaxis 07/16/2025 01/14/2025, 0 07/05/2024, 12/15/2023, Additional history exists Diabetes: Urine Protein Screening 10/28/2025 10/28/2024, 12/02/2022, 07/22/2021, Additional history exists Lipid Panel 10/28/2025 10/28/2024, 08/19, 12/02/2022, Additional history exists Tobacco Screening 01/16/2026 01/16/2025 Colonoscopy 02/01/2027 10/29/2021 Colorectal Cancer Screening 02/01/2027 [...] 06/25/2020 Pneumococcal Vaccine: 50+ Years Completed 06/21/2024 Influenza Vaccine Completed 01/07/2025, , 12/19/2022, Additional history exists HIB Vaccines Aged Out [...] Name Priority Date/Time Associated Diagnosis Comments XR LUMBAR SPINE 2-3 VIEWS Routine 01/16/2025 4:20 PM EDT Piriformis syndrome of left side Acute left ankle pain XR ANKLE 3+ VIEWS LEFT Routine 01/16/2025 4:20 PM EDT Piriformis syndrome of left side Acute left ankle pain XR FOOT 3+ VIEWS LEFT Routine 01/16/2025 4:00 PM EDT Piriformis syndrome of left side Acute left ankle pain PROPHYLAXIS - ADULT Routine 01/14/2025 3 :00 PM EDT Dental calculus Periodontal disease ORAL HYGIENE INSTRUCTIONS Routine 01/14/2025 3:00 PM EDT Dental calculus Periodontal disease CASE PRESENTATION, DETAILED AND EXTENSIVE TREATMENT PLANNING Routine 01/14/2025 3:00 PM EDT Dental calculus Periodontal disease XR HIP 2 OR 3 VIEWS RIGHT [...] 2 diabetes mellitus with hyperlipidemia (CMS/HCC) (CMS/HCC) POCT GLUCOSE Routine 10/24/2024 1:08 PM EDT Type 2 diabetes mellitus with hyperlipidemia (CMS/HCC) (CMS/HCC) INTRAORAL - COMPLETE SERIES OF RADIOGRAPHIC IMAGES Routine 07/05/2024 10:00 AM EDT Fractured dental zoroastrianism with loss of material Periodontal disease Dental [...] Relevant to Health Maintenance Results * XR Ankle 3+ Views Left (01/16/2025 4:20 PM EDT) Anatomical Region Laterality Modality Lower Extremities, Ankle Left Radiogr aphic Imaging 01/16/2025 4:20 PM EDT Narrative 01/16/2025 4:48 PM EDT [address] [address] XRay Report Signed Patient: Sherry Ferguson I MR#: [id number] 6 : 1965 Acct:[id number] Age/Sex: 59 / F ADM Date: 01/16/25 Loc: .HHCX Attending Dr: Hailey Cornelius DO Ordering Physician: Hailey Cornelius DO Date of Service: 01/16/25 Procedure(s): XR ankle LT min 3V Accession Number(s): [id number] cc: Hailey Cornelius DO Reason for Exam: [...] Fuad Baird MD 01/16/2025 04:45 PM EDT RP Dictated By: Fuad Baird MD Signed By: <Electronically signed by Fuad Baird MD in OV> 01/16/25 1645 DD/ 1620 TD/TT: 01/16/25 162 Director Of Student Affairs: Procedure Note Donotuseinterpreter, Image - 01/16/[address] [address] XRay Report Signed Patient: Sherry Ferguson [facility]#: [id number] 6 : 1965Acct:[id number] Age/Sex: 59 / FADM Date: 01/16/25 Loc: HO.HHCX Attending Dr: Hailey Cornelius DO Ordering Physician: Hailey Cornelius DO Date of Service: 01/16/25 Procedure(s): XR ankle LT min 3V Accession Number(s): [id number] cc: Hailey Cornelius DO Reason for Exam: [...] Fuad Baird MD 01/16/2025 04:45 PM EDT RP Dictated By: Fuad Baird MD Signed By: <Electronically signed by Fuad Baird MD in OV> 01/16/25 1645 DD/ 1620 TD/TT: 01/16/251624 Director Of Student Affairs: us Hailey Cornelius DO IMG XR PROCEDURES Final Resu lt * XR Lumbar Spine 2-3 Views (01/16/2025 4:20 PM EDT) Anatomical Region Laterality Modality Spine, L-spine Radiographic Chanell ging 01/16/2025 4:20 PM EDT Narrative 01/16/2025 4:50 PM EDT [address] [address] XRay Report Signed Patient: Sherry Ferguson I MR#: [id number] 6 : 1965 Acct:[id number] Age/Sex: 59 / F ADM Date: 01/16/25 Loc: HO.HHCX Attending Dr: Haiely Cornelius DO Ordering Physician: Hailey Cornelius DO Date of Service: 01/16/25 Procedure(s): XR lumbar spine 2-3V Accession Number(s): [id number] cc: Hailey Cornelius DO Reason for Exam: [...] Fuad Baird MD 01/16/2025 04:47 PM EDT Dictated By: Fuad Baird MD Signed By: <Electronically signed by Fuad Baird MD in OV> 01/16/25 1647 DD/ 1620 TD/TT: 01/16/251624 Director Of Student Affairs: Procedure Note Donotroryinterpreter, Image - 01/16/[address] [address] XRay Report Signed Patient: Sherry Ferguson [facility]#: [id number] 6 : 1965Acct:[id number] Age/Sex: 59 / FADM Date: 01/16/25 Loc: HO.HHCX Attending Dr: Hailey Cornelius DO Ordering Physician: Hailey Cornelius DO Date of Service: 01/16/25 Procedure(s): XR lumbar spine 2-3V Accession Number(s): [id number] cc: Hailey Cornelius DO Reason for Exam: [...] Fuad Baird MD 01/16/2025 04:47 PM EDT Dictated By: Fuad Baird MD Signed By: <Electronically signed by Fuad Baird MD in OV> 01/16/25 1647 DD/ TD/TT: 01/16/251624 Director Of Student Affairs: Hailey Cornelius DO IMG XR PROCEDURES Final Resu lt * XR Foot 3+ Views Left (01/16/2025 4:00 PM EDT) Anatomical Region Laterality Modality Lower Extremities, Foot Left Radiogra phic Imaging 01/16/2025 4:00 PM EDT Narrative 01/16/2025 4:48 PM EDT [address] [address] XRay Report Signed Patient: Sherry Ferguson I MR#: [id number] 6 : 1965 Acct:[id number] Age/Sex: 59 / F ADM Date: 01/16/25 [facility]: Hailey Cornelius DO Ordering Physician: Hailey Cornelius DO Date of Service: 01/16/25 Procedure(s): XR foot LT min 3V Accession Number(s): [id number] cc: Hailey Cornelius DO Reason for Exam: [...] 01/16/25 1645 DD/ 1600 TD/TT: 01/16/25 1625 Director Of Student Affairs: Procedure Note Pamelainterpreter, Image - 01/16/[address] [address] XRay Report Signed Patient: Sherry Ferguson IMR#: [id number] 6 : 1965Acct:[id number] Age/Sex: 59 / FADM Date: 01/16/25 Loc: HO.HHCX Attending Dr: Hailey Cornelius DO Ordering Physician: Hailey Cornelius DO Date of Service: 01/16/25 Procedure(s): XR foot LT min 3V Accession Number(s): [id number] cc: Haliey Cornelius DO Reason for Exam: L ankle [...] 01/16/25 1645 DD/ 1600 TD/TT: 01/16/25 1625 Director Of Student Affairs: Hailey Cornelius DO IMG XR PROCEDURES Final Resu lt * XR Hip 2 or 3 Views Right (11/20/2024 1:23 PM EDT) Anatomical Region Laterality Modality Lower Extremities, Hip Right Radiograp hic Imaging 11/20/2024 1:23 PM EDT Narrative 11/20/2024 2:21 PM EDT [address] [address] XRay Report Signed Patient: Sherry Ferguson I MR#: [id number] 6 : 1965 Acct:[id number] Age/Sex: 59 / F ADM Date: 11/20/24 Loc: HO.HHCX Attending Dr: Nirali Bowser NP Ordering Physician: Derrell Gilliam MD Date of Service: 11/20/24 Procedure(s): XR hip RT min 2V Accession Number(s): [id number] cc: Derrell Gilliam MD; NIRALI BOWSER NP [...] 11/20/24 1418 DD/ 1323 TD/TT: 11/20/24 1400 Director Of Student Affairs: Procedure Note Donotuseinterpreter, Image - 11/20/[address] [address] XRay Report Signed Patient: Sherry Ferguson IMR#: [id number] 6 : 1965Acct:[id number] Age/Sex: 59 / FADM Date: 11/20/24 Loc: HO.HHCX Attending Dr: Nirali Bowser NP Ordering Physician: Derrell Gilliam MD Date of Service: 11/20/24 Procedure(s): XR hip RT min 2V Accession Number(s): [id number] cc: Derrell Gilliam MD; NIRALI BOWSER NP [...] 11/20/24 1418 DD/ 1323 TD/TT: 11/20/24 1400 Director Of Student Affairs: us Derrell Name IMG XR PROCEDURES Final Result * Culture, Urine, Routine (11/19/2024 5:53 PM EDT) Urine Urine specimen obtained by clean catch procedure / Unknown 11/19/2024 5:53 PM EDT 11/19/2024 5:53 PM EDT Comment:UACC Narrative [facility] - 11/21/2024 10:49 AM EDT Urine Culture Report Result Urine Culture 10,000 to 50,000 cfu/ml Urine Culture Mixed bacterial scott characteristic of Urine Culture urogenital contamination. Specimen Source: Urine clean catch us Derrell Gilliam MD LAB MICROBIOLOGY - GENERAL ORDER NATACHA Final Result [facility] [address] [place] [phone] * (ABNORMAL) Urinalysis, Complete, with Reflex to Culture (11/19/2024 4:09 PM EDT) Color Urine Yellow [facility] Appearance Urine Clear [facility] PH 5.5 5.0 - 9.0 [facility] Glucose Urine UA Negative Negative mg/dL [facility] Urine Blood Negative Negative [facility] Specific [place] - Urine 1.010 1.005 - 1.025 [facility] Urine Protein Negative Neg-Trace mg/dL [facility] Urine Ketones Negative Negative mg/dL [facility] Nitrite Urine Negative Negative [facility] Leukocyte Esterase Urine Small (1+)(A) Negative [facility] RBC Urine 0-2 0 - 2 /HPF [facility] Urine WBC 6-10(A) 0 - 5 /HPF [facility] Urine Squamous Epithelial Cell 0-2 0 - 2 /HPF [facility] Urine Bacteria None Seen None Seen [facility] Hyaline Casts, Urine 0-2 0 - 2 /LPF [facility] Urine 11/19/2024 4:09 PM EDT 11/19/2024 5:36 PM EDT Narrative [facility] - 11/19/2024 5:41 PM EDT [id number], Clean Catch us Derrell Name LAB URINE ORDERABLES Final Resul t [facility] [address] [place] [address] [phone] * Vitamin D, 25-Hydroxy, Total, Immunoassay (10/28/2024 10:59 AM EDT) Vitamin D 25-OH Total 46.1 >30 ng/mL [facility] Comment: Health Based Reference Values*< 20 ng/mL Bvdknurqy99-02 ng/mL Insufficient> 30 ng/mL Sufficient*Kee LABOY. N [...] ORDERABLES Final Resul t Performing Organization Address [facility] de Phone Number [facility] [address] [place] [phone] * Albumin, Random Urine W/Creatinine (10/28/2024 10:59 AM EDT) Creatinine, Urine 155.65 mg/dL [facility] Microalbumin Urine 14.0 mg/L [facility] Microalbum Creatinine Ratio Ur 8.9 <30 ug/mg cr [facility] Comment:Albumin/Creatinine R atio Reference Ranges: Normal: < 30 ug/mg creatinine Microalbuminuria: 30 - 300 ug/mg creatinineClinical Albuminuria: > 300 ug/mg creatinine Urine 10/28/2024 10:5 9 AM EDT 10/28/2024 12:52 PM EDT Nirali Bowser ANP LAB URINE ORDERABLES Final Resul t Performing Organization Address [facility] de Phone Number [facility] [address] [place] [phone] * (ABNORMAL) Lipid Panel, Standard (10/28/2024 10:59 AM EDT) Triglycerides 231(H) <150 mg/dL [facility] Comment:Desirable Triglyceri de: less than 150 mg/dLBorderline High Triglyceride 150-199 mg/dLHigh Triglyceride: 200-499 mg/dLVery High Triglyceride: greater than or equal to 5OO mg/dL Cholesterol 209(H) <200 mg/dL [facility] Comment:Desirable Cholestero l: less than 200 mg/dLBorderline High Cholesterol: 200-239 mg/dLHigh Cholesterol: greater than 239 mg/dL LDL Cholesterol Calculated 110(H) <100 mg/dL [facility] Comment:Desirable LDL: less than 100 mg/dLNear Optimal/Above Optimal LDL: 110- 129 mg/dLBorderline High LDL: 130-159 mg/dLHigh LDL: 160-189 mg/dLVery High LDL: greater than or equal to 190 mg/dL HDL Cholesterol 53 >40 mg/dL [facility] Comment:Desirable HDL: great er than 40 mg/dL Note: This HDL assay may give artificially low results in patients with liver disease. Blood Venous blood specimen / Unknown 10/28/2024 10:59 AM EDT 10/28/2024 1:18 PM EDT Nirali Bowser ANP LAB BLOOD ORDERABLES Final Resul t Performing Organization Address [facility] Co de Phone Number [facility] [address] [place] [phone] * Basic Metabolic Panel (10/28/2024 10:59 AM EDT) Sodium 143 135 - 145 mmol/L [facility] Potassium 4.2 3.3 - 5.1 mmol/L [facility] Chloride 106 96 - 108 mmol/L [facility] Carbon Dioxide 28 22 - 29 mmol/L [facility] Anion Gap 13 12 - 20 [facility] Urea Nitrogen (BUN) 10 9 - 16 mg/dL [facility] Creatinine, Serum 0.69 0.5 - 1.4 mg/dL [facility] Estimated Glomerular Filt Rate >60 [facility] Comment:Chronic Kidney Disea se: Estimated GFR < 60 mL/min/1.26k5Xddmks Kidney Disease: Estimated GFR < 15 mL/min/1.73m2 Glucose 102 60 - 115 mg/dL [facility] Calcium 9.5 8.4 - 10.2 mg/dL [facility] Blood Venous blood specimen / Unknown 10/28/2024 10:59 AM EDT 10/28/2024 1:18 PM EDT Nirali Bowser ANP LAB BLOOD ORDERABLES Final Resul t Performing Organization Address City/[facility] Co de Phone Number [facility] [address] [place] [address] [phone] * (ABNORMAL) POCT HGB A1C (10/24/2024 1:09 PM EDT) Hemoglobin A1C 6.6(A) 4.0 - 5.7 % QC Media Lot # [id number] Lot# Expiration Date , Blood 10/24/2024 1:09 PM EDT us Nirali Bowser ANP POINT OF CARE TEST ENTER/EDIT OR DERABLES Final Result * POCT Glucose (10/24/2024 1:08 PM EDT) Glucose Blood, POC 115 60 - 200 mg/dL QC Media Lot # [id number] Lot# Expiration Date 202, Blood Capillary blood specimen / Unknown 10/24/2024 1:08 PM EDT us Nirali Bowser ANP POINT OF CARE TEST ENTER/EDIT OR DERABLES Final Result * BI Mammogram Screening Tomosynthesis Bilateral (06/18/2024 11:05 AM EDT) Anatomical Region Laterality Modality Breast Bilateral Mammography 06/18/2024 11:0 5 AM EDT Narrative 06/23/2024 6:47 PM EDT [address] [place] [address] Mammography Report Signed Patient: Sherry Ferguson I MR#: [id number] 6 : 1965 Acct:[id number] Age/Sex: 58 / F ADM Date: 06/18/24 Loc: MAMMO Attending Dr: Nirali Bowser NP Ordering Physician: NIRALI BOWSER NP Results: 1Negative Date of Service: 06/18/24 Follow Up: 1 Year From Orig inal Mammogram Procedure(s): MM tomosynthesis screening BI Accession Number(s): [id number] cc: NIRALI BOWSER NP EXAMINATION: MM SCREENING [...] 06/23/24 1844 DD/ 1105 TD/TT: 06/18/24 1123 Director Of Student Affairs: Procedure Note Donotuseinterpreter, Image - 06/23/[facility] [address] [place] [address] Mammography Report Signed Patient: Sherry Ferguson [facility]#: [id number] 6 : 1965Acct:[id number] Age/Sex: 58 / FADM Date: 06/18/24 Loc: HO.MAMMO Attending Dr: Nirali Bowser NP Ordering Physician: NIRALI BOWSER NPResults: 1Negative Date of Service: 06/18/24Follow Up: 1 Year From Orig inal Mammogram Procedure(s): MM tomosynthesis screening BI Accession Number(s): [id number] cc: NIRALI BOWSRE NP EXAMINATION: MM SCREENING DIGITAL BREAST TOMOSYNTHESIS, [...] 06/23/24 1844 DD/ 1105 TD/TT: 06/18/24 1123 Director Of Student Affairs: Nirali Bowser [facility] BI PROCEDURES Edited Result - Final * HPV mRNA E6/E7 w/Reflex to HPV Genotypes 16, 18/45 (06/26/2023 1:05 PM EDT) HPV nRNA E6/E7 Not Detected Not Detected [facility] Comment:Methodology: Transcr iption-Mediated AmplificationThis assay detects E6/E7 viral messenger RNA (mRNA) from 14high-risk HPV types (16,18,31,33,35,39,45,51,52,56,58,59,66,68).Cervical sources are required for HPV testing.If a vaginal source from a patient who has had atotal hysterectomy with removal of cervix wassubmitted, please contact the testing laboratoryfor alternative testing options.For additional information, please refer [email or web address](This link if provided for information/educational purposes only.)THIS TEST WAS PERFORMED AT:[employer] [place] [phone] GONZALEZ MD HPV mRNA E6/E7 [facility] HPV 16 RNA [facility] HPV 18/45 RNA TNP [facility] 06/26/2023 1:05 PM EDT 06/27/2023 2:00 PM EDT Gabriela Noriega CNM LAB CYTOLOGY ORDERABLES F inal Result [facility] [address] [place] [phone] * Pap Smear (06/26/2023 1:05 PM EDT) Swab Cervix uteri structure / Unknown 06/26/2023 1:05 PM EDT 06/27/2023 2:00 PM EDT Narrative [facility] - 07/10/2023 10:51 AM EDT ----- ------- Name: Sherry Ferguson I Age/Sex: 57/F : 1965 Unit#: [id number] Attend Dr: NIRALI BOWSER NP Re06/26/23 Status: DEP REF Location: [facility] Disch: ----- ------- SPEC : [id number] RECD: 06/27/23-1399 STATUS: ANGELA HADDAD NUM: [id number] ZE: 06/26/23-[address] [facility] [address]: GABRIELA NORIEGA CNM ENTERED: 06/27/23-1446 SP TYPE: Pap Smr OT DR: ORDERED: Pap Smear Interpretation Satisfactory for evaluation. Negative for intraepithelial lesion or malignancy. HPV mRNA E6/E7: NOT DETECTED This assay detects E6/E7 viral messenger RNA (mRNA) from 14 high-risk HPV types (16, 18, 31, 33, 35, 39, 45, 51, 52, 56, 58, 59, 66, 68) HPV testing performed by [employer] [facility], [place], [place]. See reference laboratory portion of the EMR for entire report. Clinical Information LMP: Postmenopausal Previous PAP test: 2019, WNL Material Received ThinPrep-Vaginal/Cervical ----- ------- Signed (signature on file) LATOYA Curran (ASCP) 07/10/23 1051 ----- ------- END OF REPORT Gabriela Noriega CNM LAB CYTOLOGY ORDERABLES F inal Result [facility] [address] [place] [phone] * Hm Colonoscopy (10/29/2021) Colonoscopy Normal Normal Narrative Татьяна Thomason - 10/29/2021 Recommended repeat colonoscopy in 2 years poor prep us Historical Provider HEALTH MAINTENANCE Edited Result - [...] a test for HCV RNA (test code 40649) is suggested. For additional information please refer to http://education.[employer]/faq/DDL75j2 (This link is being provided for informational/ educational purposes only.) 06/25/2020 12:0 8 PM EDT Jose Villa MD HISTORICAL/NON ORDERABLE LABS Fi nal Result [facility] [address] from Last 3 Months or Most Recently Relevant to Health Maintenance Insurance [facility] ONE CARE < 65 [employer] [place] [id number] [facility] Care Teams Flake Cutter Operator Relationship Specialty Start Date End Date Nirali Bowser ANP [address] [place] [address] PCP - General Family Medicine 05/05/22
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
--- OUTSIDE RECORDS SUMMARY | 2025-01-16 18:16 | XMS_ITS | Encounter Summary ---
Author Organization [employer] Address 75 [facility] [address] [place] [address] Care Team Providers Care Spray Gun Sizer Name Role Phone Rachana Juarez MD Primary Care Provider Trish Marion Primary Care Provider [phone] Anna Singh Primary Care Provider [phone] Encounter Details Date Type Department Care Team (Latest Contact Info) Description 01/05/2021 Abstract [facility] Dental, Provider, DDS Social History Tobacco [...] Description 02/25/2025 1:00 PM EST Office Visit [facility] [address] [place] [address] Anna Singh ANP [address] [place] [address] 05/15/2025 2:00 PM EST Office Visit [facility] [address] [place] [address] Michael Rogersaris 230 [place] [address] documented as of this encounter Visit Diagnoses Not on filedocumented in this encounter Care Teams Spray Gun Sizer Relationship Specialty Start Date End Date Rachana Juarez MD PCP - General Family Medicine 01/07/19 03/30/22 Trish Constantino FNP 230 [place] [address] PCP - General Family Medicine 03/31/22 05/04/22 Anna Singh ANP [address] [place] [address] PCP - General Family Medicine 05/05/22 documented as of this encounter
--- OUTSIDE RECORDS SUMMARY | 2025-01-16 18:16 | XMS_ITS | Encounter Summary ---
Author Organization [employer] Address [address] [facility] [address] 7t [place] [address] Care Team Providers Care Waterproof Coating Machine Tender Name Role Phone Anna Singh Primary Care Provider [phone] Encounter Details Date Type Department Care Team (Latest Contact Info) Description 01/16/2025 Travel Social History Tobacco Use Types Packs/Day [...] 02/25/2025 1:00 PM EST Office Visit [facility] 230 [place] [address] Anna Singh ANP 230 [place] [address] 05/15/2025 2:00 PM EST Office Visit [facility]ULT DENT[facility] [address] [place] [address] Lise Rogers 230 [place] [address] documented as of this encounter Visit Diagnoses Not on filedocumented in this encounter Additional Health Concerns Assessment Noted Time PHQ-9 Depression Total Score: 17 024 4:07 PM EDT documented as of this encounter Care Teams Waterproof Coating Machine Tender Relationship Specialty Start Date End Date Anna Singh ANP [address] [place] [address] PCP - General Family Medicine 05/05/22 documented as of this encounter
--- OUTSIDE RECORDS SUMMARY | 2025-01-16 18:16 | XMS_ITS | Encounter Summary ---
Author Organization [employer] Address 75 [facility] 7t [place] [address] Care Team Providers Care Psychic Reader Name Role Phone Anna Singh Primary Care Provider [phone] Reason for Referral * Imaging (Routine) - Pending Review Specialty Diagnoses / Procedures Referred By Bhanu solitario Referred To Contact Radiology Diagnoses Abnormal x-ray of lumbar spine Procedures MR Lumbar Spine w/o Contrast Hailey Cornelius DO [address] [place] [address] Phone: tel: fax: Referral ID Status Reason Start Date Expiration Date V isits Requested Visits Authorized [id number] Pending Review 01/16/2025 01/16/2026 1 1 Encounter Details Date Type Department Care Team (Late st Contact Info) Description 01/16/2025 Orders Only [facility] [address] [place], [place] [phone] Hailey Cornelius DO [address] [place] [address] Abnormal x-ray of lumbar spine (Primary Dx) Social History Tobacco Use Types Packs/Day Years [...] as of this encounter Progress Notes * Hailey Cornelius DO - 01/16/2025 5:06 PM EDT Please advise pt that her foot and ankle xrays were nml. Recommend pain meds and ice as discussed. She can consider evaluation with ortho vs podiatry if no improvement. Please let pt know that her L-spine xrays show a forward slippage of L5 and will send pt for MRI L-spine for further evaluation. Thank you! documented in this encounter Plan of Treatment Upcoming Encounters Date Type Department Care Team ([facility] st Contact Info) Description 02/25/2025 1:00 PM EST Office Visit [facility] [address] [place] [address] Anna Singh ANP [address] [place] [address] 05/15/2025 2:00 PM EST Office Visit [facility] [address] [place], [place] [phone] Lise Rogers [address] [place], [place] [phone] Scheduled Orders Name Type Priority Associated Diagnoses Orde r Schedule MR Lumbar Spine w/o Contrast Imaging Routine Abnormal x-ray of lumbar spine Expected: 01/16/2025, Expires: 01/16/2026 documented as of this encounter Visit Diagnoses Diagnosis Abnormal x-ray of lumbar spine- Primary documented in this encounter Additional Health Concerns Assessment Noted Time PHQ-9 Depression Total Score: 17 11/21/ 024 4:07 PM EDT documented as of this encounter Care Teams Psychic Reader Relationship Specialty Start Date End Date Anna Singh ANP [address] [place] [address] PCP - General Family Medicine 05/05/22 documented as of this encounter
--- OUTSIDE RECORDS SUMMARY | 2025-01-16 18:16 | XMS_ITS | Encounter Summary ---
Author Organization [employer] Address 75 [facility] [address] [place] [address] Care Team Providers Care Mobile Home Set Up Person Name Role Phone Rachana Juarez MD Primary Care Provider Trish Marion Primary Care Provider [phone] Anna Singh Primary Care Provider [phone] Encounter Details Date Type Department Care Team (Latest Contact Info) Description 05/15/2018 Abstract [facility] CONVERSION[facility] Dental, Provider, DDS Social History Tobacco [...] Description 02/25/2025 1:00 PM EST Office Visit [facility] MEDICINE 230 [place] [address] Anna Singh ANP 230 [place] [address] 05/15/2025 2:00 PM EST Office Visit [facility] ADULT DENTAL 230 [place] [address] Ken, Lise 230 [place] [address] documented as of this encounter Visit Diagnoses Not on filedocumented in this encounter Care Teams Mobile Home Set Up Person Relationship Specialty Start Date End Date Rachana Juarez MD PCP - General Family Medicine 01/07/19 03/30/22 Trish Constantino FNP 230 [place] [address] PCP - General Family Medicine 03/31/22 05/04/22 Anna Singh ANP 230 [place] [address] PCP - General Family Medicine 05/05/22 documented as of this encounter
--- OUTSIDE RECORDS SUMMARY | 2025-01-16 18:16 | XMS_ITS | Encounter Summary ---
Author Organization [employer] Address 75 [facility] 7t [place] [address] Care Team Providers Care Sandwich Board Carrier Name Role Phone Anna Singh Primary Care Provider [phone] Reason for Visit * Reason Onset Date Comments Med Refill 01/17/2023 Encounter Details Date Type Department Care Team (Late st Contact Info) Description 01/17/2023 Telephone [facility] 230 [place], [place] [phone] Anna Singh ANP [address] [place], [place] [phone] Med Refill Social History Tobacco Use Types [...] t he electric, gas, oil or water [email or web address] threatened to shut off services in your [...] Description 02/25/2025 1:00 PM EST Office Visit [facility] [address] [place] [address] Anna Singh ANP 230 [place] [address] 05/15/2025 2:00 PM EST Office Visit [facility] [address] [place] [address] Ken, Lise [address] [place] [address] documented as of this encounter Visit Diagnoses Not on filedocumented in this encounter Additional Health Concerns Assessment Noted Time PHQ-9 Depression Total Score: 14 023 2:33 PM EDT documented as of this encounter Care Teams Sandwich Board Carrier Relationship Specialty Start Date End Date Anna Singh ANP [address] [place] [address] PCP - General Family Medicine 05/05/22 documented as of this encounter
--- OUTSIDE RECORDS SUMMARY | 2025-01-16 18:16 | XMS_ITS | Encounter Summary ---
Author Organization [employer] Address [address] [facility] [address] 7t [place] [address] Care Team Providers Care Customer Associate Name Role Phone Anna Singh Primary Care Provider [phone] Encounter Details Date Type Department Care Team (Late st Contact Info) Description 01/16/2025 Results Follow-Up [facility] [address] [place], [place] [phone] Hailey Cornelius DO [address] [place], [place] [phone] XR Lumbar Spine 2-3 Views Social History Tobacco Use Types Packs/Day Years [...] Description 02/25/2025 1:00 PM EST Office Visit [facility] [address] [place] [address] Anna Singh ANP [address] [place] [address] 05/15/2025 2:00 PM EST Office Visit [facility] [address] [place] [address] Lise Rogers [address] [place] [address] documented as of this encounter Visit Diagnoses Not on filedocumented in this encounter Additional Health Concerns Assessment Noted Time PHQ-9 Depression Total Score: 17 024 4:07 PM EDT documented as of this encounter Care Teams Customer Associate Relationship Specialty Start Date End Date Anna Singh ANP [address] [place] [address] PCP - General Family Medicine 05/05/22 documented as of this encounter
--- OUTSIDE RECORDS SUMMARY | 2025-01-16 18:16 | XMS_ITS | Encounter Summary ---
Author Organization [email or web address] Address 75 [facility] 7t [place] [address] Care Team Providers Care Fish Bailer Name Role Phone Anna Singh Primary Care Provider [phone] Reason for Visit * Reason Onset Date Comments Medication Question 11/18/2022 Encounter Details Date Type Department Care Team ([facility] Contact Info) Description 11/18/2022 Telephone [facility] 230 [place], [place] [phone] Anna Singh ANP [address] [place] [address] Medication Question Social History Tobacco Use Types [...] 11/18/2022 12:45 PM EDT Michael Menjivar from [facility] calling to inform script that was sent for Alcohol Swabs pads needsdirections. documented in this encounter Plan of Treatment Upcoming Encounters Date Type Department Care Team ([facility] Contact Info) Description 02/25/2025 1:00 PM EST Office Visit [facility] [address] [place] [address] Anna Singh ANP [address] [place] [address] 05/15/2025 2:00 PM EST Office Visit [facility] ADULT DENTAL [address] [place], [place] [phone] Lise Rogers [address] [place] [address] documented as of this encounter Visit Diagnoses Not on filedocumented in this encounter Additional Health Concerns Assessment Noted Time PHQ-9 Depression Total Score: 14 023 2:33 PM EDT documented as of this encounter Care Teams Fish Bailer Relationship Specialty Start Date End Date Anna Singh ANP [address] [place] [address] PCP - General Family Medicine 05/05/22 documented as of this encounter
== END 2025-01-16 16:00 | disposition home or self-care (01) ==
LOC: HO.HHCX 15:59
PROVIDERS: Visit Provider Family Medicine
DX: M25.572 Pain in left ankle and joints of left foot (principal); G57.02 Lesion of sciatic nerve, left lower limb
CPT/HCPCS: 72100; 73610; 73630

== ENCOUNTER → 2025-01-16 15:59 | Outpatient (BNV) | payer OTHER, SELFPAY | PROVIDERS: Visit Provider Radiology Body Imaging | DX: M43.17 Spondylolisthesis, lumbosacral region (principal); M25.572 Pain in left ankle and joints of left foot; M79.672 Pain in left foot | CPT/HCPCS: 72100; 73610; 73630 ==

== ENCOUNTER → 2025-02-12 09:53 | Outpatient (BNV) | payer OTHER, SELFPAY | PROVIDERS: PCP Nurse Practitioner Primary Care; Visit Provider Radiology Body Imaging | DX: M47.816 Spondylosis without myelopathy or radiculopathy, lumbar region (principal); M48.061 Spinal stenosis, lumbar region without neurogenic claudication | CPT/HCPCS: 72148 ==

== ENCOUNTER 2025-02-12 09:54 | Outpatient (REF) | payer OTHER, SELFPAY ==
--- NOTE | ~2025-02-12 | MR_ITS ---
EXAMINATION: MR LUMBAR SPINE WITHOUT CONTRAST CLINICAL INFORMATION: ABN XRAY OF L-SPINE; PAIN COMPARISON: Radiographs of the lumbar spine on January 16, 2025 TECHNIQUE: MRI of the lumbar spine was obtained using routine sequences without administration of intravenous contrast. FINDINGS: Alignment: Grade 1 anterolisthesis of L5 on S1. Vertebrae: No compression fracture. Mild endplate changes at L5-S1. Findings suggestive of bilateral pars defect of L5 vertebral body, which could be confirmed with prior CT study. Intervertebral discs: Disc desiccation changes and mild loss of height of L5-S1 disc. Conus: Terminates normally at mid L1 level. Unremarkable appearance of the distal spinal cord and conus. Soft tissues: Posterior paraspinal soft tissues are unremarkable. Other findings: Incompletely evaluated T2 hyperintense bilateral renal lesions could represent cysts. Findings by level: T11-T12: Minimal bulging disc. No spinal canal or neuroforaminal stenosis. T12-L1: No spinal canal or neuroforaminal stenosis. L1-L2: No spinal canal or neuroforaminal stenosis. L2-L3: No spinal canal or neuroforaminal stenosis. L3-L4: Minimal bulging disc. No spinal canal or neuroforaminal stenosis. L4-L5: Bulging disc and facet arthropathy. No spinal canal or neuroforaminal stenosis. L5-S1: Combination of anterolisthesis, bulging of the uncovered disc and facet arthropathy contributes to moderate/severe bilateral neuroforaminal stenosis, left greater than the right. Mild mass effect over the left exiting L5 nerve root. No spinal canal stenosis. MR/MR lumbar spine wo con IMPRESSION: Degenerative changes in the middle/lower lumbar spine, most pronounced at L5-S1 with moderate/severe bilateral neuroforaminal stenosis, left greater than right. Electronically signed by: Fuad Baird MD 02/12/2025 11:35 AM [facility]
--- OUTSIDE RECORDS SUMMARY | 2025-02-12 11:33 | XMS_ITS | Encounter Summary ---
Author Organization [employer] Address 75 [facility] 7t [place] [address] Care Team Providers Care Assistant Store Manager Trainee Name Role Phone Anna Singh Primary Care Provider [phone] Reason for Visit * Reason Onset Date Comments Med Refill 01/17/2023 Encounter Details Date Type Department Care Team (Late st Contact Info) Description 01/17/2023 Telephone [facility] 230 [place], [place] [phone] Anna Singh ANP 230 [place], [place] [phone] Med Refill Social History Tobacco Use Types [...] t he electric, gas, oil or water [employer] threatened to shut off services in your [...] Description 02/25/2025 1:00 PM EST Office Visit [facility] [address] [place] [address] Anna Singh ANP [address] [place] [address] 05/15/2025 2:15 PM EST Office Visit [facility] ADULT DENTAL [address] [place] [address] Ken, Lise [address] [place] [address] documented as of this encounter Visit Diagnoses Not on filedocumented in this encounter Additional Health Concerns Assessment Noted Time PHQ-9 Depression Total Score: 14 023 2:33 PM EDT documented as of this encounter Care Teams Assistant Store Manager Trainee Relationship Specialty Start Date End Date Anna Singh ANP [address] [place] [address] PCP - General Family Medicine 05/05/22 documented as of this encounter
--- OUTSIDE RECORDS SUMMARY | 2025-02-12 11:33 | XMS_ITS | Encounter Summary ---
Author Organization [employer] Address 75 [facility] [address] [address] Care Team Providers Care Surgeon Chief Name Role Phone Rachana Juarez MD Primary Care Provider Trish Marion Primary Care Provider [phone] Anna Singh Primary Care Provider [phone] Encounter Details Date Type Department Care Team (Latest Contact Info) Description 05/15/2018 Abstract [facility] CONVERSIONS Dental, Provider, DDS Social [...] 02/25/2025 1:00 PM EST Office Visit [facility] MEDICINE 230 [place] [address] Anna Singh ANP 230 [place] [address] 05/15/2025 2:15 PM EST Office Visit [facility] ADULT DENTAL [address] [place] [address] Michael Rogersaris [address] [place] [address] documented as of this encounter Visit Diagnoses Not on filedocumented in this encounter Care Teams Surgeon Chief Relationship Specialty Start Date End Date Rachana Juarez MD PCP - General Family Medicine 01/07/19 03/30/22 Trish Constantino FNP 230 [place] [address] PCP - General Family Medicine 03/31/22 05/04/22 Anna Singh ANP 230 [place] [address] PCP - General Family Medicine 05/05/22 documented as of this encounter
--- OUTSIDE RECORDS SUMMARY | 2025-02-12 11:33 | XMS_ITS | Encounter Summary ---
Author Organization [employer] Address 75 [facility] [address] [place] [address] Care Team Providers Care Sap Project Manager Name Role Phone Rachana Juarez MD Primary Care Provider Trish Marion Primary Care Provider + Anna Singh Primary Care Provider [phone] Encounter Details Date Type Department Care Team (Latest Contact Info) Description 01/05/2021 Abstract [facility] CONVERSIONS Dental, Provider, DDS Social History [...] 02/25/2025 1:00 PM EST Office Visit [facility] [address] [place] [address] Anna Singh ANP [address] [place] [address] 05/15/2025 2:15 PM EST Office Visit [facility] ADULT DENTAL [address] [place] [address] Michael Rogersaris [address] [place] [address] documented as of this encounter Visit Diagnoses Not on filedocumented in this encounter Care Teams Sap Project Manager Relationship Specialty Start Date End Date Rachana Juarez MD PCP - General Family Medicine 01/07/19 03/30/22 Trish Constantino FNP [address] [place] [address] PCP - General Family Medicine 03/31/22 05/04/22 Anna Singh ANP [address] [place] [address] PCP - General Family Medicine 05/05/22 documented as of this encounter
--- OUTSIDE RECORDS SUMMARY | 2025-02-12 11:33 | XMS_ITS | Clinical Summary ---
Author Organization [employer] Address [address] [facility] [address] [place] [address] Care Team Providers Care Test Man Name Role Phone Nirali Bowser Primary Care Provider [phone] Allergies Active Allergy Reactions Criticality Noted Date [...] on 01/14/2025 Blood Glucose Monitoring Suppl (FreeStyle [place] Lite) w/Device kitIndications: Type 2 diabetes mellitus [...] 30 capsule 1 5 01/17/20 26 Active predniSONE (Deltasone) 20 MG tablet Take 1 [...] On statin, ACEi Hypertension associated with diabetes ([facility]) 05/05/2022 Overview (12/23/2022): Current regimen: Lisinopril 2.5mg [...] Description 01/16/2025 3:00 PM EDT Office Visit [facility] [address] [place] [phone] Hailey Cornelius DO Piriformis syndrome of left side (Primary Dx); Acute left ankle pain 01/16/2025 Results Follow-Up [facility] [address] [address] Hailey Cornelius DO XR Lumbar Spine 2-3 Views 01/16/[address] [facility] [address] [address] Hailey Cornelius DO Abnormal x-ray of lumbar spine (Primary Dx) 01/16/2025 Travel 01/15/[address] [address] Nirali Bowser, LIVIA Nurse Triage 01/14/2025 3:00 PM EDT Office Visit [facility] ADULT D[facility]AL [address] [place] [phone] KenLise Dental calculus (Primary Dx); Periodontal disease 01/10/2025 10:40 AM EDT [facility] [address] [address] Justa Koenig MD Left sided sciatica (Primary Dx); Dietary counseling; Exercise counseling; Overweight 01/10/2025 Travel 01/07/2025 2:00 PM EDT Immunization [address] [address] Sofia Maldonado RN Encounter for immunization 01/07/2025 Travel 12/09/[address] [address] Nirali Bowser, ANP dec recall 11/25/2024 1:30 PM EDT Clinical Support [address] [address] Macie Loo, INÉS Hypertension associated with diabetes ([facility]) 11/25/2024 Travel 11/20/2024 Results Follow-Up [facility] MED[facility] [address] [place] [address] Derrell Gilliam MD XR Hip 2 or 3 Views Right 11/19/2024 3:40 PM EDT Office Visit [facility] [address] [place] [address] Derrell Gilliam MD Essential hypertension (Primary Dx); Chronic right hip pain; Urination frequency 11/19/2024 Orders Only [facility] [address] [facility] [place] [address] Derrell Gilliam MD 11/19/2024 Travel from Last 3 Months Immunizations Immunization Administration [...] Description 02/25/2025 1:00 PM EST Office Visit [facility] [address] [place] [address] Nirali Bowser ANP [address] [place] [address] 05/15/2025 2:15 PM EST Office Visit [facility] ADULT DENTAL [address] [place] [address] Michael Rogersaris [address] [place] [address] Health Maintenance Due Date Last Done Comments [...] Additional history exists Lipid Panel 10/28/2025 10/28/2024, 06/, 12/02/2022, Additional history exists Tobacco Screening 01/16/2026 [...] Routine 11/19/2024 4:09 PM EDT Urination frequency ALBUMIN, RANDOM URINE W/CREATININE Routine 10/28/2024 10:59 AM EDT Hypertension associated with diabetes (CMS/HCC) LIPID PANEL, STANDARD Routine 10/28/2024 10:59 AM EDT Type 2 diabetes mellitus with hyperlipidemia (CMS/HCC) (CMS/HCC) POCT GLYCATED HEMOGLOBIN, TOTAL Routine 10/24/2024 1:09 PM EDT Type 2 diabetes mellitus with hyperlipidemia (CMS/HCC) (CMS/HCC) INTRAORAL - COMPLETE SERIES OF RADIOGRAPHIC IMAGES Routine 07/05/2024 10:00 AM EDT Fractured dental roman catholic with loss of material Periodontal disease Dental [...] PM EDT Narrative 01/16/2025 4:48 PM EDT [address] [address] XRay Report Signed Patient: Sherry Ferguson I MR#: [id number] 6 : 1965 Acct:[id number] Age/Sex: 59 / F ADM Date: 01/16/25 Loc: HO.HHCX Attending Dr: Hailey Cornelius DO Ordering Physician: Hailey Cornelius DO Date of Service: 01/16/25 Procedure(s): XR ankle LT min 3V Accession Number(s): [id number] cc: Hailey Cornelius DO Reason for Exam: [...] OV> 01/16/25 1645 DD/ 1620 TD/TT: 01/16/25 1625 Relish Maker: Procedure Note Donotuseinterpreter, Image - 01/16/[address] [address] XRay Report Signed Patient: Sherry Ferguson IMR#: [id number] 6 : 1965Acct:[id number] Age/Sex: 59 / FADM Date: 01/16/25 Loc: HO.HHCX Attending Dr: Hailey Cornelius DO Ordering Physician: Hailey Cornelius DO Date of Service: 01/16/25 Procedure(s): XR ankle LT min 3V Accession Number(s): [id number] cc: Hailey Cornelius DO Reason for Exam: [...] OV> 01/16/25 1645 DD/ 1620 TD/TT: 01/16/25 1625 Relish Maker: Hailey Cornelius DO IMG XR PROCEDURES Final Resu lt * XR Lumbar Spine 2-3 Views (01/16/2025 4:20 PM EDT) Anatomical Region Laterality Modality Spine, L-spine Radiographic Chanell ging 01/16/2025 4:20 PM EDT Narrative 01/16/2025 4:50 PM EDT [address] [address] XRay Report Signed Patient: Sherry Ferguson I MR#: [id number] 6 : 1965 Acct:[id number] Age/Sex: 59 / F ADM Date: 01/16/25 Loc: HO.HHCX Attending Dr: Hailey Cornelius DO Ordering Physician: Hailey Cornelius DO Date of Service: 01/16/25 Procedure(s): XR lumbar spine 2-3V Accession Number(s): [id number] cc: Hailey Cornelius DO Reason for Exam: [...] in OV> 01/16/251646 DD/ 19 TD/TT: 01/16/251624 Relish Maker: Procedure Note Donotuseinterpreter, Image - 01/16/[address] [address] XRay Report Signed Patient: Sherry Ferguson [facility]#: [id number] 6 : 1965Acct:[id number] Age/Sex: 59 / FADM Date: 01/16/25 Loc: .HHCX Attending Dr: Hailey Cornelius DO Ordering Physician: Hailey Cornelius DO Date of Service: 01/16/25 Procedure(s): XR lumbar spine 2-3V Accession Number(s): [id number] cc: Hailey Cornelius DO Reason for Exam: [...] in OV> 01/16/251646 DD/ 162 TD/TT: 01/16/251624 Relish Maker: us Hailey Cornelius DO IMG XR PROCEDURES Final Resu lt * XR Foot 3+ Views Left (01/16/2025 4:00 PM EDT) Anatomical Region Laterality Modality Lower Extremities, Foot Left Radiogra phic Imaging 01/16/2025 4:00 PM EDT Narrative 01/16/2025 4:48 PM EDT [address] [address] XRay Report Signed Patient: Sherry Ferguson I MR#: [id number] 6 : 1965 Acct:[id number] Age/Sex: 59 / F ADM Date: 01/16/25 Loc: [facility] Attending Dr: Hailey Cornelius DO Ordering Physician: Hailey Cornelius DO Date of Service: 01/16/25 Procedure(s): XR foot LT min 3V Accession Number(s): [id number] cc: Hailey Cornelius DO Reason for Exam: [...] 01/16/25 1645 DD/ 1600 TD/TT: 01/16/25 1625 Relish Maker: Procedure Note Donotuseinterpreter, Image - 01/16/2025 [facility] [address] [place] [address] XRay Report Signed Patient: Sherry Ferguson [facility]#: [id number] 6 : 1965Acct:[id number] Age/Sex: 59 / FADM Date: 01/16/25 Loc: HO.HHX Attending Dr: Hailey Cornelius DO Ordering Physician: Hailey Cornelius DO Date of Service: 01/16/25 Procedure(s): XR foot LT min 3V Accession Number(s): [id number] cc: Hailey Cornelius DO Reason for Exam: [...] 01/16/25 1645 DD/ 1600 TD/TT: 01/16/25 1625 Relish Maker: us Hailey Cornelius DO IMG XR PROCEDURES Final Resu lt * XR Hip 2 or 3 Views Right (11/20/2024 1:23 PM EDT) Anatomical Region Laterality Modality Lower Extremities, Hip Right Radiograp hic Imaging 11/20/2024 1:23 PM EDT Narrative 11/20/2024 2:21 PM EDT [address] [address] XRay Report Signed Patient: Sherry Ferguson I MR#: [id number] 6 : 1965 Acct:[id number] Age/Sex: 59 / F ADM Date: 11/20/24 Loc: HO.HHCX Attending Dr: Nirali Bowser NP Ordering Physician: Derrell Gilliam MD Date of Service: 11/20/24 Procedure(s): XR hip RT min 2V Accession Number(s): [id number] cc: Derrell Gilliam MD; NIRALI BOWSER NP [...] 11/20/24 1418 DD/ 1323 TD/TT: 11/20/24 1400 Relish Maker: Procedure Note Donotuseinterpreter, Image - 11/20/[address] [address] XRay Report Signed Patient: Sherry Ferguson IMR#: [id number] 6 : 1965Acct:[id number] Age/Sex: 59 / FADM Date: 11/20/24 Loc: HO.HHCX Attending Dr: Nirali Bowser TRACK CAR OPERATOR Ordering Physician: Derrell Gilliam MD Date of Service: 11/20/24 Procedure(s): XR hip RT min 2V Accession Number(s): [id number] cc: Derrell Gilliam MD; NIRALI BOWSER NP [...] 11/20/24 1418 DD/ 1323 TD/TT: 11/20/24 1400 Relish Maker: us Derrell Gilliam MD IMG XR PROCEDURES Final Result * Culture, Urine, Routine (11/19/2024 5:53 PM EDT) Urine Urine specimen obtained by clean catch procedure / Unknown 11/19/2024 5:53 PM EDT 11/19/2024 5:53 PM EDT Comment:UACC Narrative [facility] - 11/21/2024 10:49 AM EDT Urine Culture Report Result Urine Culture 10,000 to 50,000 cfu/ml Urine Culture Mixed bacterial scott characteristic of Urine Culture urogenital contamination. Specimen Source: Urine clean catch us Derrell Gilliam MD LAB MICROBIOLOGY - GENERAL ORDER NATACHA Final Result [facility] [address] [place] [address] [phone] * (ABNORMAL) Urinalysis, Complete, with Reflex to Culture (11/19/2024 4:09 PM EDT) Color Urine Yellow [facility] Appearance Urine Clear [facility] PH 5.5 5.0 - 9.0 [facility] Glucose Urine UA Negative Negative mg/dL [facility] Urine Blood Negative Negative [facility] Specific [place] - Urine 1.010 1.005 - 1.025 [facility] Urine Protein Negative Neg-Trace mg/dL [facility] Urine Ketones Negative Negative mg/dL [facility] Nitrite Urine Negative Negative [facility] Leukocyte Esterase Urine Small (1+)(A) Negative [facility] RBC Urine 0-2 0 - 2 /HPF [facility] Urine WBC 6-10(A) 0 - 5 /HPF [facility] Urine Squamous Epithelial Cell 0-2 0 - 2 /HPF [facility] Urine Bacteria None Seen None Seen [facility] Hyaline Casts, Urine 0-2 0 - 2 /LPF [facility] Urine 11/19/2024 4:09 PM EDT 11/19/2024 5:36 PM EDT Narrative [facility] - 11/19/2024 5:41 PM EDT [id number], Clean Catch us Derrell Gilliam MD LAB URINE ORDERABLES Final Resul t Performing Organization Address [facility] de Phone Number [facility] [address] [place] [phone] * Albumin, Random Urine W/Creatinine (10/28/2024 10:59 AM EDT) Creatinine, Urine 155.65 mg/dL [facility] Microalbumin Urine 14.0 mg/L [facility] Microalbum Creatinine Ratio Ur 8.9 <30 ug/mg cr [facility] Comment:Albumin/Creatinine R atio Reference Ranges: Normal: < 30 ug/mg creatinine Microalbuminuria: 30 - 300 ug/mg creatinineClinical Albuminuria: > 300 ug/mg creatinine Urine 10/28/2024 10:5 9 AM EDT 10/28/2024 12:52 PM EDT us Nirali BHAKTA LAB URINE ORDERABLES Final Resul t Performing Organization Address [facility] de Phone Number [facility] [address] [place] [phone] * (ABNORMAL) Lipid Panel, Standard (10/28/2024 10:59 AM EDT) Triglycerides 231(H) <150 mg/dL [facility] Comment:Desirable Triglyceri de: less than 150 mg/dLBorderline High Triglyceride 150-199 mg/dLHigh Triglyceride: 200-499 mg/dLVery High Triglyceride: greater than or equal to 5OO mg/dL Cholesterol 209(H) <200 mg/dL [facility] Comment:Desirable Cholestero l: less than 200 mg/dLBorderline High Cholesterol: 200-239 mg/dLHigh Cholesterol: greater than 239 mg/dL LDL Cholesterol Calculated 110(H) <100 mg/dL [facility] Comment:Desirable LDL: less than 100 mg/dLNear Optimal/Above Optimal LDL: 110- 129 mg/dLBorderline High LDL: 130-159 mg/dLHigh LDL: 160-189 mg/dLVery High LDL: greater than or equal to 190 mg/dL HDL Cholesterol 53 >40 mg/dL [facility] Comment:Desirable HDL: great er than 40 mg/dL Note: This HDL assay may give artificially low results in patients with liver disease. Blood Venous blood specimen / Unknown 10/28/2024 10:59 AM EDT 10/28/2024 1:18 PM EDT us Nirali BHAKTA LAB BLOOD ORDERABLES Final Resul t [facility] [address] [place] [phone] * (ABNORMAL) POCT HGB A1C (10/24/2024 [...] AM EDT Narrative 06/23/2024 6:47 PM EDT [facility] [address] [place] [address] Mammography Report Signed Patient: Sherry Ferguson I MR#: [id number] 6 : 1965 Acct:[id number] Age/Sex: 58 / F ADM Date: 06/18/24 Loc: HO.MAMMO Attending Dr: Nirali Bowser NP Ordering Physician: NIRALI BOWSER NP Results: 1Negative Date of Service: 06/18/24 Follow Up: 1 Year From Orig inal Mammogram Procedure(s): MM tomosynthesis screening BI Accession Number(s): [id number] cc: NIRALI BOWSER NP EXAMINATION: MM SCREENING [...] 06/23/24 1844 DD/ 1105 TD/TT: 06/18/24 1123 Relish Maker: Procedure Note Donotuseinterpreter, Image - 06/23/2024 [place] [facility] [address] [place], [place] [address] Mammography Report Signed Patient: Sherry Ferguson [facility]#: [id number] 6 : 1965Acct:[id number] Age/Sex: 58 / FADM Date: 06/18/24 Loc: HO.MAMMO Attending Dr: Nirlai Bowser TRACK CAR OPERATOR Ordering Physician: NIRALI BOWSER NPResults: 1Negative Date of Service: 06/18/24Follow Up: 1 Year From Orig inal Mammogram Procedure(s): MM tomosynthesis screening BI Accession Number(s): [id number] cc: NIRALI BOWSER NP EXAMINATION: MM SCREENING [...] 06/23/24 1844 DD/ 1105 TD/TT: 06/18/24 1123 Relish Maker: Nirali Bowser ANP IMG BI PROCEDURES Edited Result - Final * HPV mRNA E6/E7 w/Reflex to HPV Genotypes 16, 18/45 (06/26/2023 1:05 PM EDT) HPV nRNA E6/E7 Not Detected Not Detected [facility] Comment:Methodology: Transcr iption-Mediated AmplificationThis assay detects E6/E7 viral messenger RNA (mRNA) from 14high-risk HPV types (16,18,31,33,35,39,45,51,52,56,58,59,66,68).Cervical sources are required for HPV testing.If a vaginal source from a patient who has had atotal hysterectomy with removal of cervix wassubmitted, please contact the testing laboratoryfor alternative testing options.For additional information, please refer tohttp://education.[employer]/faq/MIA244d1(This link if provided for information/educational purposes only.)THIS TEST WAS PERFORMED AT:[facility] [employer] [place] [phone] GONZALEZ MD HPV mRNA E6/E7 TNP [facility] HPV 16 RNA [facility] HPV 18/45 RNA [facility] 06/26/2023 1:05 PM EDT 06/27/2023 2:00 PM EDT us Gabriela Noriega [facility] CYTOLOGY ORDERABLES F inal Result [facility] [address] [place] [phone] * Pap Smear (06/26/2023 1:05 PM EDT) Swab Cervix uteri structure / Unknown 06/26/2023 1:05 PM EDT 06/27/2023 2:00 PM EDT Narrative [facility] - 07/10/2023 10:51 AM EDT ----- ------- Name: Sherry Ferguson I Age/Sex: 57/F : 1965 Unit#: [id number] Attend Dr: NIRALI BOWSER NP Re06/26/23 Status: DEP REF Location: [facility] Disch: ----- ------- SPEC : [id number] RECD: 06/27/23-1399 STATUS: ANGELA HADDAD NUM: [id number] ZE: 06/26/23-[address] [facility] [address]: GABRIELA NORIEGA [facility] ENTERED: 06/27/23-144 SP TYPE: Pap Smr OT DR: ORDERED: Pap Smear Interpretation Satisfactory for evaluation. Negative for intraepithelial lesion or malignancy. HPV mRNA E6/E7: NOT DETECTED This assay detects E6/E7 viral messenger RNA (mRNA) from 14 high-risk HPV types (16, 18, 31, 33, 35, 39, 45, 51, 52, 56, 58, 59, 66, 68) HPV testing performed by [employer], [place], [place]. See reference laboratory portion of the EMR for entire report. Clinical Information LMP: Postmenopausal Previous PAP test: 2019, WNL Material Received ThinPrep-Vaginal/Cervical ----- ------- Signed (signature on file) LATOYA Curran (ASCP) 07/10/23 1051 ----- ------- END OF REPORT Gabriela Noriega [facility] CYTOLOGY ORDERABLES F inal Result [facility] [address] [place] [phone] * Colonoscopy (10/29/2021) Colonoscopy Normal Normal Narrative Татьяна Thomason - 10/29/2021 Recommended repeat colonoscopy in 2 years poor prep Historical Provider HEALTH MAINTENANCE Edited Result - Final * HEPATITIS C AB W/REFL TO HCV RNA, QN, PCR (06/25/2020 12:08 PM EDT) HEPATITIS C ANTIBODY NON-REACT CANDE NON-REACT CANDE [facility] INDEX 0.02 <1.00 [facility] Comment: HCV antibody was non-reactive. There is no laboratory evidence of HCV infection. In most cases, no further action is required. However, if recent HCV exposure is suspected, a test for HCV RNA (test code 91049) is suggested. For additional information please refer to http://education.[employer]/faq/PRJ29p9 (This link is being provided for informational/ educational purposes only.) 06/25/2020 12:0 8 PM EDT Jose Villa MD HISTORICAL/NON ORDERABLE LABS Fi nal Result [facility] [address] [place] [address], from Last 3 Months or Most Recently Relevant to Health Maintenance Insurance [facility] < 65 [facility] Care Teams Test Man Relationship Specialty Start Date End Date Nirali Bowser ANP [address] [place] [phone] PCP - General Family Medicine 05/05/22
--- OUTSIDE RECORDS SUMMARY | 2025-02-12 11:33 | XMS_ITS | Encounter Summary ---
Author Organization [employer] Address [address] [facility] [address] [place] [address] Care Team Providers Care Residential Coordinator Name Role Phone Anna Singh Primary Care Provider [phone] Reason for Visit * Reason Onset Date Comments Medication Question 11/18/2022 Encounter Details Date Type Department Care Team ([facility] Contact Info) Description 11/18/2022 Telephone [facility] [address] [place], [place] [phone] Anna Singh ANP [address] [place] [address] Medication Question Social History Tobacco Use Types [...] 11/18/2022 12:45 PM EDT Michael Menjivar from [facility] calling to inform script that was sent for Alcohol Swabs pads needsdirections. documented in this encounter Plan of Treatment Upcoming Encounters Date Type Department Care Team ([facility] Contact Info) Description 02/25/2025 1:00 PM EST Office Visit [facility] [address] [place] [address] Anna Singh ANP [address] [place] [address] 05/15/2025 2:15 PM EST Office Visit [facility] ADULT DENTAL [address] [place], [place] [phone] Lise Rogers [address] [place] [address] documented as of this encounter Visit Diagnoses Not on filedocumented in this encounter Additional Health Concerns Assessment Noted Time PHQ-9 Depression Total Score: 14 023 2:33 PM EDT documented as of this encounter Care Teams Residential Coordinator Relationship Specialty Start Date End Date Anna Singh ANP [address] [place] [phone] PCP - General Family Medicine 05/05/22 documented as of this encounter
== END 2025-02-12 09:55 | disposition home or self-care (01) ==
LOC: HO.MRI 09:54
PROVIDERS: PCP Nurse Practitioner Primary Care; Visit Provider Family Medicine
DX: R93.7 Abnormal findings on diagnostic imaging of other parts of musculoskeletal system (principal); M54.50 Low back pain, unspecified
CPT/HCPCS: 72148